=== PATIENT | male | born 1965 | race Caucasian/White ===

== ENCOUNTER 2022-07-18 02:30 | Inpatient (IN) | payer MEDICAID, SELFPAY ==
[2022-07-18] VITALS (15 sets, daily range): BP systolic 145–227; BP diastolic 76–128; PULSE 56–89; RESP 16–22; TEMP 36.4–37.1; O2SAT 93–97; BMI 30.7
--- NOTE | 2022-07-18 02:47 | USR_ITS ---
PROCEDURE INFORMATION: Exam: US Abdomen, Limited; Right Upper Quadrant Exam date and time: 07/18/2022 3:10 AM Age: 57 years old Clinical indication: Abdominal pain; Patient HX: Ruq pain 12/11 today TECHNIQUE: Imaging protocol: Real time ultrasound of the abdomen with image documentation. Limited exam focused on the right upper quadrant. COMPARISON: No relevant prior studies available. FINDINGS: Liver: Fatty infiltration of the liver. Gallbladder: Prominent echogenic bile in the gallbladder and small quantity of pericholecystic fluid. Technologist reported positive sonographic Ac sign. Biliary ducts: Normal caliber of the incompletely visualized common bile duct measuring 4 mm in diameter. Pancreas: Partial obscuration of the pancreas by bowel gas. Right kidney: Normal morphology of the visualized right kidney. No hydronephrosis. Aorta: Normal caliber of the incompletely visualized abdominal aorta, which is partially obscured by bowel gas. Inferior vena cava: Unremarkable IVC is visualized. US/US gall bladder [id number] IMPRESSION: Abnormal gallbladder with prominent echogenic bile, pericholecystic fluid, and technologist reported positive sonographic Ac sign.
--- NOTE | 2022-07-18 02:48 | ED_ITS ---
HPI - Abdominal Pain General: Chief Complaint: Abdominal Pain Stated Complaint: R flank pain Time Seen by Provider: 07/18/22 02:32 Source: patient Mode of arrival: ambulatory Limitations: no limitations History of Present Illness: 57-year-old male states that he is been having severe right upper quadrant abdominal pain since 11 last night he states he had eaten fish tank and had pain onset after that. He states the pain is sharp in nature rates an 8 out of 10 much worse with palpation he denies any radiation of his pain denies any issues with his gallbladder in the past no abdominal surgeries in the past. He had no vomiting some nausea. Associated Symptoms: Denies chills, dysuria and fever(s) Review of Systems Const: Denies: fever(s), chills, body aches or change in appetite Eyes: Denies: blurry vision or eye discomfort ENMT: Denies: throat pain or dental pain Card: Denies: chest pain Resp: Denies: dyspnea GI: Reports: abdominal pain : Denies: dysuria Musc: Denies: neck pain or back pain Skin/Breast: Denies: rash Neuro: Denies: headache(s) Psych: Denies: depression Simeon/Lymph: Denies: easy bruising All/Imm: Denies: urticaria PFSH ED PFSH: Medical History (Updated 07/18/22 @ 04:14 by Pal Coles MD) No pertinent past medical history Social History (Updated 07/18/22 @ 02:49 by Pal Coles MD) Substance/Drug Use: never Physical Exam Const: COMMON NORMALS: no acute distress, patient oriented x3 and healthy appearing HENMT: COMMON NORMALS: normocephalic and atraumatic HEAD & SCALP: normocephalic and atraumatic Eye: COMMON NORMALS: Equal, round and reactive pupils present and EOMs intact bilaterally PUPIL: Yes Equal, round and reactive pupils present Neck/C-Spine: COMMON NORMALS: full ROM and supple Chest: COMMONS NORMALS: normal inspection of the chest and normal palpation of entire chest wall Resp: COMMON NORMALS: normal respiratory effort, No retractions, No use of accessory muscles and clear to auscultation bilaterally AUSCULTATION: clear to auscultation bilaterally Cardio: COMMON NORMALS: regular rate, regular rhythm and No murmurs present (Cardio) RATE: regular rate RHYTHM: regular rhythm GI: COMMON NORMALS: Normal to inspection, nondistended, normoactive bowel sounds present, Soft to palpation and no masses PALPATION: Yes Soft to palpation and Yes Tenderness to palpation present (GI) Details: RUQ Extremity: COMMON NORMALS: normal to inspection and full ROM Neuro: COMMON NORMALS: patient oriented x3, moves all extremities and no focal motor deficits Psych: COMMON NORMALS: mental status grossly normal, Normal thought process present and cooperative THOUGHT PROCESS: Normal thought process present Skin: COMMON NORMALS: no rashes or lesions noted and no wounds GENERAL SKIN EXAM: no rashes or lesions noted Course Vital Signs: Vital signs: Vital Signs Temperature 97.6 F 07/18/22 02:46 Pulse Rate 72 07/18/22 02:53 Respiratory Rate 18 07/18/22 03:05 Blood Pressure 216/116 07/18/22 02:53 Pulse Oximetry 93 07/18/22 02:53 Oxygen Delivery Me thod 07/18/22 02:53 MDM - Abdominal Pain Medical Decision Making Patient presents with right upper quadrant pain he is quite tender ultrasound does show cholecystitis he also has hypertension here is likely undiagnosed I spoke to hospitalist along with surgeon will admit at this time patient given IV antibiotics. Lab Data 07/18/22 03:00 07/18/22 03:00 Labs/Radiology: Laboratory Results WBC 11.4 10^3/uL (4.0-10.0) H 07/18/22 03:00 RBC 6.47 10^6/uL (4.1-5.3) H 07/18/22 03:00 Hgb 18.1 g/dL (11.7-16.6) H 07/18/22 03:00 Hct 51.5 % (42.0-52.0) 07/18/22 03:00 MCV 79.6 fl (80-94) L 07/18/22 03:00 MCH 28.0 pg (28.0-34.0) 07/18/22 03:00 MCHC 35.1 g/dL (30.0-36.0) 07/18/22 03:00 RDW 12.4 % (12.1-15.1) 07/18/22 03:00 Plt Count 161 10^3/cmm (130-400) 07/18/22 03:00 MPV 10.7 fL (7.4-10.4) H 07/18/22 03:00 Neut % (Auto) 81.3 % 07/18/22 03:00 Lymph % (Auto) 13.6 % 07/18/22 03:00 Gibson % (Auto) 3.3 % 07/18/22 03:00 Eos % (Auto) 0.9 % 07/18/22 03:00 Baso % (Auto) 0.4 % 07/18/22 03:00 Neut # (Auto) 9.22 10^3/uL (1.8-7.7) H 07/18/22 03:00 Lymph # (Auto) 1.5 10^3/uL (0.8-4.8) 07/18/22 03:00 Gibson # (Auto) 0.4 10^3/uL (0.2-0.9) 07/18/22 03:00 Eos # (Auto) 0.1 10^3/uL (0.0-0.8) 07/18/22 03:00 Baso # (Auto) 0.1 10^3/uL (0.0-0.1) 07/18/22 03:00 Nucleated RBC % (auto) 0 % 07/18/22 03:00 Nucleated RBCs # 0.0 /100WBC 07/18/22 03:00 Sodium 134 mmol/L (136-145) L 07/18/22 03:00 Potassium 4.1 mmol/L (3.5-5.1) 07/18/22 03:00 Chloride 99 mmol/L (98-107) 07/18/22 03:00 Carbon Dioxide 22 mmol/L (22-29) 07/18/22 03:00 Anion Gap 17.1 (5-19) 07/18/22 03:00 BUN 13 mg/dL (6-20) 07/18/22 03:00 Creatinine 1.0 mg/dL (0.7-1.2) 07/18/22 03:00 GFR Calculation 77.0 mL/min (90-130) L 07/18/22 03:00 Glucose 375 mg/dL (65-115) H 07/18/22 03:00 Calculated Osmolality 293 mOsm/kg (285-295) 07/18/22 03:00 Calcium 9.0 mg/dL (8.5-10.5) 07/18/22 03:00 Total Bilirubin 0.7 mg/dL (0.15-1.2) 07/18/22 03:00 AST 18 U/L (0-40) 07/18/22 03:00 ALT 27 U/L (0-41) 07/18/22 03:00 Alkaline Phosphatase 131 U/L (40-130) H 07/18/22 03:00 Total Protein 6.9 g/dL (6.6-8.7) 07/18/22 03:00 Albumin 4.0 g/dL (3.5-5.2) 07/18/22 03:00 Globulin 2.9 g/dL (1.3-4.6) 07/18/22 03:00 Lipase 27 U/L (13-60) 07/18/22 03:00 EKG Data EKG 1: I personally reviewed and interpreted this EKG as follows: EKG interpretation date: 07/18/22 EKG interpretation time: 02:55 Interpretation: nsr hr [address] or t wave abnormalities qrs 104 qtc 397 Discharge Plan Discharge Patient Disposition: Admitted As Inpatient Clinical Impression: Cholecystitis, Hypertension Coding Level of Care Code ED Imaging Science Professor for Cyn Cummings
--- NOTE | 2022-07-18 02:48 | ECG_ITS ---
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
[2022-07-18] MEDS: ondansetron 2 mg/ML SDV 2 mL 4 MG IVP (03:04)
[2022-07-18] MEDS: sodium chloride 0.9% 1,000 ML 999 ML IV (03:04)
[2022-07-18] MEDS: HYDROmorphone 1 mg/mL INJ 1 mL IVP (03:05)
[2022-07-18 03:12] LABS: Basophils # 0.1 10^3/uL (0.0-0.1); Basophils % 0.4 %; Eosinophils # 0.1 10^3/uL (0.0-0.8); Eosinophils % 0.9 %; Hematocrit 51.5 % (42.0-52.0); Hemoglobin 18.1 g/dL (11.7-16.6); Lymphocytes # 1.5 10^3/uL (0.8-4.8); Lymphocytes % 13.6 %; Mean Corpuscular HGB Conc 35.1 g/dL (30.0-36.0); Mean Corpuscular Volume 79.6 fl (80-94); Mean Platelet Volume 10.7 fL (7.4-10.4); Monocytes # 0.4 10^3/uL (0.2-0.9); Monocytes % 3.3 %; Neutrophils # 9.22 10^3/uL (1.8-7.7); Neutrophils % 81.3 %; Nucleated Red Blood Cells % 0 %; Platelet Count 161 10^3/cmm (130-400); Red Blood Count 6.47 10^6/uL (4.1-5.3); Red Cell Distribution Width 12.4 % (12.1-15.1); White Blood Count 11.4 10^3/uL (4.0-10.0)
[2022-07-18 03:29] LABS: Alanine Aminotransferase 27 U/L (0-41); Alkaline Phosphatase 131 U/L (40-130); Anion Gap 17.1 (5-19); Aspartate Amino Transferase 18 U/L (0-40); Blood Urea Nitrogen 13 mg/dL (6-20); Carbon Dioxide 22 mmol/L (22-29); Chloride 99 mmol/L (98-107); Globulin 2.9 g/dL (1.3-4.6); Glucose 375 mg/dL (65-115); Lipase 27 U/L (13-60); Osmolality Calculated 293 mOsm/kg (285-295); Potassium 4.1 mmol/L (3.5-5.1); Sodium 134 mmol/L (136-145); Total Bilirubin 0.7 mg/dL (0.15-1.2); Total Protein 6.9 g/dL (6.6-8.7)
[2022-07-18] MEDS: hyDRALAzine 20 mg/mL INJ 1 mL 10 MG IVP (04:22)
[2022-07-18] MEDS: piperacillin-tazobactam 3.375 GM in sodium chloride 0.9% (plus) 50 ML IV ×3 (04:22→20:17)
[2022-07-18 04:24] LABS: Add Urine Microscopic? NO; Charge for UA Resulting for Rev
[2022-07-18 04:42] LABS: Bilirubin Urine Neg (Negative); Blood Urine Neg (Negative); Glucose Urine UA 4+ (Normal); Ketones Urine Negative (Negative); Leukocyte Esterase Urine Negative (Negative); Nitrate Urine Negative (Negative); Protein Urine Neg (Negative); Specific Gravity, Urine 1.015 (1.005-1.030); Urine Appearance Clear (CLEAR); Urine Color Yellow (Yellow); Urobilinogen Urine Norm (Negative); pH Urine 6 (5-7)
--- NOTE | 2022-07-18 05:13 | P.HP_ITS ---
Providers/Chief Complaint Admitting Physician: Lowell Bojorquez Chief Complaint: R flank pain History of Present Illness Pleasant 57-year-old gentleman without formal diagnosis of hypertension, but not measuring blood pressures at home sometimes with his partner's blood pressure cuff blood pressures seem to run in the 170s, smoking, right inguinal hernia, recent left shoulder injury, otherwise at baseline state of health, sta rted having progressive right upper quadrant pain yesterday getting much worse in the evening. He has not had any fever nausea or vomiting. In ER noted leukocytosis 11.4, afebrile, without tachycardia, very hypertensive initially 227/128 which improved down to 171/102 after pain medication. Noted alk phos with mild elevation 131. T. bili, transaminases normal. Normal lipase. Unremarkable UA. Right upper quadrant ultrasound with signs of cholecystitis. Admission is requested with consultation to surgery. Review of Systems Const: Denies: fever(s), chills, body aches or malaise ENMT: Denies: throat pain Card: Denies: chest pain, edema or dyspnea on exertion Resp: Denies: dyspnea, productive cough or change in phlegm color GI: Reports: abdominal pain; Denies: nausea, vomiting, diarrhea, constipation, hematochezia or melena : Denies: flank pain, difficulty urinating or urinary frequency Musc: Denies: joint redness Skin/Breast: Denies: rash or new lesions Neuro: Denies: headache(s) Medications/Allergies Allergies Allergy/AdvReac Type Severity Reaction Status Date / Time No Known Allergies Allergy Verified 07/18/22 04:19 PFSH Acute PFSH: Medical History No pertinent past medical history Recurrent inguinal hernia Smokes cigarettes Surgical History H/O hernia repair Family History Other Unknown family medical history Social History Smoking and tobacco status: current every day smoker Alcohol intake: current Alcohol intake frequency: holidays/special occasions only Substance/Drug Use: never Lives independently: Yes Household members: significant other Current occupational status: employed Vitals/I&O/Wt Last Vital Signs Temp 97.6 F 07/18/22 02:46 Pulse 89 07/18/22 04:30 Resp 16 07/18/22 04:30 BP 171/102 07/18/22 03:53 Pulse Ox 96 07/18/22 04:30 O2 Del Method 07/18/22 03:53 07/17/22 07/17/22 07/18/22 14:59 22:59 06:59 Intake Total 1000 / 1000 Balance 1000 / 1000 Weight last 48 hrs Weight 99.79 kg Physical Exam Const: COMMON NORMALS: patient oriented x3 and alert GENERAL APPEARANCE: cooperative ORIENTATION/CONSCIOUSNESS: Yes awake HENMT: COMMON NORMALS: oropharynx normal Neck/C-Spine: COMMON NORMALS: no JVD Resp: COMMON NORMALS: normal respiratory effort and clear to auscultation bilaterally AUSCULTATION: clear to auscultation bilaterally Cardio: COMMON NORMALS: no JVD, regular rhythm, S1 normal heart sound present, S2 normal heart sound present and No murmurs present (Cardio) RHYTHM: regular rhythm HEART SOUNDS: S1 normal heart sound present and S2 normal heart sound present GI: COMMON NORMALS: Normal to inspection, nondistended, normoactive bowel sounds present and Soft to palpation PALPATION: Yes Soft to palpation and Yes Tenderness to palpation present (GI) Details: RUQ OTHER: Soft, nontender R inguinal hernia. Extremity: COMMON NORMALS: no joint enlargement and no pedal edema OTHER: L shoulder antalgic position, no swelling or redness. Neuro: COMMON NORMALS: patient oriented x3 and moves all extremities SENSORIUM/ORIENTATION: Yes alert Skin: COMMON NORMALS: no rashes or lesions noted GENERAL SKIN EXAM: no rashes or lesions noted Data 07/18/22 03:00 07/18/22 03:00 A&P Assessment and plan (1) Cholecystitis: Right upper quadrant pain and tenderness, mild alk phos elevation, reported signs of cholecystitis on preliminary ultrasound read. Radiology read pending. Surgery is consulted for further assessment for suspected cholecystitis, possible cholecystectomy. His blood pressure was elevated in ER, he does sounds like have hypertension, discussed with him and his significant other. Blood pressure is better after pain medication and hydralazine to 171/102. Would not try to pursue to decrease to blood pressure much further at the moment as with anesthesia it decreased further, and additionally sounds like he usually runs in 70s at baseline. Continue pain control to help manage blood pressure. He otherwise is very active, he has had recent shoulder injury on the left, and will need to follow-up with regards to this, and also has right inguinal hernia recurrence after prior repair, but he is ambulatory, without any limitations of shortness of breath, chest pain, or other. Baseline EKG has been obtained. In case proceeding with surgery would proceed with usual precautions. In the meantime continue Zosyn. NPO. Follow-up CBC and liver parameters requested. Discussed with ER physician, ER documentation reviewed. (2) Hypertension: Received hydralazine in ER as well as pain medication. We will add hydralazine as needed in case blood pressure again rising above 200 mmHg. Will not at the moment initiate oral medication yet. Long-term would benefit from treatment as discussed with his significant other. He states he already tries to avoid salt. (3) Smokes cigarettes: Not planning to quit. Declines nicotine replacement. Follow-up with PCP. (4) Injury of left shoulder: Recent injury at work with a low drainage heard a pop in his left shoulder. Has been having pain. No significant swelling or erythema. We will obtain plain x- ray. Should follow-up with PCP for reassessment and further referral for MRI. (5) Recurrent inguinal hernia: Previously repaired right inguinal hernia now with recurrence. No suggestion of incarceration, should follow-up with PCP and outpatient follow-up with surgery. Plan Consulted case management: Needs PCP Attestations Medical Necessity Statement*: Place in observation for additional assessment of management of acute cholecystitis, untreated hypertension. Diagnoses Cholecystitis K81.9 Hypertension I10 Smokes cigarettes F17.210 Injury of left shoulder S49.92XA Recurrent inguinal hernia K40.91
--- NOTE | 2022-07-18 07:25 | PC.NURSE ---
Report called to SIRISHA Peoples on med surg
--- NOTE | 2022-07-18 08:03 | XR_ITS ---
WS: [id number] XR shoulder LT min 2V* [id number] REASON FOR EXAM: pain after injury with a wrench FINDINGS: No fracture or focal bone lesion. Glenohumeral joint is intact. No bony abnormality of the glenoid or humeral head. No soft tissue abnormality. Moderate osteophytosis of the acromioclavicular joint. XR/XR shoulder LT min 2V* [id number] IMPRESSION: No acute abnormality. Osteoarthritis of the acromioclavicular joint.
[2022-07-18 08:07] LABS: Glucose Point of Care 290 mg/dL (70-110)
[2022-07-18] MEDS: hyDRALAzine 20 mg/mL INJ 1 mL 5 MG IVP (09:01)
[2022-07-18 09:09] LABS: Estmated Average Glucose 232; Hemoglobin A1C 9.7 % (4.0-6.0)
--- NOTE | 2022-07-18 09:59 | P.CONIM_ITS ---
Providers/Reason For Consult Consulting Physician/Specialty*: Fareed Brooks M.D./General Surgery Reason for Consult*: Acute RUQ abdominal pain Attending Physician: Gerardo Ovalle MD History of Present Illness History of Present Illness Malachi Ames Jr is a 57 year old male who presented to our ER last night following supper, with insidious onset of RUQ abdominal pain. He attempted to induce vomiting, and evacuated his bowels for pressure relief with some success. However, he continues to feel abdominal discomfort. He says that this has been worsening over the past month, along with more stool frequency. His reports that he is experiencing progressive urinary frequency and urgency. He does not seek medical care reliably, although he is currently being assessed for recurrent right inguinal hernia following prior repair. Review of Systems General: Reports: 10 or more systems reviewed and unremarkable except in HPI and below Const: Denies: fever(s), chills or night sweats Eyes: Denies: change in vision, blurry vision or yellow eyes ENMT: Denies: odynophagia Card: Denies: chest pain, palpitations or syncope Resp: Denies: dyspnea or productive cough GI: Reports: abdominal pain (Right upper quadrant) and diarrhea : Reports: urinary frequency and urinary urgency Musc: Denies: neck pain or back pain Neuro: Denies: behavioral changes Psych: Denies: anxiety, depression or change in appetite Medications/Allergies Home Medications Medication Instructions Recorded Confirmed Last Taken Type glucosamine-chondroitin 250 mg-200 2 tab PO TID 07/18/22 07/18/22 Unknown History mg tablet (Osteo Bi-Flex) mjxkzths-hltxmnru-vklpl acid 400 1 tab PO DAILY 07/18/22 07/18/22 Unknown History mcg-vit K 20 mcg-lycop 300 mcg tablet Allergies Allergy/AdvReac Type Severity Reaction Status Date / Time No Known Allergies Allergy Verified 07/18/22 04:19 Current Medications Generic Name Dose Route Start Last Admin Trade Name Freq PRN Reason Stop Dose Admin Hydralazine HCl 5 mg 07/18/22 08:03 07/18/22 09:01 Hydralazine 20 Mg/Ml Inj 1 Ml IVP 5 mg Q4H PRN Administration HYPERTENSION PFSH Acute PFSH: Medical History No pertinent past medical history Recurrent inguinal hernia Smokes cigarettes Surgical History H/O hernia repair Family History Other Unknown family medical history Social History Smoking and tobacco status: current every day smoker Alcohol intake: current Alcohol intake frequency: holidays/special occasions only Substance/Drug Use: never Lives independently: Yes Household members: significant other Current occupational status: employed Vitals/I&O/Wt Last Vital Signs Temp 98.1 F 07/18/22 07:39 Pulse 66 07/18/22 08:03 Resp 16 07/18/22 08:03 BP 211/96 07/18/22 08:03 Pulse Ox 96 07/18/22 08:03 O2 Del Method 07/18/22 09:41 07/17/22 07/18/22 07/18/22 22:59 06:59 14:59 Intake Total 1050 / 1050 Balance 1050 / 1050 Weight last 48 hrs Weight 220 lb Weight 220 lb Physical Exam Narrative: Well-developed, well-nourished male in no distress at time of my assessment Const: COMMON NORMALS: average body habitus, patient oriented x3 and healthy appearing HENMT: COMMON NORMALS: normocephalic and atraumatic HEAD & SCALP: normocephalic and atraumatic Eye: COMMON NORMALS: Equal, round and reactive pupils present, EOMs intact bilaterally and no scleral icterus PUPIL: Yes Equal, round and reactive pupils present Neck/C-Spine: COMMON NORMALS: full ROM and supple Lymph: LYMPHATIC: no lymphadenopathy noted Resp: COMMON NORMALS: clear to auscultation bilaterally AUSCULTATION: clear to auscultation bilaterally Cardio: COMMON NORMALS: regular rhythm and No murmurs present (Cardio) RHYTHM: regular rhythm GI: COMMON NORMALS: Soft to palpation PALPATION: Yes Soft to palpation, Yes Tenderness to palpation present (GI) Details: RUQ, No Hepatosplenomegaly present and No Rebound tenderness present : COMMON NORMALS: Yes no CVA tenderness BLADDER/KIDNEY EXAM: Yes no CVA tenderness Back/Pelvis: COMMON NORMALS: no CVA tenderness Extremity: COMMON NORMALS: full ROM Neuro: COMMON NORMALS: patient oriented x3 Psych: COMMON NORMALS: mental status grossly normal, cooperative and speech normal SPEECH: Yes normal speech Data 07/18/22 03:00 07/18/22 03:00 US: My impression: Biliary sludge, no clear gallstones A&P Assessment and plan (1) Acute cholecystitis without calculus: I think it is clear that this patient has both undiagnosed hypertension and undiagnosed type II diabetes mellitus, and needs medical stabilization prior to embarkation upon a general anesthetic/laparoscopic cholecystectomy. At the same time, diabetics are inclined toward a more severe perioperative course with gallbladder infection, so some precipitousness is in order to address underlying possible gall bladder infection, including surgical intervention on this visit. Plan: await medical assessment/stabilization first, in anticipation of possible laparoscopic cholecystectomy in the next 24-72 hours. Coding Level of Care Code Acute Code for [facility] Fwd Diagnoses Acute cholecystitis without calculus K81.0
--- NOTE | 2022-07-18 11:21 | P.PN_ITS ---
Subjective Subjective: 57yo M seen at bedside States he is having epigastric and RUQ pain. slightly improved from admission. pt admits to poor diet. No significant PMHx but pt newly diagnosed HTN and DM2. Denies emesis, but admits to nausea no CP but continues to have discomfort. Vitals/I&O/Wt Last Vital Signs Temp 98.1 F 07/18/22 07:39 Pulse 66 07/18/22 08:03 Resp 16 07/18/22 08:03 BP 160/79 07/18/22 10:18 Pulse Ox 96 07/18/22 08:03 O2 Del Method 07/18/22 09:41 07/17/22 07/18/22 07/18/22 22:59 06:59 14:59 Intake Total 1050 / 1050 Balance 1050 / 1050 Weight last 48 hrs Weight 220 lb Weight 220 lb Physical Exam Narrative: General: AOx3, no acute distress, well developed, well nourished, appears stated age psych: appropriate mood and affect. good judgment and insight. No suicidal or homicidal ideation. Head: atraumatic, normocephalic, no mass/lesions Eyes: conjunctiva clear w/o exudate or hemorrhage. non-icteric, EOM intact, PERRLA. no signs of nystagmus Nose: nasal mucosa pink, septum midline Oropharynx: good dentition, pink moist mucosa, non-deviated tongue, no buccal nodules/lesions. no pharyngeal exudate Neck: FROM, no lymphadenopathy, no tracheal deviation, non tender, thyroid gland normal w/o mass. supple Chest: atraumatic, symmetrical CVD: RRR, normal S1 and S2, no M/R/G. 2+ pulse x 4 extremities, no JVD, no son tid bruit. Lungs: clear lung sounds in all bryant, no rhonchi, wheezing, rales. Abdomen: generalized ttp worse in RUQ, ND, soft, NABS. No hepatosplenomegaly, no mass. umbilicus midline w/o herniation : not done on todays examination Rectal: not done on todays examination Spine: no visible deformities, FROM, 5/5 strength, no lordosis or kyphosis. no paraspinal ttp.non tender bony features. no discomfort with ROM Extremities: FROM and 5/5 strength in BUE and BLE. no visible joint abnormalities on active and passive ROM. Neuro: CNII-XII grossly intact. No atrophy, weakness, tremors or clonus.? 2+ DTR, no sensory abnormalities. Skin:? no rash, vesicles, lesions. Data 07/18/22 03:00 07/18/22 03:00 A&P Assessment and plan (1) Acute cholecystitis without calculus: Seen by Dr. Brooks (gen surg) continue IV Zofran will hold off on surgery at this time givne uncontrolled HTN and DM2. Re-eval in AM (2) Hypertension: Hydralazine 5ml IVP q4hrs PRN will start losartan 50mg, Norvasc 5mg (3) DM type 2 (diabetes mellitus, type 2): A1c 9.7 newly diagnosed DM2 LDSSI will start metformin 500mg BID, diabetic diet (4) Recurrent inguinal hernia: Previously repaired right inguinal hernia now with recurrence.? No suggestion of incarceration, should follow-up with PCP and outpatient follow-up with surgery. (5) Tobacco use disorder: no desire to quit (6) Injury of left shoulder: Recent injury at work with a low drainage heard a pop in his left shoulder.? Has been having pain.? No significant swelling or erythema.? We will obtain plain x- ray.? Should follow-up with PCP for reassessment and further referral for MRI. monitor as OP Plan will monitor BP and glucose if improved will re-eval in AM for surgery diabetic diet, NPO at tn Attestations Medical Necessity Statement*: requires hospitalization in order to control blood pressure and glucose prior to potential lap carolyn Coding Level of Care Code 58209 Diagnoses Acute cholecystitis without calculus K81.0 Hypertension I10 DM type 2 (diabetes mellitus, type 2) E11.9 Recurrent inguinal hernia K40.91 Tobacco use disorder F17.200 Injury of left shoulder S49.92XA
[2022-07-18 12:46] LABS: Glucose Point of Care 306 mg/dL (70-110)
[2022-07-18] MEDS: insulin lispro 100 unit/1 mL SUBCUT ×2 (12:59→18:35)
[2022-07-18] MEDS: losartan 50 mg Tablet PO (13:01)
[2022-07-18 17:19] LABS: Glucose Point of Care 219 mg/dL (70-110)
[2022-07-18] MEDS: metformin XR 500 MG Tablet PO (18:33)
[2022-07-18] MEDS: HYDROmorphone 1 mg/mL INJ 1 mL 0.5 MG IVP (18:33)
[2022-07-18] MEDS: amlodipine 5 mg Tablet PO (20:16)
[2022-07-18 21:20] LABS: Glucose Point of Care 254 mg/dL (70-110)
[2022-07-19] VITALS (19 sets, daily range): BP systolic 118–165; BP diastolic 71–91; PULSE 54–95; RESP 16–18; TEMP 36.1–36.9; O2SAT 90–98
[2022-07-19] MEDS: piperacillin-tazobactam 3.375 GM in sodium chloride 0.9% (plus) 50 ML IV ×3 (03:20→23:02)
[2022-07-19] MEDS: HYDROmorphone 1 mg/mL INJ 1 mL 0.5 MG IVP (03:29)
[2022-07-19 04:25] LABS: Basophils # 0.1 10^3/uL (0.0-0.1); Basophils % 0.4 %; Eosinophils # 0.3 10^3/uL (0.0-0.8); Eosinophils % 2.2 %; Hematocrit 49.8 % (42.0-52.0); Lymphocytes # 3.2 10^3/uL (0.8-4.8); Lymphocytes % 28.1 %; Mean Corpuscular HGB Conc 34.1 g/dL (30.0-36.0); Mean Corpuscular Hemoglobin 27.8 pg (28.0-34.0); Mean Corpuscular Volume 81.5 fl (80-94); Mean Platelet Volume 11.5 fL (7.4-10.4); Monocytes # 0.6 10^3/uL (0.2-0.9); Monocytes % 5.2 %; Neutrophils # 7.13 10^3/uL (1.8-7.7); Neutrophils % 63.6 %; Nucleated Red Blood Cells % 0 %; Platelet Count 158 10^3/cmm (130-400); Red Blood Count 6.11 10^6/uL (4.1-5.3); Red Cell Distribution Width 12.8 % (12.1-15.1); White Blood Count 11.2 10^3/uL (4.0-10.0)
[2022-07-19 04:49] LABS: Alanine Aminotransferase 20 U/L (0-41); Albumin Level 3.6 g/dL (3.5-5.2); Alkaline Phosphatase 101 U/L (40-130); Anion Gap 14.9 (5-19); Aspartate Amino Transferase 12 U/L (0-40); Blood Urea Nitrogen 14 mg/dL (6-20); Calcium 8.9 mg/dL (8.5-10.5); Carbon Dioxide 24 mmol/L (22-29); Chloride 101 mmol/L (98-107); Globulin 2.7 g/dL (1.3-4.6); Glucose 241 mg/dL (65-115); Osmolality Calculated 290 mOsm/kg (285-295); Potassium 3.9 mmol/L (3.5-5.1); Sodium 136 mmol/L (136-145); Total Bilirubin 0.9 mg/dL (0.15-1.2); Total Protein 6.3 g/dL (6.6-8.7)
[2022-07-19 06:23] LABS: Glucose Point of Care 250 mg/dL (70-110)
--- NOTE | 2022-07-19 07:08 | PM.PN ---
Subjective Subjective: 57yo M seen at bedside States he is feeling improved this AM. still with RUQ pain. NPO overnight. feeling improved with new medication. Denies fevers, chills, Nausea, emesis, diarrhea, CP, palpitations, SOB Vitals/I&O/Wt Last Vital Signs Temp 98.3 F 07/19/22 04:00 Pulse 60 07/19/22 04:00 Resp 16 07/19/22 04:00 BP 118/71 07/19/22 04:00 Pulse Ox 92 07/19/22 04:00 O2 Del Method 07/19/22 04:00 07/18/22 07/19/22 07/19/22 22:59 06:59 14:59 Intake Total 530 / 770 50 / 820 Output Total 1200 / 1200 1100 / 2300 Balance -670 / -430 -1050 / -1480 Weight last 48 hrs Weight 220 lb Weight 220 lb Physical Exam Narrative: General: AOx3, no acute distress, well developed, well nourished, appears stated age psych: appropriate mood and affect. good judgment and insight. No suicidal or homicidal ideation. Oropharynx: good dentition, pink moist mucosa, non-deviated tongue, no buccal nodules/lesions. no pharyngeal exudate Neck: FROM, no lymphadenopathy, no tracheal deviation, non tender, thyroid gland normal w/o mass. supple Chest: atraumatic, symmetrical CVD: RRR, normal S1 and S2, no M/R/G. 2+ pulse x 4 extremities, no JVD, no carotid bruit. Lungs: clear lung sounds in all bryant, no rhonchi, wheezing, rales. Abdomen: generalized ttp worse in RUQ, ND, soft, NABS. No hepatosplenomegaly, no mass. umbilicus midline w/o herniation Extremities: FROM and 5/5 strength in BUE and BLE. no visible joint abnormalities on active and passive ROM. Neuro: CNII-XII grossly intact. No atrophy, weakness, tremors or clonus.? 2+ DTR, no sensory abnormalities. Skin:? no rash, vesicles, lesions. Data 07/19/22 03:27 07/19/22 03:27 A&P Assessment and plan (1) Acute cholecystitis without calculus: Seen by Dr. Brooks (gen surg) continue IV Zofran pending surgical re-eval this AM (2) Hypertension: BP well controlled this AM. Optomized for surgery now 118/71 Continue Losartan 50mg qAM and Norvasc 5mg qPM Hydralazine 5ml IVP q4hrs PRN (3) DM type 2 (diabetes mellitus, type 2): A1c 9.7 newly diagnosed DM2 LDSSI, Metformin 500mg BID, diabetic diet BG improving but still in 200's (4) Recurrent inguinal hernia: Previously repaired right inguinal hernia now with recurrence.? No suggestion of incarceration, should follow-up with PCP and outpatient follow-up with surgery. (5) Tobacco use disorder: no desire to quit (6) Injury of left shoulder: Recent injury at work with a low drainage heard a pop in his left shoulder.? Has been having pain.? No significant swelling or erythema.? XRAY +ve for OA, no fractures. Consider MRI as OP s/o PCP assessment. Plan pending surgial eval this AM. pt optomized for surgery continue new medications keep NPO this AM Attestations Medical Necessity Statement*: requiring hospitalization for lap carolyn Coding Level of Care Code 97704 Diagnoses Acute cholecystitis without calculus K81.0 Hypertension I10 DM type 2 (diabetes mellitus, type 2) E11.9 Recurrent inguinal hernia K40.91 Tobacco use disorder F17.200 Injury of left shoulder S49.92XA
[2022-07-19] MEDS: insulin lispro 100 unit/1 mL SUBCUT ×2 (08:34→17:22)
[2022-07-19] MEDS: amlodipine 5 mg Tablet PO (08:34)
[2022-07-19] MEDS: losartan 50 mg Tablet PO (08:34)
[2022-07-19] MEDS: enoxaparin 30 mg/0.3 mL Syringe SUBCUT (08:35)
[2022-07-19] MEDS: metformin XR 500 MG Tablet PO ×2 (08:36→17:22)
[2022-07-19] MEDS: sodium chloride 0.9% 500 ML IV (08:36)
[2022-07-19 09:57] LABS: Glucose Point of Care 202 mg/dL (70-110)
[2022-07-19] MEDS: sodium chloride 0.9% 1,000 ML 30 ML IV (10:12)
--- NOTE | 2022-07-19 10:37 | W.PM.OPSUD ---
Surgery/Procedure H&P Update DATE OF PROCEDURE: July 19, 2022 DATE H&P PERFORMED: 07/18/22 CHANGES TO PREVIOUS DOCUMENTATION: No changes. Blood pressure and blood sugar are better-controlled today, and pain is dramatically less PREOP DIAGNOSIS: Acalculous cholecystitis PLANNED PROCEDURE: Operation Date: 07/19/22 10:45 Proposed Procedures p Laparoscopic Cholecystectomy(Not Applicable) - Fareed Brooks MD
--- NOTE | 2022-07-19 10:50 | ANES.PREANE2 ---
Pre-Anesthetic Assessment Height/Weight: Height 1.8 m Weight 99.79 kg Temp Pulse Resp BP Pulse Ox O2 Del Method O2 Flow Rate 98.4 F 67 17 144/84 95 6 07/19/22 09:40 07/19/22 09:40 07/19/22 09:40 07/19/22 09:40 07/19/22 09:40 07/19/22 09:40 07/19/22 10:34 Preop Diagnosis: Acalculous cholecystitis Operation Date: 07/19/22 10:45 Proposed Procedures p Laparoscopic Cholecystectomy(Not Applicable) - Fareed Brooks MD Familial anesthetic complications: none Was Beta Pieter taken within 24 hours: N/A Was Clonidine taken within 24 hours: N/A Social Tobacco and No alcohol Exam alert, oriented x 3 and regular rate & rhythm Airway Submandibular: within normal limits Cervical ROM: within normal limits Mallampati: Class II Dentition: false Pulmonary Chronic Obstructive Pulmonary Disease CV/HEM Hypertension Metabolic Diabetes Mellitus Anesthetic Plan ASA status: 3 Anesthesia: General Medications/Allergies Home Medications Medication Instructions Recorded Confirmed Last Taken Type glucosamine-chondroitin 250 mg-200 2 tab PO TID 07/18/22 07/18/22 Unknown History mg tablet (Osteo Bi-Flex) dbrhokfp-thmezmbd-lrqmx acid 400 1 tab PO DAILY 07/18/22 07/18/22 Unknown History mcg-vit K 20 mcg-lycop 300 mcg tablet Allergies Allergy/AdvReac Type Severity Reaction Status Date / Time No Known Allergies Allergy Verified 07/18/22 04:19 Current Medications Generic Name Dose Route Start Last Admin Trade Name Freq PRN Reason Stop Dose Admin Amlodipine Besylate 5 mg 07/18/22 20:00 07/19/22 08:34 Amlodipine 5 Mg Tablet PO 5 mg DAILY CANDIDO Administration Hydralazine HCl 5 mg 07/18/22 08:03 07/18/22 09:01 Hydralazine 20 Mg/Ml Inj 1 Ml IVP 5 mg Q4H PRN Administration HYPERTENSION Hydromorphone HCl 0.5 mg 07/18/22 08:03 07/19/22 03:29 Hydromorphone 1 Mg/Ml Inj 1 Ml IVP 0.5 mg Q6H PRN Administration SEVERE PAIN Piperacillin Sod/Tazobactam 50 mls @ 12.5 mls/hr 07/18/22 12:00 07/19/22 08:43 Sod 3.375 gm/ Sodium Chloride IV Infused Q8H CANDIDO Infusion Protocol Sodium Chloride 1,000 mls @ 30 mls/hr 07/19/22 10:00 07/19/22 10:12 Sodium Chloride 0.9% IV 07/20/22 09:59 30 mls/hr .Q24H CANDIDO Administration Insulin Human Lispro 0 unit 07/18/22 12:00 07/19/22 08:34 Insulin Lispro 100 Unit/1 Ml SUBCUT 6 unit TIDWM CANDIDO Administration Protocol Losartan Potassium 50 mg 07/18/22 09:00 07/19/22 08:34 Losartan 50 Mg Tablet PO 50 mg DAILY CANDIDO Administration Metformin HCl 500 mg 07/18/22 18:00 07/19/22 08:36 Metformin Xr 500 Mg Tablet PO 500 mg BID CANDIDO Administration PFSH Anesthesia Medical History No pertinent past medical history Recurrent inguinal hernia Smokes cigarettes Surgical History H/O hernia repair Family History Other Unknown family medical history Social History Smoking and tobacco status: current every day smoker Alcohol intake: current Alcohol intake frequency: holidays/special occasions only Lives independently: Yes Household members: significant other Current occupational status: employed Data Anesthesia 07/19/22 03:27 07/19/22 03:27 Short CBC 07/18/22 07/19/22 Range/Units 03:00 03:27 WBC 11.4 H 11.2 H (4.0-10.0) 10^3/uL Hgb 18.1 H 17.0 H (11.7-16.6) g/dL Hct 51.5 49.8 (42.0-52.0) % MCV 79.6 L 81.5 (80-94) fl Plt Count 161 158 (130-400) 10^3/cmm Neut % (Auto) 81.3 63.6 % Neut # (Auto) 9.22 H 7.13 (1.8-7.7) 10^3/uL BMP 07/18/22 07/19/22 03:00 03:27 Sodium 134 L 136 Potassium 4.1 3.9 Chloride 99 101 Carbon Dioxide 22 24 BUN 13 14 Creatinine 1.0 1.1 Glucose 375 H 241 H Calcium 9.0 8.9 Liver Function 07/18/22 07/19/22 Range/Units 03:00 03:27 Total Bilirubin 0.7 0.9 (0.15-1.2) mg/dL AST 18 12 (0-40) U/L ALT 27 20 (0-41) U/L Alkaline Phosphatase 131 H 101 (40-130) U/L Albumin 4.0 3.6 (3.5-5.2) g/dL Urine 07/18/22 Range/Units 03:49 Urine Color Yellow (Yellow) Urine Appearance Clear (CLEAR) Urine pH 6 (5-7) Ur Specific [place] 1.015 (1.005-1.030) Urine Protein Neg (Negative) Urine Glucose (UA) 4+ H (Normal) Urine Ketones Negative (Negative) Urine Nitrate Negative (Negative) Urine Bilirubin Neg (Negative) Ur Leukocyte Esterase Negative (Negative) Cardiac Studies: No Data to Display
--- NOTE | 2022-07-19 12:22 | PM.OP2 ---
Brief Operative Note Date of procedure: 07/19/22 Pre-op diagnosis: Acute acalculous cholecystitis Procedure Done: Laparoscopic cholecystectomy Surgeon: Fareed Brooks Complications: none Post-op Plan: In-hospital observation for diabetes/hypertension Condition: stable Coding Level of Care Code Acute Code for Chg Fwd
--- NOTE | 2022-07-19 12:24 | PM.OP ---
Operative Report Date of procedure: July 19, 2022 Pre-op diagnosis: Preop Diagnosis Acalculous cholecystitis Post-op diagnosis: same Post-op findings: Inflammation of peritoneal reflection on gallbladder Procedure done: Laparoscopic cholecystectomy Specimens removed/disposition: Gallbladder Surgeon: Fareed Brooks M.D. Anesthesia: General Estimated blood loss: 25mL IV fluids: Crystalloid 1400mL Complications: None Findings: Cholecystitis in gallbladder wall Condition: stable Brief History: 57 y.o. male with acute onset RUQ abdominal pain and imaging confirmation consistent with acute acalculous cholecystitis Procedure: Risks and benefits explained to patient, who accepts. Assessed prior to induction of anesthesia and felt to be clinically stable. Three-phase WHO checklist used for timeout. Prepped and draped in usual fashion in supine position. Port sites blocked with 1/4 % bupivicaine. Incision in right flank, verress needle inserted. Abdomen insufflated with CO2 to 14mm Hg, 5 mm port placed. Laparoscope inserted, 12 mm periumbilical port and 5mm RUQ ports placed under direct visualization. Attention to RUQ; inflammation on gallbladder wall noted. Infundibulum of gallbladder identified and dissected with blunt dissection. Cystic duct and cystic artery cliipped and divided between 10mm clips under safety view. Gallbladder removed from liver using electrocautery without incident. 15mL 1/4% bupivicaine injected to right subdiaphragmatic space. Gallbladder delivered through umbilical port and passed off as separate specimen. Hemostasis verified. All instruments removed. Skin sites closed with skin ann. Sterile dressings applied. Sponge and needle counts correct x 2. To PACU in stable condition.
[2022-07-19] MEDS: sodium chloride 0.9% 1,000 ML 100 ML IV (15:06)
[2022-07-19 17:16] LABS: Glucose Point of Care 233 mg/dL (70-110)
--- NOTE | 2022-07-19 18:17 | ANE.PACU2 ---
Inpatient post-anesthesia follow up: Airway intact: Yes Vital signs: Temperature 97.6 F Pulse Rate 68 Respiratory Rate 18 Blood Pressure 141/83 Pulse Oximetry 94 Oxygen Delivery Me thod Room Air Oxygen Flow Rate 6 Fraction of Inspir ed Oxygen Hydration adequate: Yes Nausea and vomiting: No Pain level: 3 Mental status: Baseline
[2022-07-19] MEDS: HYDROcodone-acetaminophen 5-325 mg Tablet 1 TAB PO (20:09)
[2022-07-19 21:15] LABS: Glucose Point of Care 304 mg/dL (70-110)
[2022-07-20] VITALS: BP 176/80; PULSE 80; RESP 17; TEMP 37.1; O2SAT 94
[2022-07-20 00:06] LABS: Glucose Point of Care 280 mg/dL (70-110)
[2022-07-20 01:36] LABS: Glucose Point of Care 261 mg/dL (70-110)
[2022-07-20] MEDS: HYDROcodone-acetaminophen 5-325 mg Tablet 1 TAB PO ×2 (01:41→08:26)
[2022-07-20] MEDS: sodium chloride 0.9% 1,000 ML 100 ML IV (01:43)
[2022-07-20] MEDS: insulin lispro 100 unit/1 mL SUBCUT ×3 (01:44→12:34)
[2022-07-20 04:00] VITALS: BP 122/65; PULSE 69; RESP 17; TEMP 36.7; O2SAT 91
[2022-07-20 06:00] VITALS: PULSE 59
[2022-07-20 06:46] LABS: Glucose Point of Care 183 mg/dL (70-110)
[2022-07-20] MEDS: enoxaparin 30 mg/0.3 mL Syringe SUBCUT (06:54)
[2022-07-20] MEDS: piperacillin-tazobactam 3.375 GM in sodium chloride 0.9% (plus) 50 ML IV (06:56)
[2022-07-20 07:46] VITALS: BP 127/66; PULSE 66; RESP 16; TEMP 36.7; O2SAT 93
[2022-07-20] MEDS: metformin XR 500 MG Tablet PO (08:20)
[2022-07-20] MEDS: amlodipine 5 mg Tablet PO (08:20)
[2022-07-20] MEDS: losartan 50 mg Tablet PO (08:20)
--- NOTE | 2022-07-20 09:19 | P.PN_ITS ---
Subjective Subjective: Thanks for taking care of me. I feel great Vitals/I&O/Wt Last Vital Signs Temp 98.1 F 07/20/22 07:46 Pulse 66 07/20/22 07:46 Resp 16 07/20/22 07:46 BP 127/66 07/20/22 07:46 Pulse Ox 93 07/20/22 07:46 O2 Del Method 07/20/22 07:46 O2 Flow Rate 6 07/19/22 12:24 07/19/22 07/20/22 07/20/22 22:59 06:59 14:59 Intake Total 170 / 2220 1050 / 3270 480 / 480 Output Total 1000 / 1000 Balance 170 / 2195 1050 / 3245 -520 / -520 Weight last 48 hrs Weight 220 lb Physical Exam GI: OTHER: Abdomen benign. Dressings in place. Data 07/19/22 03:27 07/19/22 03:27 A&P Assessment and plan (1) Acute cholecystitis without calculus: At this point, patient is ready for discharge from my standpoint, and has been instructed to avoid operating motor vehicle until 07/23, and to resume all activities as of 07/28. He does not require anything more for postoperative pain that Aleve or Advil. He should return to Dr. Ojeda's clinic around 07/28 for clip removal. Attestations Medical Necessity Statement*: Defer to hospitalist service regarding disposition, as his diabetes remains marginally controlled at present. Coding Level of Care Code Acute Code for [facility] Fwd Diagnoses Acute cholecystitis without calculus K81.0
--- NOTE | 2022-07-20 10:49 | PM.DCS ---
Discharge Providers Date of Admission: 07/19/22 12:05 Date of Discharge: July 20, 2022 Attending Provider at Admission: Lowell Bojorquez Attending Provider at Discharge: Gerardo Ovalle MD Diagnoses at Discharge Discharge Diagnosis (1) Acute cholecystitis without calculus: Status: Acute Reason for Visit Reason for Visit: R flank pain Hospital Course Hospital Course Pt admitted on 07/18/22 for RUQ abdominal pain. In ED had elevated blood pressure in 180's/110's with glucose in 300's. Imaging showed abnormal GB with pericholecystic fluid and sludge. Surgical was consulted but held x 24hrs until BP and glucose resolved. Pt was started on losaran and norvasc and BP improved by next morning to the 120's/60. Pts A1c was 9.7, we started metformin 500mg BID and LDSSI. on 07/19/22 pt had successful lap carolyn. Seen by gen cotto on 07/20 and cleared for home. no operation of motor vehicle until 07/23 and can resume all activities on 07/28. He is scheduled to f/u with Dr. Ojeda on 07/28 for clip removal and will follow up with myself to establish care in a PCP setting. Physical Exam Narrative: General: AOx3, no acute distress, well developed, well nourished, appears stated age psych: appropriate mood and affect. good judgment and insight. No suicidal or homicidal ideation. Oropharynx: good dentition, pink moist mucosa, non-deviated tongue, no buccal nodules/lesions. no pharyngeal exudate Neck: FROM, no lymphadenopathy, no tracheal deviation, non tender, thyroid gland normal w/o mass. supple Chest: atraumatic, symmetrical CVD: RRR, normal S1 and S2, no M/R/G. 2+ pulse x 4 extremities, no JVD, no carotid bruit. Lungs: clear lung sounds in all bryant, no rhonchi, wheezing, rales. Abdomen: mild epigastric ttp, ND, soft, NABS. No hepatosplenomegaly, no mass. umbilicus midline w/o herniation Extremities: FROM and 5/5 strength in BUE and BLE. no visible joint abnormalities on active and passive ROM. Neuro: CNII-XII grossly intact. No atrophy, weakness, tremors or clonus.? 2+ DTR, no sensory abnormalities. Skin:? no rash, vesicles, lesions. Discharge Data Studies Completed and Pending Completed Studies During Hospitalization Category Date Time Status XR shoulder LT min 2V* [id number] Routine Exams 07/18/22 08:03 Completed US gall bladder 64808 Stat Ultrasound 07/18/22 02:47 Completed Pending at discharge Category Date Time Status Pathology: Surgical [PTH] Routine Pth 07/19/22 12:02 Ordered Radiology Impressions Gallbladder Ultrasound 07/18/22 02:47 IMPRESSION: Abnormal gallbladder with prominent echogenic bile, pericholecystic fluid, and technologist reported positive sonographic Ac sign. Shoulder X-Ray 07/18/22 08:03 IMPRESSION: No acute abnormality. Osteoarthritis of the acromioclavicular joint. Laboratory Results WBC 11.2 10^3/uL (4.0-10.0) H 07/19/22 03:27 RBC 6.11 10^6/uL (4.1-5.3) H 07/19/22 03:27 Hgb 17.0 g/dL (11.7-16.6) H 07/19/22 03:27 Hct 49.8 % (42.0-52.0) 07/19/22 03:27 MCV 81.5 fl (80-94) 07/19/22 03:27 MCH 27.8 pg (28.0-34.0) L 07/19/22 03:27 MCHC 34.1 g/dL (30.0-36.0) 07/19/22 03:27 RDW 12.8 % (12.1-15.1) 07/19/22 03:27 Plt Count 158 10^3/cmm (130-400) 07/19/22 03:27 MPV 11.5 fL (7.4-10.4) H 07/19/22 03:27 Neut % (Auto) 63.6 % 07/19/22 03:27 Lymph % (Auto) 28.1 % 07/19/22 03:27 [place] % (Auto) 5.2 % 07/19/22 03:27 Eos % (Auto) 2.2 % 07/19/22 03:27 Baso % (Auto) 0.4 % 07/19/22 03:27 Neut # (Auto) 7.13 10^3/uL (1.8-7.7) 07/19/22 03:27 Lymph # (Auto) 3.2 10^3/uL (0.8-4.8) 07/19/22 03:27 [place] # (Auto) 0.6 10^3/uL (0.2-0.9) 07/19/22 03:27 Eos # (Auto) 0.3 10^3/uL (0.0-0.8) 07/19/22 03:27 Baso # (Auto) 0.1 10^3/uL (0.0-0.1) 07/19/22 03:27 Nucleated RBC % (auto) 0 % 07/19/22 03: Nucleated RBCs # 0.0 /100WBC 07/19/22 03:27 Sodium 136 mmol/L (136-145) 07/19/22 03:27 Potassium 3.9 mmol/L (3.5-5.1) 07/19/22 03:27 Chloride 101 mmol/L (98-107) 07/19/22 03:27 Carbon Dioxide 24 mmol/L (22-29) 07/19/22 03:27 Anion Gap 14.9 (5-19) 07/19/22 03:27 BUN 14 mg/dL (6-20) 07/19/22 03:27 Creatinine 1.1 mg/dL (0.7-1.2) 07/19/22 03:27 GFR Calculation 69.0 mL/min (90-130) L 07/19/22 03:27 Glucose 241 mg/dL (65-115) H 07/19/22 03:27 POC Glucose 183 mg/dL (70-110) H 07/20/22 06:39 Estimat Average Glucose 232 07/18/22 03:00 Hemoglobin A1c 9.7 % (4.0-6.0) H 07/18/22 03:00 Calculated Osmolality 290 mOsm/kg (285-295) 07/19/22 03:27 Calcium 8.9 mg/dL (8.5-10.5) 07/19/22 03:27 Total Bilirubin 0.9 mg/dL (0.15-1.2) 07/19/22 03:27 AST 12 U/L (0-40) 07/19/22 03:27 ALT 20 U/L (0-41) 07/19/22 03:27 Alkaline Phosphatase 101 U/L (40-130) 07/19/22 03:27 Total Protein 6.3 g/dL (6.6-8.7) L 07/19/22 03:27 Albumin 3.6 g/dL (3.5-5.2) 07/19/22 03:27 Globulin 2.7 g/dL (1.3-4.6) 07/19/22 03:27 Lipase 27 U/L (13-60) 07/18/22 03:00 Urine Color Yellow (Yellow) 07/18/22 03:49 Urine Appearance Clear (CLEAR) 07/18/22 03:49 Urine pH 6 (5-7) 07/18/22 03:49 Ur Specific [place] 1.015 (1.005-1.030) 07/18/22 03:49 Urine Protein Neg (Negative) 07/18/22 03:49 Urine Glucose (UA) 4+ (Normal) H 07/18/22 03:49 Urine Ketones Negative (Negative) 07/18/22 03:49 Urine Blood Neg (Negative) 07/18/22 03:49 Urine Nitrate Negative (Negative) 07/18/22 03:49 Urine Bilirubin Neg (Negative) 07/18/22 03:49 Urine Urobilinogen Norm mg/dL (Negative) 07/18/22 03:49 Ur Leukocyte Esterase Negative (Negative) 07/18/22 03:49 Vitals Last Vital Signs Temp 98.1 F 07/20/22 07:46 Pulse 66 07/20/22 07:46 Resp 16 07/20/22 07:46 BP 127/66 07/20/22 07:46 Pulse Ox 93 07/20/22 07:46 O2 Del Method 07/20/22 07:46 O2 Flow Rate 6 07/19/22 12:24 Discharge Plan Discharge Patient Disposition: Home Prescriptions: New metformin 500 mg Tablet Extended Release 24 Hr 500 mg PO BID Qty: 30 0RF amlodipine 5 mg Tablet 5 mg PO DAILY Qty: 30 0RF losartan 50 mg Tablet 50 mg PO DAILY Qty: 30 0RF Continued Osteo Bi-Flex 250-200 mg Tablet 2 tab PO TID Rx Instructions: give after food/meal Men's Multivitamin 400-20-300 mcg Tablet 1 tab PO DAILY Discharge Orders: Discharge Order (Routine); Ordered 07/20/22 Ordered By: Gerardo Ovalle Referrals: Gerardo Ovalle MD [Physician] - 07/25/22 8:30 am Discharge Diet: Diabetic Discharge Activity: Limit activity as instructed Patient Instructions: Opioid Safety, Post Anesthesia Care Discharge Attestations Time Spent in Discharge Care*: less than 30 min Quality Metrics Clinical Quality Measures [ No reported AMI, CVA or VTE this stay] Coding Level of Care Code 80087 Diagnoses Acute cholecystitis without calculus K81.0
[2022-07-20 11:56] VITALS: BP 147/74; PULSE 68; RESP 18; TEMP 36.4; O2SAT 95
[2022-07-20 12:09] LABS: Glucose Point of Care 214 mg/dL (70-110)
--- NOTE | 2022-07-20 14:21 | PC.NURSE ---
patient verbalized understanding of discharge instructions, home medications, and follow up appointments. prescriptions for metformin, amlodipine, and losartan called into [facility] pharmacy by this RN.
[2022-07-20 14:26] VITALS: BP 147/74; PULSE 68; RESP 18; TEMP 36.4; O2SAT 95
== END 2022-07-20 13:15 | disposition home or self-care (01) | DRG 419 ==
LOC: ER 04:14 → ER IP 05:45 → MEDSURG 07:48
PROVIDERS: Surgery; Admitting Provider Internal Medicine; Emergency Provider Emergency Medicine; Visit Provider Family Medicine
PROC: 0FT44ZZ Resection of Gallbladder, Percutaneous Endoscopic Approach (ICD-10-PCS; CPT 47562; principal; 2022-07-19 10:25)
DX: K81.0 Acute cholecystitis (principal); I10 Essential (primary) hypertension; F17.210 Nicotine dependence, cigarettes, uncomplicated; K40.91 Unilateral inguinal hernia, without obstruction or gangrene, recurrent; M19.012 Primary osteoarthritis, left shoulder; E11.9 Type 2 diabetes mellitus without complications
CPT/HCPCS: 36415; 36416; 73030; 76705; 80053; 81003; 82962; 83036; 83690; 85025; 88304; 93005; 94664; 96372; 96374; 96375; 99285; G0378; J0131; J0330; J0360; J1100; J1170; J1650; J1815; J2250; J2370; J2405; J2543; J2704; J2710; J3010; J3490; J7030; J7040

== ENCOUNTER 2022-09-08 10:35 | Day surgery (SDC) | payer MEDICAID, SELFPAY ==
[2022-09-05 12:37] VITALS: BMI 29.5
[2022-09-08] VITALS (10 sets, daily range): BP systolic 116–173; BP diastolic 59–99; PULSE 56–80; RESP 14–20; TEMP 36.6–37.2; O2SAT 92–98
[2022-09-08] MEDS: sodium chloride 0.9% 1,000 ML 30 ML IV (10:58)
[2022-09-08 11:06] LABS: Glucose Point of Care 247 mg/dL (70-110)
--- NOTE | 2022-09-08 11:13 | PM.HP ---
Providers/Chief Complaint Primary Care Provider: Gerardo Ovalle MD Chief Complaint: K40.91 History of Present Illness Malachi Ames Jr is a 57 year old male here forLaparoscopic recurrent right inguinal hernia repair with mesh Medications/Allergies Home Medications Medication Instructions Recorded Confirmed Last Taken Type glucosamine-chondroitin 250 mg-200 2 tab PO TID 07/18/22 09/08/22 09/06/22 History mg tablet (Osteo Bi-Flex) rghgbonw-iyvyvopp-ctiyz acid 400 1 tab PO DAILY 07/18/22 09/08/22 09/06/22 History mcg-vit K 20 mcg-lycop 300 mcg tablet amlodipine 5 mg tablet 10 mg PO DAILY #90 tabs 08/01/22 09/08/22 09/08/22 Rx losartan 50 mg tablet 100 mg PO DAILY #90 tabs 08/01/22 09/08/22 09/07/22 Rx metformin 500 mg tablet,extended 1,000 mg PO BID #90 tabs 08/11/22 09/08/22 09/07/22 Rx release 24 hr hydrochlorothiazide 12.5 mg tablet 12.5 mg PO QAM #90 tabs 08/15/22 09/08/22 09/08/22 Rx Allergies Allergy/AdvReac Type Severity Reaction Status Date / Time No Known Allergies Allergy Verified 09/08/22 10:44 PFSH Acute PFSH: Medical History DM type 2 (diabetes mellitus, type 2) Hypertension Recurrent inguinal hernia Tobacco use disorder Surgical History H/O hernia repair History of cholecystectomy Family History Mother Cancer unknown Other Bleeding disorder Lung disease Denies family history of Diabetes CAD (coronary artery disease) Clotting disorder Dementia Hyperlipidemia Psychiatric illness Chronic kidney disease (CKD) Anesthesia complication Hypertension Stroke Social History (Updated 08/15/22 @ 13:32 by Lillian Valencia LPN) Smoking and tobacco status: current every day smoker cigarettes and smokeless tobacco Smokeless tobacco user: chewing tobacco Alcohol intake: current Alcohol intake frequency: holidays/special occasions only Substance/Drug Use: never Lives independently: Yes Household members: significant other Marital status: Number of children: 8 Current occupational status: employed Current occupation: [employer] Current gender identity: Male Special elisa needs: No Agree to transfusion: Yes Vitals/I&O/Wt Last Vital Signs Temp 99.0 F 09/08/22 10:50 Pulse 70 09/08/22 10:50 Resp 18 09/08/22 10:50 BP 162/99 09/08/22 10:50 Pulse Ox 95 09/08/22 10:50 O2 Del Method Room Air 09/08/22 10:50 A&P Assessment and plan (1) Recurrent right inguinal hernia: Plan Laparoscopic recurrent right inguinal hernia repair with mesh Attestations Medical Necessity Statement*: HOME Coding Level of Care Code Acute Code for Chg Fwd Diagnoses Recurrent right inguinal hernia K40.91
[2022-09-08] MEDS: ceFAZolin 2,000 MG in sodium chloride 0.9% (plus) 50 ML 100 MG IV (11:32)
[2022-09-08] MEDS: lidocaine-epi 2% 20 mL INJ INJECTION (12:02)
--- NOTE | 2022-09-08 12:30 | PM.OP ---
Operative Report Date of procedure: September 08, 2022 Pre-op diagnosis: Recurrent right inguinal hernia Post-op diagnosis: other (Recurrent right pantaloon hernia) Procedure done: Laparoscopic repair of recurrent right inguinal hernia with mesh Implants: Extra-large 3D max Bard mesh Specimens removed/disposition: None Surgeon: Dr. King Ojeda DO Anesthesia: General Estimated blood loss (mL): 5 Complications: None apparent Brief History: This is a very pleasant 57-year-old gentleman who presented to my office with a recurrent right inguinal hernia. Laparoscopic repair with mesh was indicated. The risk and benefits were explained and documented. Procedure: Patient was wheeled into the operative room and placed on the OR table in a supine position. Abdomen was inspected prepped and draped in usual sterile fashion. Time-out was performed and all present were in agreement. A 15 blade scalpel was used to make 1.2 centimeter incision infraumbilically. Combination of sharp and blunt dissection was performed down to the anterior rectus sheath which was opened sharply. The dissecting balloon was then inserted into the space of Retzius and blown up. We put the camera into the port and identified that we were in the correct space. I then placed 2 5 millimeter trocars suprapubically in the midline. I then used endokitners to bluntly dissect in the space of Retzius out laterally. Very large recurrent right direct inguinal hernia was identified and a small indirect inguinal hernia was also identified on the right.. Blunt dissection was performed to dissect down the hernia sac until the vas deferens dove medially. An extra-large right inguinal mesh was then placed into the space of Retzius. The mesh was unrolled and tacked once medially at the pubic bone. The mesh laid out nicely over the spermatic cord. I watched the hernia sac remained in place as insufflation was removed. Incisions were closed with 4-0 Monocryl in a subcuticular interrupted fashion. Skin glue was applied. Patient tolerated the procedure well.
--- NOTE | 2022-09-08 12:54 | PC.NURSE ---
oral airway removed at 1253, tolerated well
[2022-09-08] MEDS: oxyCODONE-APAP 5-325 mg Tablet 1 TAB PO (13:40)
--- NOTE | 2022-09-08 13:55 | ANES.PREANE2 ---
Pre-Anesthetic Assessment Height/Weight: Height 1.8 m Weight 96.162 kg Temp Pulse Resp BP Pulse Ox O2 Del Method O2 Flow Rate 97.8 F 72 16 149/78 96 Room Air 6 09/08/22 13:21 09/08/22 13:44 09/08/22 13:44 09/08/22 13:44 09/08/22 13:44 09/08/22 13:44 09/08/22 12:50 Operation Date: 09/08/22 11:55 Proposed Procedures p 72645 lap recurrent right inguinal hernia repair w/mesh K40.91(Right) - DO Gamaliel Murray anesthetic complications: none Was Beta Pieter taken within 24 hours: N/A Was Clonidine taken within 24 hours: N/A Last intake: Intake Last Liquid Date 09/07/22 Last Liquid Time 22:30 Last Solid Date 09/07/22 Last Solid Time 22:30 Social Tobacco and No alcohol Exam alert, oriented x 3 and regular rate & rhythm Airway Submandibular: within normal limits Cervical ROM: within normal limits Mallampati: Class II Dentition: false Pulmonary Chronic Obstructive Pulmonary Disease CV/HEM Hypertension Metabolic Diabetes Mellitus Anesthetic Plan ASA status: 3 Anesthesia: General Medications/Allergies Home Medications Medication Instructions Recorded Confirmed Last Taken Type glucosamine-chondroitin 250 mg-200 2 tab PO TID 07/18/22 09/08/22 09/06/22 History mg tablet (Osteo Bi-Flex) tppwitph-vuzlpqof-dfnuo acid 400 1 tab PO DAILY 07/18/22 09/08/22 09/06/22 History mcg-vit K 20 mcg-lycop 300 mcg tablet amlodipine 5 mg tablet 10 mg PO DAILY #90 tabs 08/01/22 09/08/22 09/08/22 Rx losartan 50 mg tablet 100 mg PO DAILY #90 tabs 08/01/22 09/08/22 09/07/22 Rx metformin 500 mg tablet,extended 1,000 mg PO BID #90 tabs 08/11/22 09/08/22 09/07/22 Rx release 24 hr hydrochlorothiazide 12.5 mg tablet 12.5 mg PO QAM #90 tabs 08/15/22 09/08/22 09/08/22 Rx docusate sodium 100 mg capsule 100 mg PO BID #14 caps 09/08/22 Unknown Rx (DOK) oxycodone-acetaminophen 5 mg-325 1 tab PO Q6H PRN pain #20 tabs 09/08/22 Unknown Rx mg tablet Allergies Allergy/AdvReac Type Severity Reaction Status Date / Time No Known Allergies Allergy Verified 09/08/22 10:44 Current Medications Generic Name Dose Route Start Last Admin Trade Name Freq PRN Reason Stop Dose Admin Sodium Chloride 1,000 mls @ 30 mls/hr 09/08/22 10:45 09/08/22 13:44 Sodium Chloride 0.9% IV 09/09/22 10:44 Infused .Q24H CANDIDO Infusion PFSH Anesthesia Medical History DM type 2 (diabetes mellitus, type 2) Hypertension Recurrent inguinal hernia Tobacco use disorder Surgical History H/O hernia repair History of cholecystectomy Family History Mother Cancer unknown Other Bleeding disorder Lung disease Denies family history of Diabetes CAD (coronary artery disease) Clotting disorder Dementia Hyperlipidemia Psychiatric illness Chronic kidney disease (CKD) Anesthesia complication Hypertension Stroke Social History (Updated 08/15/22 @ 13:32 by Lillian Valencia LPN) Smoking and tobacco status: current every day smoker cigarettes and smokeless tobacco Smokeless tobacco user: chewing tobacco Alcohol intake: current Alcohol intake frequency: holidays/special occasions only Substance/Drug Use: never Lives independently: Yes Household members: significant other Marital status: Number of children: 8 Current occupational status: employed Current occupation: [employer] Current gender identity: Male Special elisa needs: No Agree to transfusion: Yes Data Anesthesia Cardiac Studies: No Data to Display
--- NOTE | 2022-09-08 16:23 | ANE.PACU2 ---
Inpatient post-anesthesia follow up: Airway intact: Yes Vital signs: Temperature 97.8 F Pulse Rate 72 Respiratory Rate 16 Blood Pressure 149/78 Pulse Oximetry 96 Oxygen Delivery Me thod Room Air Oxygen Flow Rate 6 Fraction of Inspir ed Oxygen Hydration adequate: Yes Nausea and vomiting: No Pain level: 3 Mental status: Baseline
[2022-09-09 06:46] LABS: Glucose Point of Care 235 mg/dL (70-110)
== END 2022-09-08 13:55 | disposition home or self-care (01) ==
PROVIDERS: PCP Family Medicine; Visit Provider Surgery
PROC: (CPT 49650; principal; 2022-09-08 11:45)
DX: K40.90 Unilateral inguinal hernia, without obstruction or gangrene, not specified as recurrent (principal); E11.9 Type 2 diabetes mellitus without complications; I10 Essential (primary) hypertension; J44.9 Chronic obstructive pulmonary disease, unspecified; F17.210 Nicotine dependence, cigarettes, uncomplicated; Z79.84 Long term (current) use of oral hypoglycemic drugs; Z79.899 Other long term (current) drug therapy
CPT/HCPCS: 49651; 36416; 82962; C1781; J0330; J0690; J1100; J1170; J2250; J2405; J2704; J2710; J3010; J3490; J7030

== ENCOUNTER → 2022-09-23 11:14 | Outpatient (BNVA) | payer MEDICAID, SELFPAY | PROVIDERS: PCP Family Medicine; Visit Provider Surgery | DX: Z98.890 Other specified postprocedural states (principal); Z87.19 Personal history of other diseases of the digestive system | CPT/HCPCS: 99024 ==

== ENCOUNTER 2022-10-03 14:56 | Outpatient (CLI) | payer MEDICAID, SELFPAY ==
--- NOTE | 2022-10-03 15:00 | CTR_ITS ---
PROCEDURE INFORMATION: Exam: CT Abdomen And Pelvis With Contrast Exam date and time: 10/03/2022 3:20 PM Age: 57 years old Clinical indication: Other: RT ing hernia; Prior surgery; Surgery date: 6+ months; Surgery type: Gb, hernia; Additional info: Right inguinal recurrent hernia vs seroma, iv contrast TECHNIQUE: Imaging protocol: Computed tomography of the abdomen and pelvis with contrast. Radiation optimization: All CT scans at this facility use at least one of these dose optimization techniques: automated exposure control; mA and/or kV adjustment per patient size (includes targeted exams where dose is matched to clinical indication); or iterative reconstruction. Contrast material: OMNI 350; Contrast volume: 100 ml; Contrast route: INTRAVENOUS (IV); REPORTING DATA: Count of CT and Cardiac NM exams in prior 12 months: This patient has received 0 known CTs and 0 known cardiac nuclear medicine studies in the 12 months prior to the current study. COMPARISON: US gall bladder [id number] 07/18/2022 3:10 AM RADIATION DOSE METRICS: Total DLP (mGy-cm): 649.72 FINDINGS: Liver: Normal. No mass. Gallbladder and bile ducts: There has been a cholecystectomy. Pancreas: There is pancreatic calcification. No acute pancreatitis or pseudocyst. Spleen: Normal. No splenomegaly. Adrenal glands: Normal. No mass. Kidneys and ureters: Normal. No hydronephrosis. Stomach and bowel: Colonic diverticula are present although there are no CT findings to suggest diverticulitis. No bowel obstruction or wall thickening. Appendix: The appendix is visualized and appears normal. Intraperitoneal space: Unremarkable. No free air. No significant fluid collection. Vasculature: Unremarkable. No abdominal aortic aneurysm. Lymph nodes: Unremarkable. No enlarged lymph nodes. Urinary bladder: Unremarkable as visualized. Reproductive: Unremarkable as visualized. Bones/joints: Unremarkable. No acute fracture. Soft tissues: There is a right inguinal hernia containing fluid measuring approximately 7.4 x 5.2 cm on coronal image 21. CT/CT abdomen pelvis w con* [id number] IMPRESSION: There is a right inguinal hernia containing fluid.
[2022-10-03] MEDS: iohexol 350 mg/mL 500 mL Btl (per mL) IV (15:53)
== END 2022-10-03 14:57 | disposition home or self-care (01) ==
LOC: RAD 14:56
PROVIDERS: PCP Family Medicine; Visit Provider Surgery
DX: K40.91 Unilateral inguinal hernia, without obstruction or gangrene, recurrent (principal)
CPT/HCPCS: 74177; Q9967

== ENCOUNTER → 2022-10-15 09:02 | Outpatient (BNVA) | payer MEDICAID, SELFPAY | PROVIDERS: PCP Family Medicine; Visit Provider Family Medicine | DX: E11.9 Type 2 diabetes mellitus without complications (principal) | CPT/HCPCS: 80053; 83036 ==

== ENCOUNTER 2023-08-12 09:36 | Inpatient (IN) | payer MEDICAID, SELFPAY ==
[2023-08-12] VITALS (55 sets, daily range): BP systolic 121–238; BP diastolic 70–136; PULSE 52–74; RESP 10–28; TEMP 36.4–36.8; O2SAT 88–98; BMI 31.5
--- NOTE | 2023-08-12 09:38 | ECG_ITS ---
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 Measurements Intervals [place] Rate: 72 P: 102 WI: 183 QRS: 8 QRSD: 90 T: 9 QT: 370 QTc: 406 Interpretive Statements ELECTRONIC ATRIAL PACEMAKER MODERATE VOLTAGE CRITERIA FOR LVH, CONSIDER NORMAL VARIANT [MEETS CRITERIA IN ONE OF: R(aVL), S(V1), R(V5), R(V5/V6)+S(V1)] POSSIBLE SEPTAL MYOCARDIAL INFARCTION , POSSIBLY ACUTE [30 ms Q WAVE IN V1/V2] ST ELEVATION, CONSIDER LATERAL INJURY [MARKED ST ELEVATION W/O NORMALLY INFLECTED T-WAVE IN I/aVL/V5/V6] ACUTE [place] INTERPRETATION BASED ON A DEFAULT AGE OF 40 YEARS Compared to ECG 07/18/2022 02:55:01 Myocardial infarct finding now present ST (T wave) deviation now present Ectopic atrial rhythm no longer present Electronically Signed On 08-12-2023 18:38:58 CDT by Coretta Velez M.D. [id number]
--- NOTE | 2023-08-12 09:44 | XRR_ITS ---
PROCEDURE INFORMATION: Exam: XR Chest Exam date and time: 08/12/2023 11:20 AM Age: 58 years old Clinical indication: Pain; Angina pectoris; Additional info: Stemi TECHNIQUE: Imaging protocol: Radiologic exam of the chest. Views: 1 view. COMPARISON: CT abdomen pelvis w con* [id number] 10/03/2022 3:20 PM FINDINGS: Lungs: Unremarkable. No consolidation or mass. Pleural spaces: Unremarkable. No pleural effusion. No pneumothorax. Heart/Mediastinum: Unremarkable. No cardiomegaly. Bones/joints: Unremarkable. XR/XR chest 1V portable [id number] IMPRESSION: No acute findings.
--- NOTE | 2023-08-12 09:47 | ED_ITS ---
HPI - Chest Pain 2 General: Chief Complaint: Chest Pain Stated Complaint: Chest pains Time Seen by Provider: 08/12/23 09:38 Source: patient Mode of arrival: ambulatory History of Present Illness: 58-year-old male presents emergency room with intermittent chest pain that he had initially began 3 days ago. That episode resolved on its own this morning he was working at a [employer] male and began having chest pain shooting into his left arm and has been persistent. The pain was present when he first woke up and got worse as he worked. On arrival here he has an acute ST elevation [place]. He has no known history of coronary artery disease. When asked he told me he is not diabetic but according to his old records it appears he is diabetic as well as hypertension he does not take any of his medications. He was aware that he was hypertensive. He is a smoker as well. complaint: chest pain Onset (ago): hour(s) Timing of current episode: episodic Prior episodes: Yes Onset: during exertion Pain location: substernal and left chest Pain radiation: left arm Quality: crushing Relieving factors: nothing Exacerbating factors: nothing Associated symptoms: Deny abdominal pain, dyspnea or fever(s) Treatment prior to arrival: none Review of Systems 2 Const: Denies: fever(s) or chills Card: Reports: chest pain Resp: Denies: dyspnea GI: Denies: abdominal pain : Denies: dysuria, urinary frequency or urinary urgency Musc: Denies: neck pain or back pain Skin/Breast: Denies: rash PFSH ED 2 PFSH: Medical History Hypertension Tobacco use disorder DM type 2 (diabetes mellitus, type 2) Recurrent inguinal hernia Surgical History Hx of inguinal hernia repair 09/08/22 lap repair of recurrent right inguinal hernia with mesh- Dr. Ojeda History of cholecystectomy H/O hernia repair Family History Mother Cancer unknown Other Bleeding disorder Lung disease Denies family history of Diabetes CAD (coronary artery disease) Clotting disorder Dementia Hyperlipidemia Psychiatric illness Chronic kidney disease (CKD) Anesthesia complication Hypertension Stroke Social History Smoking and tobacco/nicotine status: current every day tobacco/nicotine user cigarettes and smokeless tobacco Smokeless tobacco user: chewing tobacco Alcohol intake: current Alcohol intake frequency: holidays/special occasions only Substance/Drug Use: never Lives independently: Yes Household members: significant other Marital status: Number of children: 8 Current occupational status: employed Current occupation: [employer] Current gender identity: Male Special elisa needs: No Agree to transfusion: Yes Physical Exam 2 Const: COMMON NORMALS: no acute distress GENERAL APPEARANCE: cooperative and comfortable ORIENTATION/CONSCIOUSNESS: Yes awake, Yes oriented to person, Yes oriented to place and Yes oriented to time HENMT: COMMON NORMALS: normocephalic, atraumatic and hearing grossly normal bilaterally HEAD & SCALP: normocephalic and atraumatic Resp: COMMON NORMALS: normal respiratory effort, No retractions, No use of accessory muscles and clear to auscultation bilaterally AUSCULTATION: clear to auscultation bilaterally Cardio: COMMON NORMALS: regular rate, regular rhythm and No murmurs present (Cardio) RATE: regular rate RHYTHM: regular rhythm GI: COMMON NORMALS: Soft to palpation and No hepatosplenomegaly present A USCULTATION: Yes normoactive bowel sounds PALPATION: Yes Soft to palpation, No Tenderness to palpation present (GI), No Guarding due to palpation present (GI) and Yes No hepatosplenomegaly present Extremity: COMMON NORMALS: normal to inspection, capillary refill normal, no clubbing, cyanosis or edema, no calf tenderness and no pedal edema Neuro: SENSORIUM/ORIENTATION: Yes oriented to person, Yes oriented to place and Yes oriented to time Skin: COMMON NORMALS: no rashes or lesions noted GENERAL SKIN EXAM: no rashes or lesions noted Course 2 Vital Signs: Vital signs: Vital Signs Temperature 97.9 F 08/12/23 09:37 Pulse Rate 74 08/12/23 09:37 Respiratory Rate 18 08/12/23 09:37 Blood Pressure 238/136 08/12/23 09:55 Pulse Oximetry 98 08/12/23 09:37 Oxygen Delivery Me thod Room Air 08/12/23 09:37 MDM - Chest Pain Medical Decision Making EKG shows acute ST elevation V2 through V5 Acute ST elevation OH shortly after patient was brought to the room the room arrived because a STEMI had been called when I seen his EKG. Dr. Stevens concurs and he will be taking patient directly to the Dumping Machine Operator usual medications for STEMI activation have been ordered. Medical Records I reviewed the patient's medical records. Lab Data I reviewed the patient's lab results. 08/12/23 09:49 08/12/23 09:49 Laboratory Results WBC 15.35 10^3/uL (3.29-11.43) H 08/12/23 09:49 RBC 6.58 10^6/uL (3.85-5.65) H 08/12/23 09:49 Hgb 19.00 g/dL (11.27-16.99) H 08/12/23 09:49 Hct 53.0 % (37-53) 08/12/23 09:49 MCV 80.5 fl (82-101) L 08/12/23 09:49 MCH 28.9 pg (27-33) 08/12/23 09:49 MCHC 35.8 g/dL (30-55) 08/12/23 09:49 RDW 12.6 % (12.1-15.1) 08/12/23 09:49 Plt Count 238 10^3/cmm (157-399) 08/12/23 09:49 MPV 10.9 fL (7.4-10.4) H 08/12/23 09:49 Neut % (Auto) 58.8 % 08/12/23 09:49 Lymph % (Auto) 34.1 % 08/12/23 09:49 [place] % (Auto) 4.8 % 08/12/23 09:49 Eos % (Auto) 1.1 % 08/12/23 09:49 Baso % (Auto) 0.5 % 08/12/23 09:49 Neut # (Auto) 9.03 10^3/uL (1.8-7.7) H 08/12/23 09:49 Lymph # (Auto) 5.2 10^3/uL (0.8-4.8) H 08/12/23 09:49 [place] # (Auto) 0.7 10^3/uL (0.2-0.9) 08/12/23 09:49 Eos # (Auto) 0.2 10^3/uL (0.0-0.8) 08/12/23 09:49 Baso # (Auto) 0.1 10^3/uL (0.0-0.1) 08/12/23 09:49 Nucleated RBC % (auto) 0 % 08/12/23 09:49 Nucleated RBCs # 0.0 /100WBC 08/12/23 09:49 Sodium 135 mmol/L (136-145) L 08/12/23 09:49 Potassium 4.5 mmol/L (3.5-5.1) 08/12/23 09:49 Chloride 99 mmol/L (98-107) 08/12/23 09:49 Carbon Dioxide 21 mmol/L (22-29) L 08/12/23 09:49 Anion Gap 19.5 (5-19) H 08/12/23 09:49 BUN 12 mg/dL (6-20) 08/12/23 09:49 Creatinine 1.0 mg/dL (0.7-1.2) 08/12/23 09:49 GFR Calculation 76.7 mL/min (90-130) L 08/12/23 09:49 Glucose 323 mg/dL (65-115) H 08/12/23 09:49 Calculated Osmolality 292 mOsm/kg (285-295) 08/12/23 09:49 Calcium 9.7 mg/dL (8.5-10.5) 08/12/23 09:49 Total Bilirubin 0.8 mg/dL (0.15-1.2) 08/12/23 09:49 AST 18 U/L (0-40) 08/12/23 09:49 ALT 23 U/L (0-41) 08/12/23 09:49 Alkaline Phosphatase 137 U/L (40-130) H 08/12/23 09:49 Troponin T Baseline 51 ng/L (0-15) H 08/12/23 09:49 Total Protein 7.5 g/dL (6.6-8.7) 08/12/23 09:49 Albumin 4.4 g/dL (3.5-5.2) 08/12/23 09:49 Globulin 3.1 g/dL (1.3-4.6) 08/12/23 09:49 All radiology interpretation(s) finalized by discharge Discharge Plan Discharge Admit Provider: Mayank Torres Condition: Stable Coding Level of Care Code ED Principal Technical Specialist for Cyn Cummings
[2023-08-12] MEDS: aspirin 325 mg Tablet PO (09:52)
[2023-08-12] MEDS: clopidogrel 300 mg Tablet 600 MG PO (09:52)
[2023-08-12] MEDS: heparin 5,000 unit/mL INJ 1 mL 4000 UNIT IVP (09:52)
[2023-08-12] MEDS: ondansetron 2 mg/ML SDV 2 mL 4 MG IVP (09:52)
--- NOTE | 2023-08-12 09:52 | P.HP_ITS ---
Providers/Chief Complaint 2 Admitting Physician: Mayank Torres MD Primary Care Provider: Gerardo Ovalle MD Chief Complaint: Chest pains History of Present Illness Malachi Ames Jr is a 58 year old male with past medical history of hypertension, diabetes, smoking who has presented with 2 hours of severe substernal chest pain. He had been having on and off chest pains for the last 3 days however this morning while he was working started having severe substernal chest pain radiating to the jaw. EMS was called and the EKGs showing ST elevations in anterior and lateral leads with reciprocal changes. STEMI alert called. Review of Systems 2 Const: Denies: fever(s) or chills Card: Reports: chest pain Resp: Denies: dyspnea GI: Denies: abdominal pain : Denies: dysuria, urinary frequency or urinary urgency Musc: Denies: neck pain or back pain Skin/Breast: Denies: rash Medications/Allergies Home Medications Medication Instructions Recorded Confirmed Last Taken Type glucosamine-chondroitin 250 mg-200 2 tab PO TID 07/18/22 12/10/22 09/06/22 History mg tablet (Osteo Bi-Flex) paatzbbr-wbogzvmh-ledyi acid 400 1 tab PO DAILY 07/18/22 12/10/22 09/06/22 History mcg-vit K 20 mcg-lycop 300 mcg tablet hydrochlorothiazide 12.5 mg tablet 12.5 mg PO QAM #90 tabs 08/15/22 12/10/22 09/08/22 Rx docusate sodium 100 mg capsule 100 mg PO BID #14 caps 09/08/22 12/10/22 Unknown Rx (DOK) cetirizine 10 mg tablet (Zyrtec) 10 mg PO DAILY PRN allergy 10/15/22 12/10/22 Unknown Rx symptoms #90 tabs fluticasone propionate 50 2 spray intranasal DAILY #16 grams 10/15/22 12/10/22 Unknown Rx mcg/actuation nasal spray,suspension (Flonase Allergy Relief) metformin 500 mg tablet,extended 500 mg PO BID 10/15/22 12/10/22 Unknown History release 24 hr glipizide 5 mg tablet See Rx Instructions PO DAILY #60 10/16/22 12/10/22 Unknown Rx tabs amlodipine 5 mg tablet 10 mg (2 x 5 mg) PO DAILY #90 tabs 10/23/22 12/10/22 Unknown Rx losartan 50 mg tablet 100 mg (2 x 50 mg) PO DAILY #120 10/23/22 12/10/22 Unknown Rx tabs Allergies Allergy/AdvReac Type Severity Reaction Status Date / Time No Known Allergies Allergy Verified 12/10/22 15:49 PFSH Acute 2 PFSH: Medical History Hypertension Tobacco use disorder DM type 2 (diabetes mellitus, type 2) Recurrent inguinal hernia Surgical History Hx of inguinal hernia repair 09/08/22 lap repair of recurrent right inguinal hernia with mesh- Dr. Ojeda History of cholecystectomy H/O hernia repair Family History Mother Cancer unknown Other Bleeding disorder Lung disease Denies family history of Diabetes CAD (coronary artery disease) Clotting disorder Dementia Hyperlipidemia Psychiatric illness Chronic kidney disease (CKD) Anesthesia complication Hypertension Stroke Social History Smoking and tobacco/nicotine status: current every day tobacco/nicotine user cigarettes and smokeless tobacco Smokeless tobacco user: chewing tobacco Alcohol intake: current Alcohol intake frequency: holidays/special occasions only Substance/Drug Use: never Lives independently: Yes Household members: significant other Marital status: Number of children: 8 Current occupational status: employed Current occupation: [employer] Current gender identity: Male Special elisa needs: No Agree to transfusion: Yes Vitals/I&O/Wt Last Vital Signs Temp 97.9 F 08/12/23 09:37 Pulse 74 08/12/23 09:37 Resp 18 08/12/23 09:37 BP 226/123 08/12/23 09:37 Pulse Ox 98 08/12/23 09:37 O2 Del Method Room Air 08/12/23 09:37 Weight last 48 hrs Weight 220 lb Physical Exam 2 Narrative: GENERAL: Patient is alert, awake and oriented x3. [] NECK: No jugular vein distension. [] HEENT: No cyanosis. No icterus. No pallor. [] HEART: Regular S1 and S2. No murmur, rub or gallop. [] LUNGS: Clear to auscultate bilaterally. [] CENTRAL NERVOUS SYSTEM: Grossly nonfocal. [] EXTREMITIES: Lower extremities with 1+ edema bilaterally. Data 08/12/23 09:49 08/12/23 09:49 A&P Assessment and plan (1) STEMI (ST elevation myocardial infarction): (2) Tobacco use disorder: (3) Hypertension: Qualifiers: Hypertension type: primary hypertension Qualified Code(s): I10 - Essential (primary) hypertension (4) DM type 2 (diabetes mellitus, type 2): Qualifiers: Diabetes mellitus complication status: without complication Diabetes mellitus long lines operator insulin use: without long lines operator use Qualified Code(s): E11.9 - Type 2 diabetes mellitus without complications Plan Patient has presented with acuteST elevation NV (ST elevations in anterior and lateral leads). We will proceed with emergent coronary angiogram with PCI. He has been loaded with aspirin and Plavix. Heparin bolus given. We will obtain echocardiogram. Will be sent to ICU post procedure. Attestations 2 Medical Necessity Statement*: Care expected to cross 2 midnights. Patient has presented with acute ST elevation NV and undergoing emergent cardiac catheterization. Coding Level of Care Code Acute Code for [facility] Diagnoses STEMI (ST elevation myocardial infarction) I21.3 Tobacco use disorder F17.200 Primary hypertension I10 Hypertension type: primary hypertension Type 2 diabetes mellitus without complication, without long-term current use of insulin E11.9 Diabetes mellitus complication status: without complication Diabetes mellitus long lines operator insulin use: without long lines operator use
[2023-08-12] MEDS: morphine 4 mg/mL SDV 1 mL IVP (09:53)
[2023-08-12] MEDS: nitroglycerin drip 50 MG/250 ML PREMIX IV (09:53)
--- NOTE | 2023-08-12 09:53 | XACV_ITS ---
Exam Room: 2 Ht: 178 cm Wt: 100 kg BSA: 2.25 m2 Gender: Male : 1965 Any Known Allergies: No known allergies Exam Priority: Routine Indication(s): - Anterior wall ND w/PTCA and stent placement - Acute anterior wall ND Procedure(s): Procedure Description: Diagnostic procedure Procedure Description: PCI procedure Procedure Description: Drug Eluting Coronary Stent Procedure Description: PTCA Procedure Description: Miscellaneous Procedure Description: ACT Procedure Description: Coronary Angiography Diagnostic Cath Status: Emergency Diagnostic Findings * INDICATION: 58 year old male with past medical history of hypertension, diabetes, smoking who has presented with 2 hours of severe substernal chest pain. He had been having on and off chest pains for the last 3 days however this morning while he was working started having severe substernal chest pain radiating to the jaw. EMS was called and the EKGs showing ST elevations in anterior and lateral leads with reciprocal changes. STEMI alert called. * Right Coronary Artery has no significant disease. * Proximal Left Anterior Descending: obstructive 70-80% stenosis, ELIANE: 3 flow. * Mid Left Anterior Descending: total thrombotic occlusion, ELIANE: 0 flow. This is culprit vessel for ST elevation ND. Apical LAD has diffuse disease and is very small caliber almost totally occluded vessel.. * Mid Circumflex: obstructive 80 % stenosis, ELIANE: 3 flow. * Left Main has no disease. * Coronary angiography shows right dominance. PCI Status: Emergency PCI Indication: Immediate PCI for STEMI Interventional Findings * Procedure detail: We engaged left main artery with XB 3.5 guide catheter. IV heparin was administered to maintain anticoagulation. 0.014 run-through guidewire was used to cross the total thrombotic occlusion and was put in distal vessel. We predilated the stenosis with 2.5 x 12 mm semicompliant balloon. This was followed by placement of 3.0 x 38 mm resolute Chatham drug-eluting stent. At this time proximal LAD also demonstrated significant stenosis. We placed overlapping 3.0 x 18 mm resolute Juliana drug-eluting stent in proximal LAD. At this time final angiogram was performed that showed excellent stent expansion and ELIANE-3 flow. We then turned our attention to mid left circumflex artery stenosis. After crossing the stenosis with run-through guidewire, we placed 3.0 x 22 mm resolute [place] drug-eluting stent. Proximal to stent, patient developed haziness concerning for thrombus. We placed an overlapping 3.0 x 18 mm resolute Juliana drug-eluting stent in proximal left circumflex artery. At this time final angiogram showed excellent expansion of Lestreflex artery stents however thrombus forming in LAD stent was noted on this picture. We performed balloon angioplasty of LAD stent that resolved thrombus that was forming. Patient was placed on Aggrastat drip for 4 to 6 hours. Patient left the laboratory engineer in a stable condition. . * Proximal Left Anterior Descendin% stenosis treated with a MDT R JULIANA 3.0X18 BRYCE. 0% residual stenosis, ELIANE: 3 flow. * Mid Left Anterior Descendin% stenosis treated with a AB TREK 2.50X12 RX BALLOON, MDT R JULIANA 3.0X38 BRYCE, and MDT R JULIANA 3.0X18 BRYCE. 0% residual stenosis, ELIANE: 3 flow. * Proximal Circumflex: 70% stenosis treated with a MDT R JULIANA 3.0X18 BRYCE. 0% residual stenosis, ELIANE: 3 flow. * Mid Circumflex: 70% stenosis treated with a MDT R JULIANA 3.0X18 BRYCE, and MDT R JULIANA 3.0X22 BRYCE. 0% residual stenosis, ELIANE: 3 flow. Conclusions 1. Total thrombotic occlusion of mid LAD s/p successful revascularization with 2. 2 stents. Severe stenosis of proximal to mid left circumflex artery s/p successful revascularization with 2 stents. 3. Proximal Left Anterior Descending was treated with a Drug Eluting Stent. 4. Mid Left Anterior Descending was treated with a Balloon, Drug Eluting Stent, and Drug Eluting Stent. 5. Proximal Circumflex was treated with a Drug Eluting Stent. 6. Mid Circumflex was treated with a Drug Eluting Stent, and Drug Eluting Stent. Recommendations * Continue Aggrastat drip for 4 to 6 hours. * Dual antiplatelet therapy with aspirin and Plavix for at least 1 year. * High intensity statin therapy. * Smoking cessation advised. * Outpatient cardiology follow-up in 2 weeks. Interventional RX Recommendation: PCI w/o planned CABG Diagnostic RX Recommendation: PCI w/o planned CABG Anticoagulation: Heparin Pressures Phase:Rest AO : 195 / 119 ( 152 ) @ 11:07:00 AM 211 / 119 ( 156 ) @ 11:08:00 AM 131 / 84 ( 99 ) @ 11:11:00 AM 141 / 95 ( 119 ) @ 11:14:00 AM 110 / 73 ( 91 ) @ 11:17:00 AM 140 / 83 ( 109 ) @ 11:23:00 AM 119 / 77 ( 97 ) @ 11:28:00 AM 142 / 82 ( 108 ) @ 11:32:00 AM 138 / 80 ( 106 ) @ 11:39:00 AM 103 / 63 ( 80 ) @ 11:46:00 AM 167 / 91 ( 124 ) @ 11:49:00 AM 176 / 92 ( 127 ) @ 11:57:00 AM Clinical Evaluation EBL: 5mL-10mL Procedural Details Pre-Procedure Time Out. Identified patient by full name and date of as verbalized by the patient/guarantor. Does the consent match the physician's order: N/A Emergent. Accurate & Complete Informed Consent: N/A Emergent. Inpatient/Outpatient History & Physical on Chart: N/A Emergent. If H&P is completed, is and addenduem needed: N/A Emergent; If yes, is the addendum complete: N/A Emergent. Visualize and Verify Site with Patient/Guarantor: N/A. Relevant Radiology Images available: N/A Emergent. Pre-op teaching completed and patient verbalized understanding. The risks, benefits, and alternatives of sedation and/or procedure were discussed by physician. The patient agrees to continue. Procedure started. [facility] Clinical Fraility Score: 4: Vulnerable. Television Host Indications: ACS <= 24 hours. Chest Pain Symptom Assessment: Typical Angina Symptoms. Cardiovascular Instability: Yes, if yes, Persistant Ischemic Symptoms. Current diagnosis: STEMI. PERRLA. 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 Lungs clear x 5 lobes. IV Site on Arrival: 18 gauge in the right anticubital. IV Site on Arrival: 20 gauge in the left anticubital. IV Fluids: 0.9% NaCl at KVO. 0 mL infused prior to laboratory engineer. Oxygen started at 2liters/min via nasal canula. bilateral groins was prepped with chloroprep then draped in the usual sterile fashion. Physician arrived. Current Diagnosis : STEMI. Physician scrubbed in. Immediate Pre-Procedure Time Out. Correct Patient: N/A Emergent; Correct Procedure: N/A Emergent; Correct Site: N/A Emergent; Correct Patient Position: N/A Emergent; Correct Supplies: N/A Emergent; Dried Flammable Prep: N/A Emergent; Blood Products Available: N/A Emergent;. Lidocaine 1% infiltrated to the left groin. The patient arrived to the [facility] with nitro running at 10mcg/min. Arterial access obtained with micropuncture set. 6 zimbabwean XB 3.5 guide catheter was inserted over the wire. Runthrough guidewire was advanced through the guide catheter to lesion in the mid LAD. Inflation number : 1 A AB TREK 2.50X12 RX BALLOON was prepped and advanced across the Mid LAD , then inflated to 8 CHERYL for 0:10 seconds. Inflation number: 2 The AB TREK 2.50X12 RX BALLOON was reinflated across the Mid LAD, to 8 CHERYL for 0:08 seconds. Inflation number: 3 The AB TREK 2.50X12 RX BALLOON was reinflated across the Mid LAD, to 8 CHERYL for 0:10 seconds. Balloon out. Results checked. AP Pads placed on patient. CPR initiated. 2.0x25mm Balloon inserted to lesion in the mid LAD. Balloon out. Inflation Number : 4 A LYNNETTE Baxter JULIANA 3.0X38 BRYCE -Lot Number# _[id number] EXP: 08/29/2023 was prepped and advanced across the Mid LAD. The stent was deployed at 12 CHERYL for 0:16 seconds. Stent balloon out over wire. Results checked. PCI Indication: STEMI. Inflation Number : 1 A MDT R JULIANA 3.0X18 BRYCE -Lot Number# _[id number]_ EXP: 03/31/2025 was prepped and advanced across the Prox LAD. The stent was deployed at 12 CHERYL for 0:18 seconds. Stent balloon out over wire. PCI Indication : Immediate PCI for STEMI. Results checked. Wire out. Guide catheter out. ACT drawn. Results 251 seconds. Therapeutic limits - pre-heparin administration 90-150 seconds and monitoring heparin during a vascular procedure >250 seconds. A 5 zimbabwean JR4 catheter in over wire. Multiple views taken of right coronary artery. Catheter removed over the standard wire. 6 zimbabwean XB 3.5 guide catheter was inserted over the wire. Runthrough guidewire was advanced through the guide catheter to lesion in the mid Circ. A second Runthrough guidewire was advanced through the guide catheter to lesion in the mid Circ. Inflation number: 1 The stent balloon was then re-inflated across the Mid CX to 12 CHERYL for 0:13 seconds. Stent balloon out over wire. The first wire out. Inflation Number : 2 A MDT R JULIANA 3.0X22 BRYCE -Lot Number# _[id number]_ EXP: 02/11/2025 was prepped and advanced across the Mid CX. The stent was deployed at 12 CHERYL for 0:16 seconds. Stent balloon out over wire. Results checked. ACT drawn. Results out of range high seconds. Therapeutic limits - pre-heparin administration 90-150 seconds and monitoring heparin during a vascular procedure >250 seconds. Inflation Number : 1 A MDT R JULIANA 3.0X18 BRYCE -Lot Number# _[id number]_ EXP: 06/04/2024 was prepped and advanced across the Prox CX. The stent was deployed at 12 CHERYL for 0:18 seconds. Patient's family updated. Stent balloon out over wire. Results checked. Wire redirected to the LAD. Inflation number: 5 The stent balloon was then re-inflated across the Mid LAD to 16 CHERYL for 0:14 seconds. Inflation number: 6 The stent balloon was then re-inflated across the Mid LAD to 12 CHERYL for 0:10 seconds. Balloon out. Wire out. Guide catheter out. ACT drawn. Results 353 seconds. Therapeutic limits - pre-heparin administration 90-150 seconds and monitoring heparin during a vascular procedure >250 seconds. A Left femoral angiogram was performed to determine safe placement of closure device. A Suture was successful obtaining hemostatsis at the Left Femoral artery insertion site. Arterial sheath flushed and connected to tranducer and pressure bag with heparinized saline. Post Procedure: Pulses reassessed and unchanged. PERRLA. 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 No VTE prophylaxis required. Total IV fluids: 200 mL. Post-op diagnosis: CAD. Complications: None. Estimated blood loss: 5mL-10mL. Responsiveness - Normal response to verbal stimuli; alert and oriented, PERRLA. Airway - Unaffected, no intervention required; spontaneous ventilation. Circulation: W/N/L, pulses unchanged. Nausea/Vomiting: No. Procedure completed. Patient transferred by bed to ICU. Vital chart was stopped. Access Site Site: Left Femoral artery Sheath Size: 6 Fr Hemostasis Method: Suture Hemostasis Success: Successful Procedure Medications Start: 10:01 AM Stop: 10:01 AM Medication: Versed Amount: 1 mg Route: I.V. Start: 10:03 AM Stop: 10:03 AM Medication: Fentanyl Amount: 50 mcg Route: I.V. Start: 10:05 AM Stop: 10:05 AM Medication: Fentanyl Amount: 25 mcg Route: I.V. Start: 10:07 AM Stop: 10:07 AM Medication: Hydralazine Amount: 10 mg Route: I.V. Start: 10:08 AM Stop: 10:08 AM Medication: Heparin Amount: 6000 units Route: I.V. Start: 10:14 AM Stop: 10:14 AM Medication: Amiodarone (Cordarone) Amount: 150 mg Route: I.V. bolus Start: 10:30 AM Stop: 10:30 AM Medication: Heparin Amount: 2000 units Route: I.V. Start: 10:41 AM Stop: 10:41 AM Medication: Heparin Amount: 1000 units Route: I.V. Start: 10:46 AM Stop: 10:46 AM Medication: Amiodarone (Cordarone) Amount: 1 mg/hr Route: I.V. drip Start: 10:53 AM Stop: 10:53 AM Medication: Aggrastat 12.5 mg/250 mL Amount: 50 ml Route: I.V. bolus Start: 10:53 AM Stop: 10:53 AM Medication: Aggrastat 12.5 mg/250 mL Amount: 18 ml/hr Route: I.V. lilian Cruz, the attending physician, have reviewed and verified all procedure medications. Yes, all medications given per verbal order History/Risk Factors Hypertension: Yes Dyslipidemia: No Peripheral Arterial Disease (PAD): No Myocardial Infarction (ND): No Obesity: No Renal Disease: No Tobacco Use: Current/Recent(w/in 1 year) Prior Interventions PCI: No CABG: No Valve Surgery: No Report Signatures Finalized by Mayank Torres MD on 08/16/2023 09:27 PM
[2023-08-12 10:04] LABS: Basophils # 0.1 10^3/uL (0.0-0.1); Basophils % 0.5 %; Eosinophils # 0.2 10^3/uL (0.0-0.8); Eosinophils % 1.1 %; Lymphocytes # 5.2 10^3/uL (0.8-4.8); Lymphocytes % 34.1 %; Mean Corpuscular HGB Conc 35.8 g/dL (30-55); Mean Corpuscular Hemoglobin 28.9 pg (27-33); Mean Corpuscular Volume 80.5 fl (82-101); Mean Platelet Volume 10.9 fL (7.4-10.4); Monocytes # 0.7 10^3/uL (0.2-0.9); Monocytes % 4.8 %; Neutrophils # 9.03 10^3/uL (1.8-7.7); Neutrophils % 58.8 %; Nucleated Red Blood Cells % 0 %; Platelet Count 238 10^3/cmm (157-399); Red Blood Count 6.58 10^6/uL (3.85-5.65); Red Cell Distribution Width 12.6 % (12.1-15.1); White Blood Count 15.35 10^3/uL (3.29-11.43)
[2023-08-12 10:20] LABS: Alanine Aminotransferase 23 U/L (0-41); Albumin Level 4.4 g/dL (3.5-5.2); Alkaline Phosphatase 137 U/L (40-130); Anion Gap 19.5 (5-19); Aspartate Amino Transferase 18 U/L (0-40); Blood Urea Nitrogen 12 mg/dL (6-20); Calcium 9.7 mg/dL (8.5-10.5); Carbon Dioxide 21 mmol/L (22-29); Chloride 99 mmol/L (98-107); Creatinine Clr Calc Pharmacy 95.3432; Globulin 3.1 g/dL (1.3-4.6); Glomerular Filtration Rate 76.7 mL/min (90-130); Glucose 323 mg/dL (65-115); Osmolality Calculated 292 mOsm/kg (285-295); Potassium 4.5 mmol/L (3.5-5.1); Sodium 135 mmol/L (136-145); Total Bilirubin 0.8 mg/dL (0.15-1.2); Total Protein 7.5 g/dL (6.6-8.7)
[2023-08-12 10:24] LABS: Troponin(5th) Baseline 51 ng/L (0-15)
--- NOTE | 2023-08-12 11:44 | ECG_ITS ---
[facility] Test Date: 2023-08-12 Pat Name: Malachi Ames Department: Room: ICU01 Gender: Male Support Teacher: : 1965 Requested By: Jesus Phillips Order Number: [id number] Reading MD: Coretta Velez M.D. Measurements Intervals [place] Rate: 61 P: 52 PA: 174 QRS: -6 QRSD: 99 T: 79 QT: 389 QTc: 393 Interpretive Statements SINUS RHYTHM SEPTAL MYOCARDIAL INFARCTION , PROBABLY OLD [40+ ms Q WAVE IN V1/V2] ST DEPRESSION, CONSIDER SUBENDOCARDIAL INJURY [0.1+ mV ST DEPRESSION] Compared to ECG 08/12/2023 09:38:54 Atrial-paced complex(es) or rhythm no longer present Myocardial infarct finding still present ST (T wave) deviation still present Electronically Signed On 08-12-2023 18:46:03 CDT by Coretta Velez M.D. [id number]
--- NOTE | 2023-08-12 12:57 | USCV_ITS ---
Malachi Ames Age: 58 Gender: M : 1965 Exam Date: 08/12/2023 18:19 Ordering Phys: Mayank Torres M.D ([email or web address]) Technologist: CT Exam Location: [facility] Indication: STEMI BP: 141 / 79 HR: 51 Rhythm: Sinus Technical Quality: Adequate MEASUREMENTS (Male / Female) Normal Values 2D ECHO LVOT Diameter 2.0 cm LV Ejection Fraction MOD 2C 69.2 % LV Ejection Fraction 2C AL 53.7 % LA Diameter 4.1 cm RA Systolic Volume 4C AL 64.0 ml RA Systolic Volume 4C MOD 58.5 ml LA Sys Volume AL 65.3 cm cubed Aorta at Sinotubular Diameter 2.5 cm IVC Diameter 1.8 cm M-MODE LA Ao Ratio MM 1.5 AV Cusp Separation MM 2.3 cm DOPPLER AV Peak Velocity 169.0 cm/s LVOT Peak Velocity 152.0 cm/s AV Area Cont Eq vti 3.3 cm squared AV Area Cont Eq pk 3.0 cm squared MV Peak Velocity 65.0 cm/s MV Area PHT 2.9 cm squared Mitral E to A Ratio 1.2 TV Peak Velocity 149.0 cm/s TR Peak Velocity 168.0 cm/s TR Peak Gradient 11.3 mmHg TV Peak E Velocity 85.0 cm/s Right Atrial Pressure 3.0 mmHg Pulmonary Artery Systolic Pressu 14.3 mmHg PV Peak Velocity 96.5 cm/s FINDINGS Left Ventricle Left ventricle is normal in size. LV systolic function is mildly reduced with EF of 45 to 50%. Moderate hypokinesis of apical wall. Mild hypokinesis of anterior and anterolateral ortiz. Right Ventricle Normal in size and function Right Atrium Normal in size Left Atrium Normal in size Mitral Valve Structurally normal mitral valve. Trace mitral regurgitation. Aortic Valve Structurally normal aortic valve. No significant stenosis or regurgitation. Tricuspid Valve Mild tricuspid regurgitation. Insufficient TR jet to evaluate RVSP. Pulmonic Valve Not well visualized Pericardium Normal Aorta Normal in size IVC Appears to be normal CONCLUSIONS LV systolic function is mildly reduced with EF of 45-50%. Above mentioned regional wall motion abnormalities Trace mitral regurgitation Mild tricuspid regurgitation. No comparison studies are available. Mayank Torres MD (Electronically Signed) Final Date: 13 August 2023 16:56 S
[2023-08-12] MEDS: losartan 50 mg Tablet PO (13:10)
--- NOTE | 2023-08-12 13:47 | PC.NURSE ---
REceived patient from agriculture laboratory technician staff sat approximately 1130. Patient is alert and oriented to person, place, time, and situation. BP: 164/89, HR: 62, RR: 18, Temp: 97.2, SPO2: 95% on room air. Sheath present in left groin attached to pressure bag. No hematoma or external bleeding present. pulses strong in all four limbs. Patient educated on need to lay flat/not bend at the waist until 6 hours after sheath is removed.
[2023-08-12 15:36] LABS: Troponin 5 2HR 542.9 ng/L (0-15); Troponin 5 2HR Delta 491.9 ABS# (0-10)
--- NOTE | 2023-08-12 15:44 | ECG_ITS ---
[facility] Test Date: 2023-08-12 Pat Name: Malachi Ames Department: Room: ICU01 Gender: Male Director [employer]: : 1965 Requested By: Jesus Phillips Order Number: [id number] Ally MD: Coretta Velez M.D. Measurements Intervals [place] Rate: 62 P: 51 HI: 177 QRS: 16 QRSD: 101 T: 84 QT: 427 QTc: 436 Interpretive Statements SINUS RHYTHM SEPTAL MYOCARDIAL INFARCTION , OF INDETERMINATE AGE [40+ ms Q WAVE IN V1/V2] MODERATE T-WAVE ABNORMALITY, CONSIDER LATERAL ISCHEMIA [-0.1+ mV T-WAVE IN I/aVL/V5/V6] Compared to ECG 08/12/2023 12:01:45 T-wave abnormality now present Possible ischemia now present ST (T wave) deviation no longer present Myocardial infarct finding still present Electronically Signed On 08-12-2023 18:49:16 CDT by Coretta Velez M.D. [id number]
--- NOTE | 2023-08-12 16:40 | PC.NURSE ---
Addendum entered by Nelson Diaz RN 08/12/23 20:16: PTT is 30. Pulled Sheath with the assistance of another nurse Mignon Schultz starting at 1653. Sheath pull was uneventful. No external blood loss. Pressure held for 30 minutes. Hematoma approximately 1 inch in diameter formed distal to the sheath site, but it was dispersed with pressure. No hemtaoma currently palpable. Original Note: PTT is 30. Pulled Sheath with the assistance of another nurse Mignon Schultz starting at 1353. Sheath pull was uneventful. No external blood loss. Pressure held for 30 minutes. Hematoma approximately 1 inch in diameter formed distal to the sheath site, but it was dispersed with pressure. No hemtaoma currently palpable.
[2023-08-12] MEDS: metoprolol tartrate 25 mg Tablet PO (16:49)
[2023-08-12 17:26] LABS: Troponin 5 6HR 810.9 ng/L (0-15); Troponin 5 6HR Delta 759.9 ng/L (0-12)
--- NOTE | 2023-08-12 19:37 | PC.NURSE ---
Shift SUmmary: Uneventful shift. SHeath pulled after PTT was 30. THough 1 inch diameter hematoma formed during sheath pull, it has dispersed with no detectable hematoma present upon shift change. Sheath was pulled at 1630. Vitals within normal limits except BP which has been high, started on metoprolol.
[2023-08-12] MEDS: atorvastatin 40 mg Tablet 80 MG PO (20:28)
[2023-08-12] MEDS: sodium chloride 0.9% 1,000 ML 100 ML IV (20:28)
[2023-08-13] VITALS (87 sets, daily range): BP systolic 106–168; BP diastolic 59–92; PULSE 55–83; RESP 6–32; TEMP 36.6–37.2; O2SAT 87–96; BMI 29.9
[2023-08-13 04:00] LABS: Basophils # 0.1 10^3/uL (0.0-0.1); Basophils % 0.3 %; Eosinophils # 0.1 10^3/uL (0.0-0.8); Eosinophils % 0.7 %; Hematocrit 46.1 % (37-53); Lymphocytes # 2.1 10^3/uL (0.8-4.8); Lymphocytes % 13.9 %; Mean Corpuscular HGB Conc 35.1 g/dL (30-55); Mean Corpuscular Hemoglobin 28.8 pg (27-33); Mean Platelet Volume 11.3 fL (7.4-10.4); Monocytes # 0.7 10^3/uL (0.2-0.9); Monocytes % 4.8 %; Neutrophils # 11.98 10^3/uL (1.8-7.7); Neutrophils % 79.8 %; Nucleated Red Blood Cells % 0 %; Platelet Count 180 10^3/cmm (157-399); Red Blood Count 5.62 10^6/uL (3.85-5.65); Red Cell Distribution Width 12.8 % (12.1-15.1)
[2023-08-13 04:25] LABS: Anion Gap 13.9 (5-19); Blood Urea Nitrogen 13 mg/dL (6-20); Carbon Dioxide 22 mmol/L (22-29); Chloride 105 mmol/L (98-107); Creatinine Clr Calc Pharmacy 93.0705; Glomerular Filtration Rate 76.7 mL/min (90-130); Glucose 293 mg/dL (65-115); Osmolality Calculated 295 mOsm/kg (285-295); Potassium 3.9 mmol/L (3.5-5.1); Sodium 137 mmol/L (136-145)
[2023-08-13 06:53] LABS: Chol HDL Ratio 5.11 mg/dL (1.0-5.00); Cholesterol 189 mg/dL (0-200); HDL Cholesterol 37 mg/dL (60-100); LDL Cholesterol Calculated 112 mg/dL (50-129); LDL HDL Ratio 3.03 RATIO (0.00-3.22); Triglycerides 201 mg/dL (0-150)
[2023-08-13 07:12] LABS: Estmated Average Glucose 214; Hemoglobin A1C 9.1 % (4.0-6.0)
--- NOTE | 2023-08-13 08:03 | PC.PHAR ---
PT STS HE DOESN'T TAKE ANY HOME MEDICATIONS- STS HE HASN'T TAKEN ANY MEDICATIONS FOR 2-3 MONTHS, HAS SCRIPTS BUT HAS NOT FILLED THEM
[2023-08-13] MEDS: aspirin 81 mg EC Tablet PO (08:57)
[2023-08-13] MEDS: metoprolol tartrate 25 mg Tablet PO ×2 (08:59→19:55)
[2023-08-13] MEDS: losartan 50 mg Tablet PO (09:00)
[2023-08-13] MEDS: clopidogrel 75 mg Tablet PO (09:00)
--- NOTE | 2023-08-13 09:12 | PM.PN ---
Subjective Subjective: Patient had total thrombotic occlusion of mid LAD and underwent successful revascularization with 2 stents. Also had severe circumflex artery stenosis and underwent successful revascularization with 2 stents. He is chest pain-free. Vitals/I&O/Wt Last Vital Signs Temp 97.9 F 08/13/23 05:00 Pulse 68 08/13/23 08:57 Resp 22 H 08/13/23 05:00 BP 153/86 08/13/23 05:00 Pulse Ox 90 08/13/23 08:57 O2 Del Method Room Air 08/13/23 08:57 08/12/23 08/13/23 08/13/23 22:59 06:59 14:59 Intake Total 400 / 400 191.983 / 293.767 9819.455 / 1054.455 Output Total 1100 / 1400 Balance -700 / -1000 191.983 / -892.645 6121.455 / 1054.455 Weight last 48 hrs Weight 209 lb Weight 209 lb Weight 220 lb Physical Exam Narrative: GENERAL: Patient is alert, awake and oriented x3. [] NECK: No jugular vein distension. [] HEENT: No cyanosis. No icterus. No pallor. [] HEART: Regular S1 and S2. No murmur, rub or gallop. [] LUNGS: Clear to auscultate bilaterally. [] CENTRAL NERVOUS SYSTEM: Grossly nonfocal. [] EXTREMITIES: Lower extremities with 1+ edema bilaterally. Data 08/14/23 03:27 08/14/23 03:27 A&P Assessment and plan (1) STEMI (ST elevation myocardial infarction): (2) Tobacco use disorder: (3) Hypertension: Qualifiers: Hypertension type: primary hypertension Qualified Code(s): I10 - Essential (primary) hypertension (4) DM type 2 (diabetes mellitus, type 2): Qualifiers: Diabetes mellitus residential insulin use: without residential use Diabetes mellitus complication status: without complication Qualified Code(s): E11.9 - Type 2 diabetes mellitus without complications Plan Patient had PCI of LAD and left circumflex artery yesterday. Continue aspirin and Plavix for at least 1 year. High intensity statin therapy. We will uptitrate beta-lyudmila and losartan doses He has diabetes. Not taking anymore current medications. Will follow-up with PCP to initiate diabetes therapy. Echo shows mildly reduced LV systolic function. Possible discharge tomorrow. Attestations Medical Necessity Statement*: Care expected to cross [address] Patient had acute ST elevation DE underwent successful revascularization of her LAD and left circumflex artery. Possible discharge tomorrow. Coding Level of Care Code Acute Code for [facility] Fwd Diagnoses STEMI (ST elevation myocardial infarction) I21.3 Tobacco use disorder F17.200 Primary hypertension I10 Hypertension type: primary hypertension Type 2 diabetes mellitus without complication, without long-term current use of insulin E11.9 Diabetes mellitus intermediate manager insulin use: without intermediate manager use Diabetes mellitus complication status: without complication
[2023-08-13] MEDS: atorvastatin 40 mg Tablet 80 MG PO (19:54)
[2023-08-14] VITALS: BP 139/79; PULSE 58; RESP 16; TEMP 36.6; O2SAT 95
[2023-08-14 03:59] LABS: Basophils % 0.3 %; Eosinophils # 0.1 10^3/uL (0.0-0.8); Eosinophils % 1.2 %; Hematocrit 43.2 % (37-53); Lymphocytes # 2.6 10^3/uL (0.8-4.8); Lymphocytes % 21.6 %; Mean Corpuscular Hemoglobin 28.8 pg (27-33); Mean Corpuscular Volume 82.4 fl (82-101); Mean Platelet Volume 11.2 fL (7.4-10.4); Monocytes # 0.7 10^3/uL (0.2-0.9); Monocytes % 5.6 %; Neutrophils # 8.48 10^3/uL (1.8-7.7); Neutrophils % 70.9 %; Nucleated Red Blood Cells % 0 %; Platelet Count 152 10^3/cmm (157-399); Red Blood Count 5.24 10^6/uL (3.85-5.65); Red Cell Distribution Width 12.7 % (12.1-15.1); White Blood Count 11.97 10^3/uL (3.29-11.43)
[2023-08-14 04:00] VITALS: BP 133/67; PULSE 72; RESP 18; TEMP 36.5; O2SAT 96
[2023-08-14 04:27] LABS: Anion Gap 12.6 (5-19); Blood Urea Nitrogen 20 mg/dL (6-20); Calcium 8.9 mg/dL (8.5-10.5); Carbon Dioxide 22 mmol/L (22-29); Chloride 103 mmol/L (98-107); Creatinine Clr Calc Pharmacy 93.0705; Glomerular Filtration Rate 76.7 mL/min (90-130); Glucose 291 mg/dL (65-115); Osmolality Calculated 291 mOsm/kg (285-295); Potassium 3.6 mmol/L (3.5-5.1); Sodium 134 mmol/L (136-145)
--- NOTE | 2023-08-14 05:02 | PC.NURSE ---
This RN agrees with all documentations and administrations made by SN Mirella for this patient.
[2023-08-14 05:24] VITALS: PULSE 65
--- NOTE | 2023-08-14 07:20 | PM.DCS ---
Discharge Providers Date of Admission: 08/12/23 11:25 Date of Discharge: August 14, 2023 Attending Provider at Admission: Mayank Torres M.D Attending Provider at Discharge: Mayank Torres M.D Primary Care Provider: Gerardo Ovalle MD Diagnoses at Discharge Discharge Diagnosis (1) STEMI (ST elevation myocardial infarction): Status: Inactive (2) Tobacco use disorder: Status: Acute (3) Hypertension: Status: Acute Qualifiers: Hypertension type: primary hypertension Qualified Code(s): I10 - Essential (primary) hypertension (4) DM type 2 (diabetes mellitus, type 2): Status: Acute Qualifiers: Diabetes mellitus complication status: without complication Diabetes mellitus [facility] insulin use: without [facility] use Qualified Code(s): E11.9 - Type 2 diabetes mellitus without complications Reason for Visit Reason for Visit: Chest pains Brief History: 58 year old male with past medical history of hypertension, diabetes, smoking who has presented with 2 hours of severe substernal chest pain. He had been having on and off chest pains for the last 3 days however this morning while he was working started having severe substernal chest pain radiating to the jaw. EMS was called and the EKGs showing ST elevations in anterior and lateral leads with reciprocal changes. STEMI alert called. Hospital Course Hospital Course Patient was found to have total thrombotic occlusion of mid LAD and severe stenosis of proximal LAD. Underwent successful revascularization with 2 stents. Apical LAD has diffuse disease. He also had successful revascularization of proximal to mid left circumflex artery with 2 stents. His LV systolic function was mildly reduced on echo. Patient has type 2 diabetes with HbA1c of 9.1 however is not on any medications. He will have follow-up visit with primary care physician next week for initiation of diabetes medications. Patient stated chest pain-free in the hospital and was discharged home on dual antiplatelet therapy, high intensity statin therapy, metoprolol and losartan in a stable condition. Physical Exam Narrative: GENERAL: Patient is alert, awake and oriented x3. [] NECK: No jugular vein distension. [] HEENT: No cyanosis. No icterus. No pallor. [] HEART: Regular S1 and S2. No murmur, rub or gallop. [] LUNGS: Clear to auscultate bilaterally. [] CENTRAL NERVOUS SYSTEM: Grossly nonfocal. [] EXTREMITIES: Lower extremities with 1+ edema bilaterally. Discharge Data Studies Completed and Pending Completed Studies During Hospitalization Category Date Time Status XR chest 1V portable [id number] Stat Exams 08/12/23 09:44 Completed CV. echo complete* [id number] Routine Ultrasound 08/12/23 12:57 Completed Pending at discharge Category Date Time Status SUPERINTENDENT LAUNDRY request for service Stat Exams 08/12/23 09:53 Taken Basic Metabolic Panel AM LABS Lab 08/15/23 04:00 Ordered Complete Blood Count w/Auto AM LABS Lab 08/15/23 04:00 Ordered Radiology Impressions Chest X-Ray 08/12/23 09:44 IMPRESSION: No acute findings. Laboratory Results WBC 11.97 10^3/uL (3.29-11.43) H 08/14/23 03:27 RBC 5.24 10^6/uL (3.85-5.65) 08/14/23 03:27 Hgb 15.10 g/dL (11.27-16.99) 08/14/23 03:27 Hct 43.2 % (37-53) 08/14/23 03:27 MCV 82.4 fl (82-101) 08/14/23 03:27 MCH 28.8 pg (27-33) 08/14/23 03:27 MCHC 35.0 g/dL (30-55) 08/14/23 03:27 RDW 12.7 % (12.1-15.1) 08/14/23 03:27 Plt Count 152 10^3/cmm (157-399) L 08/14/23 03:27 MPV 11.2 fL (7.4-10.4) H 08/14/23 03:27 Neut % (Auto) 70.9 % 08/14/23 03:27 Lymph % (Auto) 21.6 % 08/14/23 03:27 [place] % (Auto) 5.6 % 08/14/23 03:27 Eos % (Auto) 1.2 % 08/14/23 03:27 Baso % (Auto) 0.3 % 08/14/23 03:27 Neut # (Auto) 8.48 10^3/uL (1.8-7.7) H 08/14/23 03:27 Lymph # (Auto) 2.6 10^3/uL (0.8-4.8) 08/14/23 03:27 [place] # (Auto) 0.7 10^3/uL (0.2-0.9) 08/14/23 03:27 Eos # (Auto) 0.1 10^3/uL (0.0-0.8) 08/14/23 03:27 Baso # (Auto) 0.0 10^3/uL (0.0-0.1) 08/14/23 03:27 Nucleated RBC % (auto) 0 % 08/14/23 03:27 Nucleated RBCs # 0.0 /100WBC 08/14/23 03:27 APTT 30.0 SECONDS (23.9-36.7) 08/12/23 14:04 Sodium 134 mmol/L (136-145) L 08/14/23 03:27 Potassium 3.6 mmol/L (3.5-5.1) 08/14/23 03:27 Chloride 103 mmol/L (98-107) 08/14/23 03:27 Carbon Dioxide 22 mmol/L (22-29) 08/14/23 03:27 Anion Gap 12.6 (5-19) 08/14/23 03:27 BUN 20 mg/dL (6-20) 08/14/23 03:27 Creatinine 1.0 mg/dL (0.7-1.2) 08/14/23 03:27 GFR Calculation 76.7 mL/min (90-130) L 08/14/23 03:27 Glucose 291 mg/dL (65-115) H 08/14/23 03:27 Estimat Average Glucose 214 08/13/23 03:07 Hemoglobin A1c 9.1 % (4.0-6.0) H 08/13/23 03:07 Calculated Osmolality 291 mOsm/kg (285-295) 08/14/23 03:27 Calcium 8.9 mg/dL (8.5-10.5) 08/14/23 03:27 Total Bilirubin 0.8 mg/dL (0.15-1.2) 08/12/23 09:49 AST 18 U/L (0-40) 08/12/23 09:49 ALT 23 U/L (0-41) 08/12/23 09:49 Alkaline Phosphatase 137 U/L (40-130) H 08/12/23 09:49 Troponin T Baseline 51 ng/L (0-15) H 08/12/23 09:49 Troponin T 120 Minute 542.9 ng/L (0-15) H 08/12/23 14:04 Delta Troponin T 491.9 ABS# (0-10) H* 08/12/23 14:04 Troponin T Hi Sens 6Hr 810.9 ng/L (0-15) H 08/12/23 16:39 Troponin T Hi Sens 6Hr Delta 759.9 ng/L (0-12) H* 08/12/23 16:39 Total Protein 7.5 g/dL (6.6-8.7) 08/12/23 09:49 Albumin 4.4 g/dL (3.5-5.2) 08/12/23 09:49 Globulin 3.1 g/dL (1.3-4.6) 08/12/23 09:49 Triglycerides 201 mg/dL (0-150) H 08/13/23 03:07 Cholesterol 189 mg/dL (0-200) 08/13/23 03:07 LDL Cholesterol, Calc 112 mg/dL (50-129) 08/13/23 03:07 HDL Cholesterol 37 mg/dL (60-100) L 08/13/23 03:07 LDL/HDL Ratio 3.03 RATIO (0.00-3.22) 08/13/23 03:07 Cholesterol/HDL Ratio 5.11 mg/dL (1.0-5.00) H 08/13/23 03:07 Vitals Last Vital Signs Temp 97.7 F 08/14/23 04:00 Pulse 65 08/14/23 05:24 Resp 18 08/14/23 04:00 BP 133/67 08/14/23 04:00 Pulse Ox 96 08/14/23 04:00 O2 Del Method Room Air 08/14/23 04:00 Discharge Plan Discharge Patient Disposition: Home Condition: Stable Prescriptions: New atorvastatin 40 mg Tablet 80 mg PO BEDTIME Qty: 90 3RF clopidogrel 75 mg Tablet 75 mg PO DAILY Qty: 90 3RF aspirin 81 mg Tablet,Delayed Release (Dr/Ec) 81 mg PO DAILY Qty: 90 3RF losartan 100 mg tablet 100 mg PO DAILY Qty: 90 3RF metoprolol tartrate 25 mg Tablet 25 mg PO BID@0900,2100 Qty: 120 3RF No Action No Known Home Medications Discharge Orders: Discharge Order (Routine); Ordered 08/14/23 Ordered By: Mayank Torres Referrals: Herlinda Morrissey FNP [Nurse Practitioner] - 08/28/23 10:30 am Gerardo Ovalle MD [Primary Care Provider] - 08/21/23 10:30 am ( ) Discharge Diet: Diabetic Discharge Activity: Resume usual activity Patient Instructions: Metoprolol (By mouth) (Lopressor, Toprol XL), Aspirin (By mouth) (Ronda Extra Strength, Ronda Aspirin Children's,..., Losartan (By mouth) (Cozaar), Atorvastatin (By mouth) (Lipitor, Atorvaliq), Clopidogrel (By mouth) (Plavix), Heart Attack (DC), Coronary Angioplasty (DC), Heart Healthy Diet (DC), Coronary Intravascular Stent Placement (DC), Opioid Safety, Post Angiogram Home Care Instructions, Post Heart Attack Stoplight Discharge Attestations Time Spent in Discharge Care*: greater than 30 min Quality Metrics Clinical Quality Measures [ Acute Myocardial Infaction { Clinical Trial Participant: No; Contraindication to aspirin: None; Aspirin prescribed; Contraindication to statin: None; Statin prescribed; Contraindication to PCI: None; PCI performed;}] Coding Level of Care Code Acute Code for [facility] Diagnoses STEMI (ST elevation myocardial infarction) I21.3 Tobacco use disorder F17.200 Primary hypertension I10 Hypertension type: primary hypertension Type 2 diabetes mellitus without complication, without long-term current use of insulin E11.9 Diabetes mellitus complication status: without complication Diabetes mellitus intermediate manager insulin use: without intermediate manager use
[2023-08-14 08:00] VITALS: BP 159/89; PULSE 55; TEMP 36.7; O2SAT 94
[2023-08-14] MEDS: metoprolol tartrate 25 mg Tablet PO (09:04)
[2023-08-14] MEDS: aspirin 81 mg EC Tablet PO (09:04)
[2023-08-14] MEDS: losartan 50 mg Tablet PO (09:04)
[2023-08-14] MEDS: clopidogrel 75 mg Tablet PO (09:04)
[2023-08-14 10:09] VITALS: BP 159/89; PULSE 55; TEMP 36.7; O2SAT 94
--- NOTE | 2023-08-14 10:53 | PC.NURSE ---
Discharge Note Patient discharged to [home] via [w/c to POV] accompanied by [family]. Discharge instructions reviewed with patient and/or sales representative graphic art. Mobile pharmacy medications and/or prescriptions provided. Belongings/home medications returned.
== END 2023-08-14 10:54 | disposition home or self-care (01) | DRG 321 ==
LOC: ER 09:53 → CCL 09:55 → ICU 11:33 → CSU 08-13 16:35
PROVIDERS: Admitting Provider Internal Medicine; Emergency Provider Family Medicine; PCP Family Medicine; Visit Provider Internal Medicine
PROC: 027137Z Dilation of Coronary Artery, Two Arteries with Four or More Drug-eluting Intraluminal Devices, Percutaneous Approach (ICD-10-PCS; principal; 2023-08-12 09:45)
PROC: 027137Z Dilation of Coronary Artery, Two Arteries with Four or More Drug-eluting Intraluminal Devices, Percutaneous Approach (ICD-10-PCS; 2023-08-12 09:45)
DX: I21.02 ST elevation (STEMI) myocardial infarction involving left anterior descending coronary artery (principal); I10 Essential (primary) hypertension; E11.9 Type 2 diabetes mellitus without complications; F17.210 Nicotine dependence, cigarettes, uncomplicated; F17.220 Nicotine dependence, chewing tobacco, uncomplicated; Z79.84 Long term (current) use of oral hypoglycemic drugs
CPT/HCPCS: 36415; 71045; 80048; 80053; 80061; 83036; 84484; 85025; 85347; 85730; 93005; 93306; 93454; 96365; 96366; 96367; 96374; 96375; 99152; 99153; 99285; A4222; C1725; C1769; C1874; C1887; C1894; C9600; C9601; J0282; J0283; J0360; J0461; J1644; J2250; J2270; J2405; J3010; J3490; J7030; Q9967

== ENCOUNTER → 2023-08-28 11:26 | Outpatient (BNVA) | payer MEDICAID, SELFPAY | PROVIDERS: PCP Family Medicine; Visit Provider Nurse Practitioner Family | DX: I25.10 Atherosclerotic heart disease of native coronary artery without angina pectoris (principal) | CPT/HCPCS: 80048 ==

== ENCOUNTER → 2023-12-31 14:08 | Outpatient (BNVA) | payer OTHER, SELFPAY | PROVIDERS: PCP Family Medicine; Visit Provider Family Medicine | DX: M79.671 Pain in right foot (principal); M79.672 Pain in left foot | CPT/HCPCS: 80053; 83036 ==

== ENCOUNTER 2024-06-29 22:39 | Inpatient (IN) | payer OTHER, SELFPAY ==
[2024-06-29 22:41] VITALS: BP 195/108; PULSE 81; RESP 18; TEMP 36.7; O2SAT 95
--- NOTE | 2024-06-29 22:44 | ECG_ITS ---
[facility] Test Date: 2024-06-29 Pat Name: Malachi Ames Department: Room: Gender: Male Assistant [employer]: : 1965 Requested By: Desirae Phillips Order Number: [id number] Canales MD: Mayank Torres M.D. Measurements Intervals [place] Rate: 87 P: -80 WI: 111 QRS: -4 QRSD: 97 T: 27 QT: 379 QTc: 456 Interpretive Statements ECTOPIC ATRIAL RHYTHM NONSPECIFIC T-WAVE ABNORMALITY Compared to ECG 08/12/2023 15:36:17 Junctional rhythm now present Sinus rhythm no longer present Myocardial infarct finding no longer present Possible ischemia no longer present T-wave abnormality still present Electronically Signed On 07-02-2024 08:00:38 MACHINE STONECUTTER by Mayank Torres M.D. [email or web address]
--- NOTE | 2024-06-29 22:44 | XRR_ITS ---
PROCEDURE INFORMATION: Exam: XR Chest Exam date and time: 06/29/2024 10:47 PM Age: 59 years old Clinical indication: Chest wall pain; Additional info: Chest pain TECHNIQUE: Imaging protocol: Radiologic exam of the chest. Views: 1 view. COMPARISON: CR XR chest 1V portable [id number] 08/12/2023 11:20 AM FINDINGS: Lungs: Unremarkable. No consolidation. Pleural spaces: Unremarkable. No pleural effusion. No pneumothorax. Heart/Mediastinum: Unremarkable. No cardiomegaly. Bones/joints: Unremarkable. XR/XR chest 1V portable [id number] IMPRESSION: No acute findings.
[2024-06-29] MEDS: morphine 4 mg/mL SDV 1 mL IVP (22:51)
[2024-06-29] MEDS: ondansetron 2 mg/ML SDV 2 mL 4 MG IVP (22:51)
[2024-06-29 22:55] VITALS: BP 195/108; PULSE 84; RESP 16; O2SAT 95
[2024-06-29 23:09] LABS: Lactic Sepsis W/Reflex 3.5 mmol/L (0.5-2.2)
[2024-06-29 23:17] LABS: Troponin(5th) Baseline 28 ng/L (0-15)
[2024-06-29 23:24] LABS: Alanine Aminotransferase 22 U/L (0-41); Albumin Level 4.5 g/dL (3.5-5.2); Alkaline Phosphatase 158 U/L (40-130); Anion Gap 20.8 (5-19); Aspartate Amino Transferase 18 U/L (0-40); Blood Urea Nitrogen 9 mg/dL (6-20); Calcium 9.7 mg/dL (8.5-10.5); Carbon Dioxide 22 mmol/L (22-29); Chloride 97 mmol/L (98-107); Globulin 3.1 g/dL (1.3-4.6); Glomerular Filtration Rate 86.4 mL/min (90-130); Glucose 331 mg/dL (65-115); NT Pro B Type Natriuretic Pept 245 pg/mL (0-125); Osmolality Calculated 294 mOsm/kg (285-295); Potassium 3.8 mmol/L (3.5-5.1); Sodium 136 mmol/L (136-145); Total Bilirubin 0.7 mg/dL (0.15-1.2); Total Protein 7.6 g/dL (6.6-8.7)
--- NOTE | 2024-06-29 23:35 | ED_ITS ---
HPI - Chest Pain 2 General: Chief Complaint: Chest Pain Stated Complaint: cp Time Seen by Provider: 06/29/24 22:41 History of Present Illness: 59-year-old man with a history of type 2 diabetes, coronary artery disease and hypertension who presents the emergency room by ambulance with chest pain. He reports central chest pain. He was very diaphoretic according to EMS. He received fentanyl in the ambulance. No lower extremity swelling. No new cough. No altered mental status. No abdominal pain. Related Data Previous Rx's ?Medication ?Instructions ?Recorded aspirin 81 mg tablet,delayed 81 mg PO DAILY #90 tabs 0 08/21/23 release atorvastatin 40 mg tablet 80 mg (2 x 40 mg) PO BEDTIME #90 08/21/23 tabs clopidogrel 75 mg tablet 75 mg PO DAILY #90 tabs 08/02 01/25 losartan 100 mg tablet 100 mg PO DAILY #90 tabs metoprolol tartrate 25 mg tablet 25 mg PO BID@0900,210 0 #120 tabs 08/21/23 cetirizine 10 mg tablet (Zyrtec) 10 mg PO DAILY PRN al lergy 03/14/24 symptoms #90 tabs fluticasone propionate 50 2 spray intranasal DAILY #16 grams 03/14/24 mcg/actuation nasal spray,suspension (Flonase Allergy Relief) glipizide 5 mg tablet 5 mg PO DAILY #90 tabs 04/06 metformin 500 mg tablet,extended 500 mg PO BID #180 ta bs 04/18/24 release 24 hr amlodipine 10 mg tablet 10 mg PO .qhs #90 tabs 05/17 Allergies Allergy/AdvReac Type Severity Reaction Status Date / Time No Known Allergies Allergy Verified 06/29/24 22:50 Review of Systems 2 Narrative: Constitutional symptoms: Negative except as documented in HPI. Skin symptoms: Negative except as documented in HPI. Eye symptoms: Negative except as documented in HPI. ENMT symptoms: Negative except as documented in HPI. Respiratory symptoms: Negative except as documented in HPI. Cardiovascular symptoms: Negative except as documented in HPI. Gastrointestinal symptoms: Negative except as documented in HPI. Genitourinary symptoms: Negative except as documented in HPI. Musculoskeletal symptoms: Negative except as documented in HPI. Neurologic symptoms: Negative except as documented in HPI. Psychiatric symptoms: Negative except as documented in HPI. Endocrine symptoms: Negative except as documented in HPI. PFSH ED 2 PFSH: Medical History DM type 2 (diabetes mellitus, type 2) Coronary artery disease STEMI (ST elevation myocardial infarction) Moderate congestive heart failure Hypertension Tobacco use disorder Recurrent inguinal hernia Surgical History Hx of inguinal hernia repair 09/08/22 lap repair of recurrent right inguinal hernia with mesh- Dr. Ojeda History of cholecystectomy H/O hernia repair Family History Mother Cancer unknown Other Bleeding disorder Lung disease Denies family history of Diabetes CAD (coronary artery disease) Clotting disorder Dementia Hyperlipidemia Psychiatric illness Chronic kidney disease (CKD) Anesthesia complication Hypertension Stroke Social History Smoking and tobacco/nicotine status: current every day tobacco/nicotine user (smoke and chew) cigarettes and smokeless tobacco Smokeless tobacco user: chewing tobacco Smokeless tobacco details: 3 cans a week Alcohol intake: current Alcohol intake frequency: holidays/special occasions only Substance/Drug Use: never Lives independently: Yes Household members: significant other Marital status: Number of children: 8 Current occupational status: employed Current occupation: [employer] Current gender identity: Male Special elisa needs: No Agree to transfusion: Yes Physical Exam 2 Narrative: EXAM NARRATIVE: General: Alert, no acute distress. Skin: Warm, diaphoretic. Head: Normocephalic, atraumatic. Neck: Supple, trachea midline. Eye: Extraocular movements are intact. Ears, nose, mouth and throat: mucosa moist. Cardiovascular: Regular, Normal peripheral perfusion. Respiratory: Lungs are clear to auscultation, respirations are non-labored, breath sounds are equal, Symmetrical chest wall expansion. Gastrointestinal: Soft, Nontender, Non distended Musculoskeletal: Normal ROM, no deformity. Neurological: Alert and oriented, No focal neurological deficit observed. Psychiatric: Cooperative, appropriate mood & affect. Course 2 Vital Signs: Vital signs: Vital Signs Temperature 98.0 F 06/29/24 22:41 Pulse Rate 92 06/30/24 01:30 Respiratory Rate 16 06/30/24 01:30 Blood Pressure 255/160 06/30/24 01:30 Pulse Oximetry 96 06/30/24 01:30 Oxygen Delivery Me thod Room Air 06/30/24 01:30 MDM - Chest Pain Medical Decision Making Differential diagnosis for patient with chest pain includes but is not limited to and based on the above HPI, review of systems and physical exam: Pneumonia. unstable angina. angina. Acute coronary syndrome / AL. Pulmonary embolism. Costochondritis / musculoskeletal. Pleurisy. Pericarditis. Esophageal spasm. Pancreatis. Cholecystitis. Orders placed to evaluate differential diagnosis based on the above differential, HPI and physical exam EKG: Time 2244. Rate 87. Normal sinus rhythm, No ST-T changes, no ectopy, normal VT & QRS intervals, This was reviewed and interpreted by myself the ER physician at 2250. Chest x-ray: No acute process. No infiltrate. No pneumothorax. This was reviewed and interpreted by myself the emergency room physician. I also reviewed the radiology report. Lab Review: Laboratory results were reviewed and interpreted by myself the emergency room physician. Mild leukocytosis. Mild polycythemia. No renal failure. Initial troponin was 28. Repeat was 44 with a delta of 15. I reviewed the patient's medical record. Reexamination: Patient's blood pressure has continued to increase. At the time of admission I am starting a Cardene drip and his blood pressures to 55/160. This may have some pain component. He says morphine does not help at all. Given a dose of Dilaudid. Nitro has not helped. He had Nitropaste as well. Consultation: I spoke with Dr. Medrano who is on-call for the hospitalist service who agrees to admission to cardiac stepdown on observation. Assessment and plan: Chest pain Coronary artery disease Accelerated hypertension Elevated troponin ?Multiple doses of IV morphine, p.o. nitro and Nitropaste, now starting a Cardene drip and giving some Dilaudid. -I discussed the patient with the hospitalist on-call who is admitting the patient. - Discussed findings and plan with patient. Answered any questions. - All laboratory values were reviewed and interpreted personally by myself, the ER physician - All imaging was reviewed and interpreted personally by myself, the ER physician. - Evaluation and treatment of this problem were appropriate in the emergency setting Lab Data 06/29/24 22:18 06/29/24 22:18 Radiology Impressions Chest X-Ray 06/29/24 22:44 IMPRESSION: No acute findings. Laboratory Results WBC 12.72 10^3/uL (3.29-11.43) H 06/29/24 22:18 RBC 6.40 10^6/uL (3.85-5.65) H 06/29/24 22:18 Hgb 18.20 g/dL (11.27-16.99) H 06/29/24 22:18 Hct 50.4 % (37-53) 06/29/24 22:18 MCV 78.8 fl (82-101) L 06/29/24 22:18 MCH 28.4 pg (27-33) 06/29/24 22:18 MCHC 36.1 g/dL (30-55) 06/29/24 22:18 RDW 12.8 % (12.1-15.1) 06/29/24 22:18 Plt Count 196 10^3/cmm (157-399) 06/29/24 22:18 MPV 10.7 fL (7.4-10.4) H 06/29/24 22:18 Neut % (Auto) 72.1 % 06/29/24 22:18 Lymph % (Auto) 22.0 % 06/29/24 22:18 [place] % (Auto) 4.3 % 06/29/24 22:18 Eos % (Auto) 0.6 % 06/29/24 22:18 Baso % (Auto) 0.4 % 06/29/24 22:18 Neut # (Auto) 9.17 10^3/uL (1.8-7.7) H 06/29/24 22:18 Lymph # (Auto) 2.8 10^3/uL (0.8-4.8) 06/29/24 22:18 [place] # (Auto) 0.6 10^3/uL (0.2-0.9) 06/29/24 22:18 Eos # (Auto) 0.1 10^3/uL (0.0-0.8) 06/29/24 22:18 Baso # (Auto) 0.1 10^3/uL (0.0-0.1) 06/29/24 22:18 Nucleated RBC % (auto) 0 % 06/29/24 22:18 Nucleated RBCs # 0.0 /100WBC 06/29/24 22:18 Sodium 136 mmol/L (136-145) 06/29/24 22:18 Potassium 3.8 mmol/L (3.5-5.1) 06/29/24 22:18 Chloride 97 mmol/L (98-107) L 06/29/24 22:18 Carbon Dioxide 22 mmol/L (22-29) 06/29/24 22:18 Anion Gap 20.8 (5-19) H 06/29/24 22:18 BUN 9 mg/dL (6-20) 06/29/24 22:18 Creatinine 0.9 mg/dL (0.7-1.2) 06/29/24 22:18 GFR Calculation 86.4 mL/min (90-130) L 06/29/24 22:18 Glucose 331 mg/dL (65-115) H 06/29/24 22:18 Calculated Osmolality 294 mOsm/kg (285-295) 06/29/24 22:18 Lactic Acid 3.5 mmol/L (0.5-2.2) H 06/29/24 22:18 Lactic Acid (Sepsis) 3.2 mmol/L (0.5-2.2) H 06/30/24 00:31 Calcium 9.7 mg/dL (8.5-10.5) 06/29/24 22:18 Total Bilirubin 0.7 mg/dL (0.15-1.2) 06/29/24 22:18 AST 18 U/L (0-40) 06/29/24 22:18 ALT 22 U/L (0-41) 06/29/24 22:18 Alkaline Phosphatase 158 U/L (40-130) H 06/29/24 22:18 Troponin T Baseline 28 ng/L (0-15) H 06/29/24 22:18 Troponin T 120 Minute 43.36 ng/L (0-15) H 06/30/24 00:31 Delta Troponin T 15.36 ABS# (0-10) H* 06/30/24 00:31 NT-Pro-B Natriuret Pep 245 pg/mL (0-125) H 06/29/24 22:18 Total Protein 7.6 g/dL (6.6-8.7) 06/29/24 22:18 Albumin 4.5 g/dL (3.5-5.2) 06/29/24 22:18 Globulin 3.1 g/dL (1.3-4.6) 06/29/24 22:18 Influenza A (PCR) Negative (Negative) 06/29/24 23:01 Influenza Type B (PCR) Negative (Negative) 06/29/24 23:01 RSV (PCR) Negative (Negative) 06/29/24 23:01 SARS-CoV-2 (PCR) Negative (Negative) 06/29/24 23:01 All radiology interpretation(s) finalized by discharge Discharge Plan Discharge Patient Disposition: Placed in Observation Clinical Impression: Chest pain, Accelerated hypertension Coronary artery disease Qualifiers: Coronary Disease-Associated Artery/Lesion type: [place] artery [place] vs. transplanted heart: [place] heart Associated angina: without angina Qualified Code(s): I25.10 - Atherosclerotic heart disease of [place] coronary artery without angina pectoris Coding Level of Care Code ED Insulation Extruder Operator for Cyn Cummings
[2024-06-29 23:43] LABS: Basophils # 0.1 10^3/uL (0.0-0.1); Basophils % 0.4 %; Eosinophils # 0.1 10^3/uL (0.0-0.8); Eosinophils % 0.6 %; Hematocrit 50.4 % (37-53); Lymphocytes # 2.8 10^3/uL (0.8-4.8); Mean Corpuscular HGB Conc 36.1 g/dL (30-55); Mean Corpuscular Hemoglobin 28.4 pg (27-33); Mean Corpuscular Volume 78.8 fl (82-101); Mean Platelet Volume 10.7 fL (7.4-10.4); Monocytes # 0.6 10^3/uL (0.2-0.9); Monocytes % 4.3 %; Neutrophils # 9.17 10^3/uL (1.8-7.7); Neutrophils % 72.1 %; Nucleated Red Blood Cells % 0 %; Platelet Count 196 10^3/cmm (157-399); Red Cell Distribution Width 12.8 % (12.1-15.1); White Blood Count 12.72 10^3/uL (3.29-11.43)
[2024-06-29 23:43] LABS: Influenza A NEGATIVE (Negative); Influenza B NEGATIVE (Negative); Respiratory Syncytial Virus Ce NEGATIVE (Negative); SARS-CoV-2 PCR NEGATIVE (Negative)
[2024-06-29 23:52] VITALS: BP 188/107; PULSE 84; RESP 16; O2SAT 96
[2024-06-30] VITALS (140 sets, daily range): BP systolic 129–255; BP diastolic 65–160; PULSE 63–122; RESP 12–25; TEMP 36.6–37.3; O2SAT 89–100
[2024-06-30] MEDS: morphine 4 mg/mL SDV 1 mL IVP
[2024-06-30] MEDS: nitroglycerin 1 gm/inch oint Pkt 1 INCH TOPICAL (00:01)
[2024-06-30 00:39] LABS: Reflex Lactate Order REFLEX LACTIC ORDERD
[2024-06-30 01:00] LABS: Troponin 5 2HR 43.36 ng/L (0-15)
[2024-06-30 01:03] LABS: Lactic Acid level (Lactate) 3.2 mmol/L (0.5-2.2)
[2024-06-30] MEDS: nicardipine 20 MG/200 ML PREMIX 50 MG IV (01:26)
[2024-06-30 01:27] LABS: Troponin 5 2HR Delta 15.36 ABS# (0-10)
[2024-06-30] MEDS: HYDROmorphone 1 mg/mL INJ 1 mL IVP (01:42)
--- NOTE | 2024-06-30 01:45 | PC.NURSE ---
PT GIVEN 1 MG OF DILAUDID IV, PER DR ORDER.
--- NOTE | 2024-06-30 02:32 | PC.NURSE ---
MADE DR SPICER AWARE IF BP. PT TITRATED DOWN TO 3 MG/ HR
--- NOTE | 2024-06-30 03:56 | P.HP_ITS ---
Providers/Chief Complaint 2 Admitting Physician: Woo Medrano MD Primary Care Provider: Gerardo Ovalle MD Chief Complaint: cp History of Present Illness Malachi Ames Jr is a 59 year old male with established coronary disease STEMI August last year, active smoker, hypertension, presented with chief complaint of chest pain. Patient is stating that his symptoms started around 7:30 PM, patient describing his chest discomfort as pressure-like sensation, he will experiencing some needle in his left arm which improved in the hospital, patient is stating that he did not experience nausea vomiting diaphoresis but morphine did not help with his chest pain, he also received fentanyl by the EMS which improved his pain to some extent. In the ER he was diagnosed with non- STEMI and hypertensive emergency he was put on Cardene drip. Troponins with significant delta. 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 Review of Systems 2 Const: Denies: fever(s) Eyes: Denies: change in vision ENMT: Denies: throat pain Card: Reports: chest pain Resp: Reports: dyspnea GI: Denies: abdominal pain : Denies: flank pain Musc: Reports: back pain Medications/Allergies Home Medications ?Medication ?Instructions ?Recorded ?Confirmed ?Last Taken ?Type aspirin 81 mg tablet,delayed 81 mg PO DAILY #90 tabs 0 08/21/23 06/01/24 Unknown Rx release atorvastatin 40 mg tablet 80 mg (2 x 40 mg) PO BEDTIME #90 08/21/23 06/01/24 Unknown Rx tabs clopidogrel 75 mg tablet 75 mg PO DAILY #90 tabs 08/0206/01/24 Unknown Rx losartan 100 mg tablet 100 mg PO DAILY #90 tabs 06/01/24 Unknown Rx metoprolol tartrate 25 mg tablet 25 mg PO BID@0900,210 0 #120 tabs 08/21/23 06/01/24 Unknown Rx cetirizine 10 mg tablet (Zyrtec) 10 mg PO DAILY PRN al lergy 03/14/24 06/01/24 Unknown Rx symptoms #90 tabs fluticasone propionate 50 2 spray intranasal DAILY #16 grams 03/14/24 06/01/24 Unknown Rx mcg/actuation nasal spray,suspension (Flonase Allergy Relief) glipizide 5 mg tablet 5 mg PO DAILY #90 tabs 04/0606/01/24 Unknown Rx metformin 500 mg tablet,extended 500 mg PO BID #180 ta bs 04/18/24 06/01/24 Unknown Rx release 24 hr amlodipine 10 mg tablet 10 mg PO .qhs #90 tabs 05/1706/01/24 Unknown Rx Allergies Allergy/AdvReac Type Severity Reaction Status Date / Time No Known Allergies Allergy Verified 06/29/24 22:50 PFSH Acute 2 PFSH: Medical History DM type 2 (diabetes mellitus, type 2) Coronary artery disease STEMI (ST elevation myocardial infarction) Moderate congestive heart failure Hypertension Tobacco use disorder Recurrent inguinal hernia Surgical History Hx of inguinal hernia repair 09/08/22 lap repair of recurrent right inguinal hernia with mesh- Dr. Ojeda History of cholecystectomy H/O hernia repair Family History Mother Cancer unknown Other Bleeding disorder Lung disease Denies family history of Diabetes CAD (coronary artery disease) Clotting disorder Dementia Hyperlipidemia Psychiatric illness Chronic kidney disease (CKD) Anesthesia complication Hypertension Stroke Social History Smoking and tobacco/nicotine status: current every day tobacco/nicotine user (smoke and chew) cigarettes and smokeless tobacco Smokeless tobacco user: chewing tobacco Smokeless tobacco details: 3 cans a week Alcohol intake: current Alcohol intake frequency: holidays/special occasions only Substance/Drug Use: never Lives independently: Yes Household members: significant other Marital status: Number of children: 8 Current occupational status: employed Current occupation: [employer] Current gender identity: Male Special elsia needs: No Agree to transfusion: Yes Vitals/I&O/Wt Last Vital Signs Temp 98.0 F 06/29/24 22:41 Pulse 88 06/30/24 03:09 Resp 16 06/30/24 03:09 BP 149/83 06/30/24 03:30 Pulse Ox 96 06/30/24 03:30 O2 Del Method Room Air 06/30/24 03:09 06/29/24 06/29/24 06/30/24 14:59 22:59 06:59 Intake Total 0 / 0 42.5 / 42.5 Balance 0 / 0 42.5 / 42.5 Physical Exam 2 Narrative: Patient awake and alert Chest pain 3/10 Hypertensive No active shortness of breath nausea vomiting GCS 15 Nonfocal neuroexam Pleasant cooperative Euvolemic S1, S2 Currently on room air Data 06/29/24 22:18 06/29/24 22:18 A&P Assessment and plan (1) NSTEMI (non-ST elevated myocardial infarction): (2) Hypertensive emergency: Plan Non-STEMI Start ACS protocol Therapeutic aspirin and Lovenox along Plavix dose administered Echo requested Patient may need coronary angiogram Previous history of established coronary disease with STEMI and PCI 08/25 Will consult cardiology Patient is an active smoker with history of diabetes and hypertension, significant delta troponin, EKG showing ST depression nonspecific Hypertensive emergency: Off Cardene drip, I will use Nitropaste, lisinopril optimal dose, IV hydralazine on as-needed basis Active smoker: Nicotine patch N.p.o. DVT prophylaxis covered with therapeutic Lovenox Requested drug screen Accu-Cheks every 4-6 hours during n.p.o. status PDMP PDMP Reviewed: Not Reviewed Attestations 2 Medical Necessity Statement*: More than 2 midnights anticipated Coding Level of Care Code Acute Code for [facility] Diagnoses NSTEMI (non-ST elevated myocardial infarction) I21.4 Hypertensive emergency I16.1
--- NOTE | 2024-06-30 04:01 | USCV_ITS ---
Malachi Ames Age: 59 Gender: M : 1965 Exam Date: 06/30/2024 04:14 Ordering Phys: Woo Medrano MD Technologist: MISA Exam Location: [facility] [place] Indication: cp history of DM2, HTN BP: 149 / 83 HR: 80 Rhythm: Sinus Technical Quality: Adequate MEASUREMENTS (Male / Female) Normal Values 2D ECHO LV Diastolic Diameter PLAX 4.0 cm 4.2 - 5.9 / 3.9 - 5.3 cm IVS Diastolic Thickness 2.0 cm 0.6 - 1.0 / 0.6 - 0.9 cm IVS Systolic Thickness 2.1 cm LVPW Diastolic Thickness 1.6 cm 0.6 - 1.0 / 0.6 - 0.9 cm LVPW Systolic Thickness 1.8 cm LVOT Diameter 1.7 cm LV Ejection Fraction 2D Teich 64.0 % LV Ejection Fraction MOD 4C 61.5 % LV Ejection Fraction MOD 2C 66.2 % LV Ejection Fraction 2C AL 68.2 % LA Diameter 3.5 cm Aorta at Sinotubular Diameter 3.2 cm IVC Diameter 1.0 cm M-MODE LA Ao Ratio MM 1.2 AV Cusp Separation MM 1.9 cm DOPPLER AV Peak Velocity 130.0 cm/s LVOT Peak Velocity 143.0 cm/s AV Area Cont Eq vti 3.0 cm squared AV Area Cont Eq pk 2.5 cm squared MV Peak Velocity 103.0 cm/s MV Area PHT 3.6 cm squared Mitral E to A Ratio 0.8 TV Peak E Velocity 35.0 cm/s PV Peak Velocity 138.0 cm/s FINDINGS Left Ventricle Left ventricle is normal in size. LV systolic function is normal with EF of 60 to 65%. No regional wall motion abnormalities are seen. Grade 1 diastolic dysfunction Right Ventricle Normal in size and function Right Atrium Normal in size. Eustachian valve seen. Left Atrium Normal in size Mitral Valve Structurally normal mitral valve. Mild mitral regurgitation Aortic Valve Structurally normal aortic valve. No significant stenosis or regurgitation. Tricuspid Valve Mild tricuspid regurgitation. Insufficient TR jet to evaluate RVSP. Pulmonic Valve Not well visualized Pericardium Trace pericardial effusion. Aorta Normal in size IVC Appears to be normal CONCLUSIONS LV systolic function is normal with EF of 60-65%. Grade 1 diastolic dysfunction. Eustachian valve seen in right atrium. Mild mitral regurgitation. Mild tricuspid regurgitation. Trace pericardial effusion. Mayank Torres MD (Electronically Signed) Final Date: 30 June 2024 18:17 S
--- NOTE | 2024-06-30 04:39 | PC.NURSE ---
PT EKG WAS DUE AT 0044, PT HAD EKG AT 2245. RT CALLED TO INFORM NURSE AT 0150, NURSE FAILED TO GET EKG. PT WAS GOT ADMISSION ORDERS AT 0140. NURSE DID PERFORM EKG.
--- NOTE | 2024-06-30 04:44 | ECG_ITS ---
[facility] 2024-06[facility]30 Pat Name: Malachi Ames Department: Room: ED Gender: Male Director Data Analytics: : 1965 Requested By: Desirae Phillips Order Number: [id number] Ally MD: Mayank Torres M.D. Measurements Intervals [place] Rate: 84 P: -81 NH: 120 QRS: 18 QRSD: 101 T: 87 QT: 373 QTc: 442 Interpretive Statements ECTOPIC ATRIAL RHYTHM NONSPECIFIC T-WAVE ABNORMALITY Compared to ECG 06/30/2024 04:44:35 No significant changes Electronically Signed On 07-02-2024 08:23:45 CLAIMS CUSTOMER SERVICE REPRESENTATIVE by Mayank Torres M.D. [email or web address]
--- NOTE | 2024-06-30 04:44 | ECG_ITS ---
[facility]: 2024-[facility]-30 Pat Name: Malachi Ames Department: Room: ED Gender: Male Switch Maker: : 1965 Requested By: Desirae Phillips Order Number: [id number] Ally MD: Mayank Torres M.D. Measurements Intervals [place] Rate: 80 P: -77 NC: 119 QRS: -1 QRSD: 98 T: 67 QT: 383 QTc: 443 Interpretive Statements EECCTOPIC ATRIAL RHYTHM NONSPECIFIC T-WAVE ABNORMALITY Compared to ECG 06/29/2024 22:44:38 No significant changes Electronically Signed On 07-02-2024 08:24:37 INTERSTATE BUS DRIVER by Mayank Torres M.D. [email or web address]
[2024-06-30 04:48] LABS: D Dimer 0.39 ug/mLFEU (0-0.59)
[2024-06-30 04:57] LABS: Troponin 5 6HR 110.4 ng/L (0-15); Troponin 5 6HR Delta 82.4 ng/L (0-12)
--- NOTE | 2024-06-30 05:06 | PC.NURSE ---
PER DR ORDER, PT DRIP PAUSED.
[2024-06-30 05:09] LABS: Estmated Average Glucose 214; Hemoglobin A1C 9.1 % (4.0-6.0)
[2024-06-30 05:12] LABS: Vitamin B12 380 pg/mL (232-1245)
[2024-06-30] MEDS: clopidogrel 300 mg Tablet PO (05:37)
[2024-06-30] MEDS: aspirin 325 mg EC Tablet PO (05:37)
--- NOTE | 2024-06-30 06:04 | PC.NURSE ---
DISCUSSED CARE WITH DR Vegas AT 0604, DR Vegas GAVE ORDER TO GIVE LISINOPRIL, AMLODIPINE.
--- NOTE | 2024-06-30 06:06 | PC.NURSE ---
DR Vegas ALSO GAVE ORDER TO GIVE PRN HYDRALAZINE.
--- NOTE | 2024-06-30 06:14 | PC.NURSE ---
PT BG [phone]
[2024-06-30] MEDS: lisinopril 10 mg Tablet 20 MG PO ×3 (06:18→17:46)
[2024-06-30] MEDS: amlodipine 10 mg Tablet PO ×2 (06:18→21:05)
[2024-06-30 06:19] LABS: Glucose Point of Care 283 mg/dL (70-110)
[2024-06-30 06:53] LABS: Amphetamines Screen Urine Negative (Negative); Barbiturates Screen Urine Negative (Negative); Benzodiazepines Screen Urine Negative (Negative); Cocaine Screen Urine Negative (Negative); Opiate Screen Urine Positive (Negative); PCP Screen Urine Negative (Negative); THC Screen Urine Negative (Negative)
[2024-06-30] MEDS: hyDRALAzine 20 mg/mL INJ 1 mL 10 MG IVP (07:12)
[2024-06-30] MEDS: enoxaparin 100 mg/mL Syringe SUBCUT ×2 (07:13→17:47)
--- NOTE | 2024-06-30 08:14 | PC.PHAR ---
Pt states he took his morning medications yesterday. Several of his bottles are empty.
[2024-06-30] MEDS: atorvastatin 40 mg Tablet 80 MG PO (09:14)
[2024-06-30] MEDS: metoprolol tartrate 25 mg Tablet PO ×2 (09:14→21:05)
[2024-06-30] MEDS: nitroglycerin 1 gm/inch oint Pkt 0.5 INCH TOPICAL ×2 (13:02→17:46)
--- NOTE | 2024-06-30 13:20 | P.MISC_ITS ---
Miscellaneous Note Note: seen this am awaiting cardiology consultation. patient most likely will need angiogram going forward discussed with Sarah Beth Cardio MANAGER APPLE, she will discuss with Dr. Isabel
--- NOTE | 2024-06-30 13:20 | PM.MISC ---
Miscellaneous Note Note: seen this am awaiting cardiology consultation. patient most likely will need angiogram going forward discussed with Sarah Beth Cardio LUMBER TYING MACHINE OPERATOR, she will discuss with Dr. Isabel
[2024-06-30] MEDS: morphine IR 15 mg Tablet PO (14:24)
[2024-06-30 14:34] LABS: Glucose Point of Care 286 mg/dL (70-110)
--- NOTE | 2024-06-30 15:25 | P.CONIM_ITS ---
<Statement entered by Woo Isabel MD - 07/01/24 00:30> Patient was evaluated and cared for in conjunction with an advanced practice practitioner. I personally examined the patient and reviewed the chart and all pertinent data including imaging, telemetry, and laboratory results. I discussed the patient in detail with the advanced practice practitioner. Please see their note for complete H&P testing result and agreed upon plan of care for the patient. 59-year-old male past medical history significant for coronary artery disease prior stents presented with chest pain ruled in for non-ST elevation MO. GENERAL: Patient is alert, awake and oriented x3. HEART: Regular S1 and S2. No murmur, rub or gallop. LUNGS: Clear to auscultate bilaterally. CENTRAL NERVOUS SYSTEM: Grossly nonfocal. EXTREMITIES: Lower extremities with out edema bilaterally. Non-ST elevation MO Hypertension Hyperlipidemia Continue aspirin statin load with Plavix Continue beta-lyudmila Nitro as needed basis N.p.o. overnight Possible left heart cath tomorrow Providers/Reason For Consult 2 Consulting Physician/Specialty*: Woo Isabel MD Reason for Consult*: NSTEMI Requesting Physician: Dr. Christian Attending Physician: Soledad Christian MD Primary Care Provider: Gerardo Ovalle MD History of Present Illness History of Present Illness Malachi Ames Jr is a 59 year old male with a history of type 2 diabetes, history of STEMI requiring stent x 2 to the mid LAD with 2 stents in the proximal to mid left circumflex artery [place] [address] Torres. He states he is an active smoker as well and has a history of hypertension. He presented to the ER with a complaint of chest pain. His symptoms started at 7:30 PM yesterday. He described it as an elephant sitting on his chest . She states he did have an episode of vomiting with this. He states he still has some chest pressure to the left side of his chest, but it is significantly improved. Denies shortness of breath. Troponin was significantly elevated at 28-43-110. EKG showed no acute ST or T wave abnormalities. He was given a loading dose of aspirin and Plavix. In the ER, he was put on a cardene drip, but this has been discontinued. Current bp 151/95. Nitro bid being given. Review of Systems 2 Narrative: Consitutional: denies fever, chills, body aches, or changes in appetite, denies abnormal weight loss Eyes: Denies changes in vision Card: Denies chest pain, Reports mild chest pressure to the left side of chest, denies palpitations, irregular heart rhythm, edema, syncope, shortness of breath, orthopnea, leg pain with exertion Resp: Denies shortness of breath, denies hemoptysis, denies cough GI: denies abdominal pain, denies nausea or voimting, denies blood in stool : denies blood in urine, denies dysuria Musc: Denies extremity pain, denies limited range of motion or recent injury Skin: Denies rash, lesions, or wounds, denies changes to skin color Neuro: Denies nubmness in extremities, h/a, s/s of stroke Medications/Allergies Home Medications ?Medication ?Instructions ?Recorded ?Confirmed ?Last Taken ?Type aspirin 81 mg tablet,delayed 81 mg PO DAILY #90 tabs 0 08/21/23 06/30/24 06/29/24 Rx release metoprolol tartrate 25 mg tablet 25 mg PO BID@0900,210 0 #120 tabs 08/21/23 06/30/24 06/29/24 Rx cetirizine 10 mg tablet (Zyrtec) 10 mg PO DAILY PRN al lergy 03/14/24 06/30/24 Unknown Rx symptoms #90 tabs metformin 500 mg tablet,extended 500 mg PO BID #180 ta bs 04/18/24 06/30/24 06/29/24 Rx release 24 hr amlodipine 10 mg tablet 10 mg PO .qhs #90 tabs 05/1706/30/24 06/28/24 Rx atorvastatin 80 mg tablet 80 mg PO BEDTIME 06/30/2406/28/24 History clopidogrel 75 mg tablet 75 mg PO QPM 06/30/2406/28/24 History fluticasone propionate 50 2 spray intranasal DAILY PRN 06/30/24 06/30/24 Unknown History mcg/actuation nasal allergies spray,suspension (Flonase Allergy Relief) glipizide 5 mg tablet 5 mg PO QPM 06/30/24 5 06/28/24 History losartan 100 mg tablet 100 mg PO QAM 06/30/2406/3006/29/24 History Allergies Allergy/AdvReac Type Severity Reaction Status Date / Time No Known Allergies Allergy Verified 06/29/24 22:50 Current Medications Generic Name Dose Route Start Last Admin Trade Name Freq PRN Reason Stop Dose Admin Amlodipine Besylate 10 mg 06/30/24 05:45 06/30/24 06:18 Amlodipine 10 Mg Tablet PO 10 mg BEDTIME CANDIDO Administration Atorvastatin Calcium 80 mg 06/30/24 09:00 06/30/24 09:14 Atorvastatin 40 Mg Tablet PO 80 mg DAILY CANDIDO Administration Enoxaparin Sodium 100 mg 06/30/24 06:30 06/30/24 07:13 Enoxaparin 100 Mg/Ml Syringe SUBCUT 100 mg Q12H CANDIDO Administration Hydralazine HCl 10 mg 06/30/24 05:38 06/30/24 07:12 Hydralazine 20 Mg/Ml Inj 1 Ml IVP 10 mg Q4H PRN Administration bp>180/100 Nicardipine/Sodium Chloride 20 mg in 200 mls @ 0 mls/hr 06/30/24 01:00 06/30/24 05:06 Cardene IV 0 mg/hr .Q0M CANDIDO 0 mls/hr Titration Protocol Per Protocol Lisinopril 20 mg 06/30/24 05:40 06/30/24 09:13 Lisinopril 10 Mg Tablet PO 20 mg BID CANDIDO Administration Metoprolol Tartrate 25 mg 06/30/24 09:00 06/30/24 09:14 Metoprolol Tartrate 25 Mg Tablet PO 25 mg BID@0900,2100 CANDIDO Administration Morphine Sulfate 15 mg 06/30/24 04:01 06/30/24 14:24 Morphine Ir 15 Mg Tablet PO 15 mg Q6H PRN Administration MODERATE PAIN Nitroglycerin 0.5 inch 06/30/24 05:45 06/30/24 13:02 Nitroglycerin 1 Gm/Inch Oint Pkt TOPICAL 0.5 inch Q6H CANDIDO Administration PFSH Acute 2 PFSH: Medical History DM type 2 (diabetes mellitus, type 2) Coronary artery disease STEMI (ST elevation myocardial infarction) Moderate congestive heart failure Hypertension Tobacco use disorder Recurrent inguinal hernia Surgical History Hx of inguinal hernia repair 09/08/22 lap repair of recurrent right inguinal hernia with mesh- Dr. Ojeda History of cholecystectomy H/O hernia repair Family History Mother Cancer unknown Other Bleeding disorder Lung disease Denies family history of Diabetes CAD (coronary artery disease) Clotting disorder Dementia Hyperlipidemia Psychiatric illness Chronic kidney disease (CKD) Anesthesia complication Hypertension Stroke Social History Smoking and tobacco/nicotine status: current every day tobacco/nicotine user (smoke and chew) cigarettes and smokeless tobacco Smokeless tobacco user: chewing tobacco Smokeless tobacco details: 3 cans a week Alcohol intake: current Alcohol intake frequency: holidays/special occasions only Substance/Drug Use: never Lives independently: Yes Household members: significant other Marital status: Number of children: 8 Current occupational status: employed Current occupation: [employer] Current gender identity: Male Special elisa needs: No Agree to transfusion: Yes Vitals/I&O/Wt Last Vital Signs Temp 97.9 F 06/30/24 14:54 Pulse 77 06/30/24 14:54 Resp 20 H 06/30/24 14:54 BP 151/95 06/30/24 14:54 Pulse Ox 93 06/30/24 14:54 O2 Del Method Room Air 06/30/24 14:37 06/30/24 06/30/24 06/30/24 06:59 14:59 22:59 Intake Total 127.0 / 127.0 Balance 127.0 / 127.0 Weight last 48 hrs Weight 199 lb Physical Exam 2 Narrative: General: No apparent distress, healthy appearing, well nourished HENMT: normoceophalic Neck: No carotid bruit bilaterally Muskuloskeletal: Full ROM Lymphatic: no lymphedema noted Respiratory: Normal respiratory effort, clear to auscultation bilaterally throughout all lung bryant, no use of accessory muscles Cardio: No JVD, regular rate, regular rhythm, S1 S2 normal, no murmurs, peripheral pulses 2+ radial palpated bilaterally GI: Normal to inspection, nondistended Extremities: Full ROM, normal, normal capillary refill, no cyanosis or edema Neuro: Alert and oriented x4, no focal motor deficits Psych: Affect normal Skin: No rashes or lesions noted, no wounds Data 06/29/24 22:18 06/29/24 22:18 A&P Assessment and plan (1) Coronary artery disease: Qualifiers: Coronary Disease-Associated Artery/Lesion type: [place] artery [place] vs. transplanted heart: [place] heart Associated angina: without angina Q ualified Code(s): I25.10 - Atherosclerotic heart disease of [place] coronary artery without angina pectoris (2) Chest pain: Qualifiers: Chest pain type: other chest pain Qualified Code(s): R07.89 - Other chest pain (3) Accelerated hypertension: (4) NSTEMI (non-ST elevated myocardial infarction): (5) Hypertensive emergency: (6) DM type 2 (diabetes mellitus, type 2): Qualifiers: Diabetes mellitus ems educator insulin use: without retirement use Diabetes mellitus complication status: without complication Qualified Code(s): E11.9 - Type 2 diabetes mellitus without complications Plan Patient has s/s worrisome for NSTEMI due to underlying coronary ischemia. Troponin is elevated. Continue Plavix and aspirin. Continue lovenox. Continue Metoprolol and amlodipine, lisinopril. Patient will need echo to evaluate LV function and for any wall motion abnormalities. I discussed patient's case with Dr. Isabel, and he recommends proceeding with coronary angiogram. I did discuss this with the patient as well. The plan is tentatively to do him tomorrow. Thank you, Dr. Christian, for allowing us to care for this very pleasant 59 year old gentleman. PDMP PDMP Reviewed: Not Reviewed Consult Attestations 2 Medical Necessity Statement: Deferred to primary. Coding Level of Care Code Acute Code for [facility] Diagnoses Coronary artery disease involving [place] coronary artery of [place] heart without angina pectoris I25.10 Coronary Disease-Associated Artery/Lesion type: [place] artery [place] vs. transplanted heart: [place] heart Associated angina: without angina Other chest pain R07.89 Chest pain type: other chest pain Accelerated hypertension I10 NSTEMI (non-ST elevated myocardial infarction) I21.4 Hypertensive emergency I16.1 Type 2 diabetes mellitus without complication, without long-term current use of insulin E11.9 Diabetes mellitus ems educator insulin use: without retirement use Diabetes mellitus complication status: without complication
[2024-06-30 20:25] LABS: Glucose Point of Care 303 mg/dL (70-110)
[2024-07-01] VITALS (31 sets, daily range): BP systolic 98–165; BP diastolic 59–101; PULSE 52–79; RESP 10–26; TEMP 36.6–37.1; O2SAT 89–98
[2024-07-01 05:44] LABS: Blood Urea Nitrogen 14 mg/dL (6-20); Calcium 8.9 mg/dL (8.5-10.5); Carbon Dioxide 23 mmol/L (22-29); Chloride 100 mmol/L (98-107); Glomerular Filtration Rate 86.4 mL/min (90-130); Glucose 278 mg/dL (65-115); Magnesium 1.9 mg/dL (1.7-2.3); Osmolality Calculated 284 mOsm/kg (285-295); Phosphorus 2.4 mg/dL (2.5-4.5); Sodium 132 mmol/L (136-145)
[2024-07-01 06:08] LABS: Glucose Point of Care 275 mg/dL (70-110)
[2024-07-01] MEDS: atorvastatin 40 mg Tablet 80 MG PO (08:57)
[2024-07-01] MEDS: lisinopril 10 mg Tablet 20 MG PO ×2 (08:57→17:21)
[2024-07-01] MEDS: aspirin 81 mg EC Tablet PO (08:58)
[2024-07-01] MEDS: clopidogrel 75 mg Tablet PO (08:58)
[2024-07-01] MEDS: metoprolol tartrate 25 mg Tablet PO (08:58)
--- NOTE | 2024-07-01 09:43 | XACV_ITS ---
Exam Room: 2 Ht: 178 cm Wt: 93 kg BSA: 2.17 m2 Gender: Male : 1965 Performing Physician(s): Dr. Rodriguez Any Known Allergies: No known allergies Exam Priority: Routine Procedure(s): Procedure Description: Diagnostic procedure Procedure Description: Left Heart Catheterization Procedure Description: Left ventriculography Procedure Description: Coronary Angiography Maame LIEBERMAN; Diagnostic Cath Status: Urgent Diagnostic Findings * Angiography shows a left coronary dominant system. * Left Main artery: Normal. * LAD: Mild diffuse in-stent restenosis of previously placed stent in the proximal and mid segment. There is a 50% focal in-stent stenosis at the distal part of previously placed stent in the mid/distal LAD. * LCx: Medium large nondominant vessel. Patent stent in the mid LCx into 1st OM. * Large dominant vessel. 30-40% focal stenosis in the mid segment. PLV has mild diffuse disease. * LV angiogram: Normal LVEDP. Normal wall motion and thickening. LVEF normal 60%. Conclusions 1. Patient previously placed stents in the LAD and circumflex. There was a moderate in-stent stenosis in the distal part of mid LAD stent. Mild disease in RCA. Normal LVEF. Recommendations * Aggressive medical therapy for coronary artery disease. Interventional RX Recommendation: none Diagnostic RX Recommendation: medical therapy and/or counseling Anticoagulation: Heparin Post Op Diagnosis: Description: NSTEMI Ventriculography Ejection Fraction: 62.0 % Pressures Phase:Rest AO : 79 / 60 ( 70 ) @ 11:09:00 AM 83 / 64 ( 74 ) @ 11:12:00 AM 112 / 63 ( 82 ) @ 11:18:00 AM 112 / 62 ( 83 ) @ 11:18:00 AM LV : 96 / 10 / 14 @ 11:16:00 AM 115 / -1 / 17 @ 11:18:00 AM 115 / 0 / 16 @ 11:18:00 AM Valves Phase:DefaultPhase AV : 3.0 @ 11:23:47 AM AV Mean Gradient: 11.0 @ 11:23:47 AM Clinical Evaluation EBL: 5mL-10mL Procedural Details Procedure Consent Obtained. Pre-Procedure Time Out. Identified patient by full name and date of as verbalized by the patient/guarantor. Does the consent match the physician's order: Yes. Accurate & Complete Informed Consent: Yes. Inpatient/Outpatient History & Physical on Chart: Yes. If H&P is completed, is and addenduem needed: No; If yes, is the addendum complete: N/A. Visualize and Verify Site with Patient/Guarantor: N/A. Relevant Radiology Images available: Yes. Pre-op teaching completed and patient verbalized understanding. The risks, benefits, and alternatives of sedation and/or procedure were discussed by physician. The patient agrees to continue. Procedure started. [facility] Clinical Fraility Score: 3: Managing Well. Rotary Furnace Operator Indications: ACS > 24 hours. Chest Pain Symptom Assessment: Typical Angina Symptoms. Current diagnosis: NSTEMI. PERRLA. Strong, equal hand painter assistant bilaterally. Lungs clear x 5 lobes. IV Site on Arrival: 18 gauge in the left anticubital. IV Fluids: 0.9% NaCl at KVO. 0 mL infused prior to supervisor dental laboratory. Oxygen started at 2liters/min via nasal canula. right groin was prepped with chloroprep then draped in the usual sterile fashion. right radial was prepped with chloroprep then draped in the usual sterile fashion. Physician notified. Baseline sample Acquired. HR: 57 BPM. Physician arrived. Physician scrubbed in. Immediate Pre-Procedure Time Out. Correct Patient: Yes; Correct Procedure: Yes; Correct Site: Yes; Correct Patient Position: Yes; Correct Supplies: Yes; Dried Flammable Prep: Yes; Blood Products Available: N/A;. Lidocaine 1% infiltrated to the right radial. Arterial access obtained. A 5 croatian JL3.5 catheter in over wire. Multiple views taken of left coronary artery. Catheter removed over the exchange wire. A 5 croatian JR4 catheter in over wire. Multiple views taken of right coronary artery. Catheter removed over the exchange wire. A 5 croatian Angled Pig catheter in over wire. EDP Sample taken: LV 96/10,14; HR: 49 BPM; SpO2: 96%. LV gram performed in [place] @ 10 mL/second for a total of 30 mL. EDP Sample taken: LV 115/-2,17; HR: 56 BPM; SpO2: 97%. Pullback taken: LV 115/-1,16; AO 112/63(82); Mean: 11mmHg, Peak to Peak: 3mmHg, SEP: 14sec/min; HR: 54 BPM; SpO2: 97%. A TR Band was successful obtaining hemostatsis at the Right Radial artery insertion site. Post Procedure: Pulses reassessed and unchanged. PERRLA. Strong, equal hand painter assistant bilaterally. No VTE prophylaxis required. Medication's Wasted: Lidocaine 1% = 18 mL. Medication's Wasted: Nitro = 49.9 mcg. Medication's Wasted: Other = Fentanyl 50 mcg Versed 1mg. Medication's Wasted: Heparin = 1000 units. Total IV fluids: 50 mL. Complications: None. Estimated blood loss: 5mL-10mL. Responsiveness - Normal response to verbal stimuli; alert and oriented, PERRLA. Airway - Unaffected, no intervention required; spontaneous ventilation. Circulation: W/N/L, pulses unchanged. Vital chart was stopped. Nausea/Vomiting: No. Procedure completed. Patient transferred by bed to 1st floor. Access Site Site: Right Radial artery Sheath Size: 6 Fr Hemostasis Method: TR Band Hemostasis Success: Successful Procedure Medications Start: 11:00 AM Stop: 11:00 AM Medication: Versed 1 mg and Fentanyl 25 mcg Amount: 1 Route: I.V. Start: 11:04 AM Stop: 11:04 AM Medication: Fentanyl Amount: 25 mcg Route: I.V. Start: 11:05 AM Stop: 11:05 AM Medication: Nitrogylcerin Amount: 100 mcg Route: I.A. Start: 11:08 AM Stop: 11:08 AM Medication: Heparin Amount: 5000 units Route: I.V. I, the attending physician, have reviewed and verified all procedure medications. Yes, all medications given per verbal order History/Risk Factors Hypertension: Yes Dyslipidemia: Yes Peripheral Arterial Disease (PAD): No Myocardial Infarction (ME): Yes Obesity: No Renal Disease: No Tobacco Use: Current/Recent(w/in 1 year) Prior Interventions PCI: Yes CABG: No Valve Surgery: No Date of PCI: 08/12/2023 Report Signatures Finalized by Nhi Rodriguez MD on 07/01/2024 02:15 PM
[2024-07-01] MEDS: insulin lispro 100 unit/1 mL SUBCUT ×2 (11:47→17:21)
[2024-07-01 11:48] LABS: Glucose Point of Care 226 mg/dL (70-110)
--- NOTE | 2024-07-01 12:23 | PC.NURSE ---
received from cardiac clinical laboratory scientist at 1145 via w/c.report received.pt is alert and awake and oriented x 4.denies pain at present.sr on monitor.right wrist with tr band on and inflated.right hand is warm to touch and with brisk capillary refill.no hematoma noted.palpable radial pulse noted distal to tr band.pt instructed in activity restrictions s/p radial artery procedure...and instructed to notify staff for any bleeding,pain,numbness,sob...or for any concerns at all.pt verb understanding of instructions
--- NOTE | 2024-07-01 12:44 | P.PN_ITS ---
<Statement entered by Nhi Rodriguez MD - 07/02/24 08:35> Pt seen, reviewed meds, lab data and clinical status. stable post card cath. For medical management of CAD. Agreed with assessment/manaegment plan Subjective 2 Subjective: Patient had a left heart cath this morning by Dr. Ann. This was negative for significant coronary artery disease. He denies chest pain or shortness of breath at this time Vitals/I&O/Wt Last Vital Signs Temp 98.1 F 07/01/24 12:00 Pulse 57 L 07/01/24 12:00 Resp 15 07/01/24 12:00 BP 114/66 07/01/24 12:00 Pulse Ox 94 07/01/24 12:00 O2 Del Method Room Air 07/01/24 12:00 06/30/24 07/01/24 07/01/24 22:59 06:59 14:59 Intake Total 900 / 900 0 / 900 Output Total 0 / 0 Balance 900 / 900 0 / 900 Weight last 48 hrs Weight 206 lb 4.8 oz Weight 204 lb 14.4 oz Weight 199 lb Physical Exam 2 Narrative: No acute distress Data 06/29/24 22:18 07/01/24 04:37 A&P Assessment and plan (1) Coronary artery disease: Qualifiers: Coronary Disease-Associated Artery/Lesion type: [place] artery [place] vs. transplanted heart: [place] heart Associated angina: without angina Q ualified Code(s): I25.10 - Atherosclerotic heart disease of [place] coronary artery without angina pectoris (2) Chest pain: Qualifiers: Chest pain type: other chest pain Qualified Code(s): R07.89 - Other chest pain (3) Accelerated hypertension: (4) NSTEMI (non-ST elevated myocardial infarction): (5) Hypertensive emergency: (6) DM type 2 (diabetes mellitus, type 2): Qualifiers: Diabetes mellitus terminal computer operator insulin use: without terminal computer operator use Diabetes mellitus complication status: without complication Qualified Code(s): E11.9 - Type 2 diabetes mellitus without complications Plan Patient's heart Without significant coronary artery disease. From a cardiology standpoint may be discharged once post cath protocol finished per Dr. Paulino. PDMP PDMP Reviewed: Not Reviewed Attestations 2 Medical Necessity Statement*: As stated above. Coding Level of Care Code Acute Code for Chg Fwd Diagnoses Coronary artery disease involving [place] coronary artery of [place] heart without angina pectoris I25.10 Coronary Disease-Associated Artery/Lesion type: [place] artery [place] vs. transplanted heart: [place] heart Associated angina: without angina Other chest pain R07.89 Chest pain type: other chest pain Accelerated hypertension I10 NSTEMI (non-ST elevated myocardial infarction) I21.4 Hypertensive emergency I16.1 Type 2 diabetes mellitus without complication, without long-term current use of insulin E11.9 Diabetes mellitus terminal computer operator insulin use: without fpc use Diabetes mellitus complication status: without complication
--- NOTE | 2024-07-01 14:30 | P.PN_ITS ---
Subjective 2 Subjective: Seen this morning. Awaiting for to go to coronary angiogram Chest pain has resolved. Vitals/I&O/Wt Last Vital Signs Temp 98.1 F 07/01/24 12:00 Pulse 57 L 07/01/24 12:00 Resp 15 07/01/24 12:00 BP 114/66 07/01/24 12:00 Pulse Ox 94 07/01/24 12:00 O2 Del Method Room Air 07/01/24 12:00 06/30/24 07/01/24 07/01/24 22:59 06:59 14:59 Intake Total 900 / 900 0 / 900 Output Total 0 / 0 Balance 900 / 900 0 / 900 Weight last 48 hrs Weight 93.576 kg Weight 92.941 kg Weight 90.265 kg Physical Exam 2 Narrative: Patient awake and alert Chest pain-free. No active shortness of breath nausea vomiting GCS 15 Nonfocal neuroexam Pleasant cooperative Euvolemic S1, S2 Currently on room air Data 06/29/24 22:18 07/01/24 04:37 A&P Assessment and plan (1) NSTEMI (non-ST elevated myocardial infarction): (2) Hypertensive emergency: Plan Non-STEMI Start ACS protocol Therapeutic aspirin and Lovenox along Plavix dose administered Echo requested Patient may need coronary angiogram Previous history of established coronary disease with STEMI and PCI 08/25 Will consult cardiology Patient is an active smoker with history of diabetes and hypertension, significant delta troponin, EKG showing ST depression nonspecific Hypertensive emergency: Off Cardene drip, I will use Nitropaste, lisinopril optimal dose, IV hydralazine on as-needed basis Active smoker: Nicotine patch N.p.o. DVT prophylaxis covered with therapeutic Lovenox Requested drug screen Accu-Cheks every 4-6 hours during n.p.o. status 07/01/2024 -Going to coronary angiogram today. Further recommendations to be made after results. If angiogram is negative patient may be able to get discharge later on today. cardio consulted PDMP PDMP Reviewed: Not Reviewed Attestations 2 Medical Necessity Statement*: Possible discharge today Diagnoses NSTEMI (non-ST elevated myocardial infarction) I21.4 Hypertensive emergency I16.1
--- NOTE | 2024-07-01 16:14 | PM.DCS ---
Discharge Providers Date of Admission: 06/30/24 05:39 Date of Discharge: July 01, 2024 Attending Provider at Admission: Woo Medrano MD Attending Provider at Discharge: Soledad Christian MD Primary Care Provider: Gerardo Ovalle MD Diagnoses at Discharge Discharge Diagnosis (1) NSTEMI (non-ST elevated myocardial infarction): Status: Resolved (2) Hypertensive emergency: Status: Resolved Reason for Visit Reason for Visit: cp Hospital Course Hospital Course Patient mated for chest pain and NSTEMI. ACS protocol was started. He also had hypertensive emergency on admission and required Cardene drip transiently. Eventually went for coronary angiogram with following results: 1. Patient previously placed stents in the LAD and circumflex. There was a moderate in-stent stenosis in the distal part of mid LAD stent. Mild disease in RCA. Normal LVEF. Recommendations * Aggressive medical therapy for coronary artery disease. Patient is chest pain-free at this time and plan is to discharge home in stable condition to follow-up with cardiology as an outpatient. Patient was given refill on all his medication for 1 month. He was also referred to endocrinology as an outpatient. Hemoglobin A1c 9.3. He is on glipizide at home. He was asked to restart metformin at 48 hours. Patient to follow-up with primary care doctor going forward. Physical Exam Narrative: Patient awake and alert Chest pain-free. No active shortness of breath nausea vomiting GCS 15 Nonfocal neuroexam Pleasant cooperative Euvolemic S1, S2 Currently on room air Discharge Data Studies Completed and Pending Completed Studies During Hospitalization Category Date Time Status WELCOME DESK AGENT request for service Routine Exams 07/01/24 09:43 Completed XR chest 1V portable [id number] Stat Exams 06/29/24 22:44 Completed CV. echo complete* [id number] Routine Ultrasound 06/30/24 04:01 Completed Radiology Impressions Chest X-Ray 06/29/24 22:44 IMPRESSION: No acute findings. Laboratory Results WBC 12.72 10^3/uL (3.29-11.43) H 06/29/24 22:18 RBC 6.40 10^6/uL (3.85-5.65) H 06/29/24 22:18 Hgb 18.20 g/dL (11.27-16.99) H 06/29/24 22:18 Hct 50.4 % (37-53) 06/29/24 22:18 MCV 78.8 fl (82-101) L 06/29/24 22:18 MCH 28.4 pg (27-33) 06/29/24 22:18 MCHC 36.1 g/dL (30-55) 06/29/24 22:18 RDW 12.8 % (12.1-15.1) 06/29/24 22:18 Plt Count 196 10^3/cmm (157-399) 06/29/24 22:18 MPV 10.7 fL (7.4-10.4) H 06/29/24 22:18 Neut % (Auto) 72.1 % 06/29/24 22:18 Lymph % (Auto) 22.0 % 06/29/24 22:18 Henry % (Auto) 4.3 % 06/29/24 22:18 Eos % (Auto) 0.6 % 06/29/24 22:18 Baso % (Auto) 0.4 % 06/29/24 22:18 Neut # (Auto) 9.17 10^3/uL (1.8-7.7) H 06/29/24 22:18 Lymph # (Auto) 2.8 10^3/uL (0.8-4.8) 06/29/24 22:18 Henry # (Auto) 0.6 10^3/uL (0.2-0.9) 06/29/24 22:18 Eos # (Auto) 0.1 10^3/uL (0.0-0.8) 06/29/24 22:18 Baso # (Auto) 0.1 10^3/uL (0.0-0.1) 06/29/24 22:18 Nucleated RBC % (auto) 0 % 06/29/24 22:18 Nucleated RBCs # 0.0 /100WBC 06/29/24 22:18 D-Dimer 0.39 ug/mLFEU (0-0.59) 06/30/24 04:28 Sodium 132 mmol/L (136-145) L 07/01/24 04:37 Potassium 4.0 mmol/L (3.5-5.1) 07/01/24 04:37 Chloride 100 mmol/L (98-107) 07/01/24 04:37 Carbon Dioxide 23 mmol/L (22-29) 07/01/24 04:37 Anion Gap 13.0 (5-19) 07/01/24 04:37 BUN 14 mg/dL (6-20) 07/01/24 04:37 Creatinine 0.9 mg/dL (0.7-1.2) 07/01/24 04:37 GFR Calculation 86.4 mL/min (90-130) L 07/01/24 04:37 Glucose 278 mg/dL (65-115) H 07/01/24 04:37 POC Glucose 226 mg/dL (70-110) H 07/01/24 11:34 Estimat Average Glucose 214 06/30/24 04:28 Hemoglobin A1c 9.1 % (4.0-6.0) H 06/30/24 04:28 Calculated Osmolality 284 mOsm/kg (285-295) L 07/01/24 04:37 Lactic Acid 3.5 mmol/L (0.5-2.2) H 06/29/24 22:18 Lactic Acid (Sepsis) 3.2 mmol/L (0.5-2.2) H 06/30/24 00:31 Calcium 8.9 mg/dL (8.5-10.5) 07/01/24 04:37 Phosphorus 2.4 mg/dL (2.5-4.5) L 07/01/24 04:37 Magnesium 1.9 mg/dL (1.7-2.3) 07/01/24 04:37 Total Bilirubin 0.7 mg/dL (0.15-1.2) 06/29/24 22:18 AST 18 U/L (0-40) 06/29/24 22:18 ALT 22 U/L (0-41) 06/29/24 22:18 Alkaline Phosphatase 158 U/L (40-130) H 06/29/24 22:18 Troponin T Baseline 28 ng/L (0-15) H 06/29/24 22:18 Troponin T 120 Minute 43.36 ng/L (0-15) H 06/30/24 00:31 Delta Troponin T 15.36 ABS# (0-10) H* 06/30/24 00:31 Troponin T Hi Sens 6Hr 110.4 ng/L (0-15) H 06/30/24 04:28 Troponin T Hi Sens 6Hr Delta 82.4 ng/L (0-12) H* 06/30/24 04:28 NT-Pro-B Natriuret Pep 245 pg/mL (0-125) H 06/29/24 22:18 Total Protein 7.6 g/dL (6.6-8.7) 06/29/24 22:18 Albumin 4.5 g/dL (3.5-5.2) 06/29/24 22:18 Globulin 3.1 g/dL (1.3-4.6) 06/29/24 22:18 Vitamin B12 380 pg/mL (232-1245) 06/30/24 04:28 TSH 1.20 uIU/mL (0.27-4.20) 06/30/24 04:28 Urine Opiates Screen Positive ng/mL (Negative) H 06/30/24 06:21 Ur Barbiturates Screen Negative ng/mL (Negative) 06/30/24 06:21 Ur Phencyclidine Scrn Negative ng/mL (Negative) 06/30/24 06:21 Ur Amphetamines Screen Negative ng/mL (Negative) 06/30/24 06:21 U Benzodiazepines Scrn Negative ng/mL (Negative) 06/30/24 06:21 Urine Cocaine Screen Negative ng/mL (Negative) 06/30/24 06:21 U Marijuana (THC) Screen Negative ng/mL (Negative) 06/30/24 06:21 Influenza A (PCR) Negative (Negative) 06/29/24 23:01 Influenza Type B (PCR) Negative (Negative) 06/29/24 23:01 RSV (PCR) Negative (Negative) 06/29/24 23:01 SARS-CoV-2 (PCR) Negative (Negative) 06/29/24 23:01 Vitals Last Vital Signs Temp 98.1 F 07/01/24 12:00 Pulse 57 L 07/01/24 12:00 Resp 15 07/01/24 12:00 BP 114/66 07/01/24 12:00 Pulse Ox 94 07/01/24 12:00 O2 Del Method Room Air 07/01/24 12:00 Discharge Plan Discharge Patient Disposition: Home Condition: Stable Prescriptions: New lisinopril 20 mg tablet 20 mg PO BID Qty: 60 0RF Continued aspirin 81 mg tablet,delayed release (DR/EC) 81 mg PO DAILY Qty: 30 0RF amlodipine 10 mg tablet 10 mg PO .qhs Qty: 30 0RF atorvastatin 80 mg tablet 80 mg PO BEDTIME Qty: 30 0RF cetirizine [Zyrtec] 10 mg tablet 10 mg PO DAILY PRN (Reason: allergy symptoms) Qty: 30 1RF metoprolol tartrate 25 mg tablet 25 mg PO BID@0900,2100 Qty: 60 0RF Changed clopidogrel 75 mg tablet 75 mg PO QPM Qty: 30 0RF fluticasone propionate [Flonase Allergy Relief] 50 mcg/actuation spray,suspension 2 spray intranasal DAILY PRN (Reason: allergies) Qty: 10 0RF Rx Instructions: administer into each nostril glipizide 5 mg tablet 5 mg PO QPM Qty: 30 0RF Held metformin 500 mg tablet extended release 24 hr 500 mg PO BID Qty: 180 0RF Hold Instructions: resume after 48 hours Discontinued losartan 100 mg tablet 100 mg PO QAM Discharge Orders: Discharge Order (Routine); Ordered 07/01/24 Ordered By: Soledad Christian Referrals: Sarah Beth Dobbs NP [Nurse Practitioner] - 7-10 days (We have notified your physician's clinic of the need for a follow-up appointment to be scheduled. If you have not heard from them within the next 2 business days, please call them directly. ) Dmitri Murcia MD [Physician] - 4-7 days (patient will need a referal from their primary care ) Gerardo Ovalle MD [Primary Care Provider] - 4-7 days (We have notified your physician's clinic of the need for a follow-up appointment to be scheduled. If you have not heard from them within the next 2 business days, please call them directly. ) Discharge Diet: Cardiac Discharge Activity: Limit activity as instructed Patient Instructions: Lisinopril (By mouth), Heart Attack (DC), Coronary Artery Disease (DC), Chest Pain (DC), Chronic Hypertension (DC), Hypertensive Crisis (DC), Chest Pain Stoplight, Opioid Safety, Post Angiogram Home Care Instructions, Post Heart Attack Stoplight Discharge Attestations Time Spent in Discharge Care*: greater than 30 min Quality Metrics Clinical Quality Measures [ No reported AMI, CVA or VTE this stay] Coding Level of Care Code Acute Code for [facility] Fwd Diagnoses NSTEMI (non-ST elevated myocardial infarction) I21.4 Hypertensive emergency I16.1
[2024-07-01 17:28] LABS: Glucose Point of Care 268 mg/dL (70-110)
--- NOTE | 2024-07-01 18:12 | PC.NURSE ---
discharge instructions given and explained.pt verb understanding of instructions.verb understanding of instructions.discharged via ambulatory to exit at this time.son to drive pt home
--- NOTE | 2024-07-01 18:21 | PC.NURSE ---
tr band slowly deflated and eventually removed at 1530.no hematoma noted.right hand remains warm to touch and with brisk capillary refill.site dressed with 2x2 gauze and secured with tegaderm drsg.pt instructed in activity restrictions s/p tr band removal and instructed to notify staff for any bleeding,pain,numbness,or for any concerns at all.pt verb understanding of instructions
== END 2024-07-01 18:14 | disposition home or self-care (01) | DRG 281 ==
LOC: ER 06-30 02:02 → ER IP 06-30 05:13 → CSU 06-30 13:09
PROVIDERS: Internal Medicine Cardiovascular Disease; Admitting Provider Internal Medicine; Emergency Provider Emergency Medicine; PCP Family Medicine; Visit Provider Internal Medicine
PROC: B2111ZZ Fluoroscopy of Multiple Coronary Arteries using Low Osmolar Contrast (ICD-10-PCS; principal; 2024-07-01 11:00)
DX: T82.855A Stenosis of coronary artery stent, initial encounter (principal); I16.1 Hypertensive emergency; I21.4 Non-ST elevation (NSTEMI) myocardial infarction; Y71.8 Miscellaneous cardiovascular devices associated with adverse incidents, not elsewhere classified; E11.9 Type 2 diabetes mellitus without complications; I25.10 Atherosclerotic heart disease of native coronary artery without angina pectoris; I10 Essential (primary) hypertension; F17.210 Nicotine dependence, cigarettes, uncomplicated; F17.220 Nicotine dependence, chewing tobacco, uncomplicated; I25.2 Old myocardial infarction; Z95.5 Presence of coronary angioplasty implant and graft; Z79.82 Long term (current) use of aspirin; Z79.02 Long term (current) use of antithrombotics/antiplatelets; Z79.84 Long term (current) use of oral hypoglycemic drugs
CPT/HCPCS: 36415; 36416; 71045; 80048; 80053; 80306; 82607; 82962; 83036; 83605; 83735; 83880; 84100; 84443; 84484; 85025; 85378; 87637; 93005; 93306; 93458; 94664; 96365; 96372; 96374; 96375; 96376; 99152; 99153; 99285; C1769; C1887; C1894; G0378; J0360; J1171; J1644; J1650; J1815; J2250; J2270; J2405; J3010; J3490; J7030; Q9967

== ENCOUNTER 2024-08-09 17:20 | Inpatient (IN) | payer OTHER, MEDICAID, SELFPAY ==
[2024-08-09] VITALS (13 sets, daily range): BP systolic 139–186; BP diastolic 83–108; PULSE 64–88; RESP 16–24; TEMP 36.8; O2SAT 94–97; BMI 30.8
--- NOTE | 2024-08-09 17:22 | ECG_ITS ---
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 Measurements Intervals [place] Rate: 73 P: 50 NV: 170 QRS: -18 QRSD: 97 T: 58 QT: 389 QTc: 430 Interpretive Statements SINUS RHYTHM Compared to ECG 06/30/2024 08:52:27 Ectopic atrial rhythm no longer present T-wave abnormality no longer present Electronically Signed On 08-09-2024 18:46:28 CDT by Coretta Velez M.D. [email or web address]
--- NOTE | 2024-08-09 17:23 | XRR_ITS ---
PROCEDURE INFORMATION: Exam: XR Chest Exam date and time: 08/09/2024 5:25 PM Age: 59 years old Clinical indication: Pain; Chest pressure; Prior surgery; Surgery date: 6+ months; Surgery type: Cardiac cath; Additional info: Chest pain TECHNIQUE: Imaging protocol: Radiologic exam of the chest. Views: 1 view. COMPARISON: CR (CHEST, ) 06/29/2024 10:47 PM FINDINGS: Lungs: Unremarkable. No consolidation. Pleural spaces: Unremarkable. No pleural effusion. No pneumothorax. Heart/Mediastinum: Unremarkable. No cardiomegaly. Bones/joints: Unremarkable. XR/XR chest 1V portable [id number] IMPRESSION: No acute findings.
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
[2024-08-09 17:42] LABS: Basophils # 0.1 10^3/uL (0.0-0.1); Basophils % 0.4 %; Eosinophils # 0.1 10^3/uL (0.0-0.8); Eosinophils % 0.9 %; Hematocrit 54.5 % (37-53); Lymphocytes % 26.3 %; Mean Corpuscular HGB Conc 35.4 g/dL (30-55); Mean Corpuscular Hemoglobin 28.8 pg (27-33); Mean Corpuscular Volume 81.5 fl (82-101); Mean Platelet Volume 10.4 fL (7.4-10.4); Monocytes # 0.5 10^3/uL (0.2-0.9); Monocytes % 4.1 %; Neutrophils # 7.67 10^3/uL (1.8-7.7); Neutrophils % 67.5 %; Nucleated Red Blood Cells % 0 %; Platelet Count 197 10^3/cmm (157-399); Red Blood Count 6.69 10^6/uL (3.85-5.65); White Blood Count 11.35 10^3/uL (3.29-11.43)
[2024-08-09] MEDS: nitroglycerin drip 50 MG/250 ML PREMIX IV (17:56)
[2024-08-09] MEDS: clopidogrel 300 mg Tablet 600 MG PO (17:56)
[2024-08-09 18:06] LABS: Troponin(5th) Baseline 40 ng/L (0-15)
[2024-08-09 18:11] LABS: Alanine Aminotransferase 25 U/L (0-41); Alkaline Phosphatase 146 U/L (40-130); Anion Gap 19.4 (5-19); Aspartate Amino Transferase 17 U/L (0-40); Blood Urea Nitrogen 12 mg/dL (6-20); Calcium 10.2 mg/dL (8.5-10.5); Carbon Dioxide 24 mmol/L (22-29); Chloride 100 mmol/L (98-107); Glomerular Filtration Rate 86.4 mL/min (90-130); Glucose 277 mg/dL (65-115); Osmolality Calculated 298 mOsm/kg (285-295); Potassium 4.4 mmol/L (3.5-5.1); Sodium 139 mmol/L (136-145); Total Bilirubin 0.9 mg/dL (0.15-1.2)
[2024-08-09 19:02] LABS: Troponin 5 2HR 70.66 ng/L (0-15)
[2024-08-09 19:03] LABS: Troponin 5 2HR Delta 30.66 ABS# (0-10)
--- NOTE | 2024-08-09 19:26 | ECG_ITS ---
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 Measurements Intervals [place] Rate: 81 P: 42 NH: 164 QRS: -5 QRSD: 94 T: 66 QT: 383 QTc: 447 Interpretive Statements SINUS RHYTHM Compared to ECG 08/09/2024 17:22:37 No significant changes Electronically Signed On 08-10-2024 21:34:15 CDT by Coretta Velez M.D. [email or web address]
[2024-08-09] MEDS: heparin 5,000 unit/mL INJ 1 mL IVP (19:56)
[2024-08-09] MEDS: heparin drip 25,000 UNIT/500 ML PREMIX 27 UNIT IV (20:00)
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
[2024-08-09 20:15] LABS: Platelet Count 181 10^3/cmm (157-399)
--- NOTE | 2024-08-09 20:44 | USCV_ITS ---
Malachi Ames Age: 59 Gender: M : 1965 Exam Date: 08/09/2024 21:20 Ordering Phys: Woo Medrano MD Technologist: MISA Exam Location: [facility] [place] Indication: Non-STEMI, history of HTN, nicotine dependence, CAD s/p cardiac stents 6 weeks ago BP: 158 / 98 HR: 72 Rhythm: Sinus Technical Quality: Adequate MEASUREMENTS (Male / Female) Normal Values 2D ECHO LV Diastolic Diameter PLAX 4.0 cm 4.2 - 5.9 / 3.9 - 5.3 cm IVS Diastolic Thickness 1.5 cm 0.6 - 1.0 / 0.6 - 0.9 cm IVS Systolic Thickness 2.0 cm LVPW Diastolic Thickness 1.6 cm 0.6 - 1.0 / 0.6 - 0.9 cm LVPW Systolic Thickness 2.4 cm LVOT Diameter 1.8 cm LV Ejection Fraction 2D Teich 64.5 % LV Ejection Fraction MOD 4C 52.4 % LV Ejection Fraction MOD 2C 49.5 % LV Ejection Fraction 2C AL 49.7 % LA Diameter 3.2 cm Aorta at Sinotubular Diameter 3.0 cm IVC Diameter 1.5 cm M-MODE LA Ao Ratio MM 1.2 AV Cusp Separation MM 1.8 cm DOPPLER AV Peak Velocity 147.0 cm/s LVOT Peak Velocity 124.0 cm/s AV Area Cont Eq vti 2.9 cm squared AV Area Cont Eq pk 2.2 cm squared MV Peak Velocity 76.0 cm/s MV Area PHT 2.8 cm squared Mitral E to A Ratio 0.6 TV Peak E Velocity 35.0 cm/s PV Peak Velocity 115.0 cm/s FINDINGS Left Ventricle Normal left ventricular size and systolic function, EF 64%.moderate left ventricular hypertrophy. . No regional wall motion abnormalities. Grade I/IV diastolic dysfunction (abnormal relaxation filling pattern), normal to mildly elevated filling pressures. Right Ventricle The right ventricle is normal in size and function. Right Atrium The right atrium is normal in size. Left Atrium The left atrium is normal in size. Mitral Valve No gross abnormalities noted Aortic Valve Trace to mild aortic valve regurgitation. Tricuspid Valve No gross abnormalities noted Pulmonic Valve No gross abnormalities noted Pericardium Normal pericardium without effusion. Aorta Normal ascending aorta dimension. IVC Normal IVC dimension with <50% respiratory change of the inferior vena cava. Estimated right atrial pressure of 10 mmHg. CONCLUSIONS Normal left ventricular size and systolic function, EF 64%.moderate left ventricular hypertrophy. . No regional wall motion abnormalities. Grade I/IV diastolic dysfunction (abnormal relaxation filling pattern), normal to mildly elevated filling pressures. Trace to mild aortic valve regurgitation. There is no pericardial effusion. There are no intracardiac masses. Compared to the previous study from 06/30/2024, there may not be a significant change Dr Coretta Velez MD FAC (Electronically Signed) Final Date: 10 August 2024 13:34 S
[2024-08-09 21:50] LABS: Glucose Point of Care 350 mg/dL (70-110)
[2024-08-09] MEDS: atorvastatin 40 mg Tablet 80 MG PO (21:54)
[2024-08-09] MEDS: metoprolol tartrate 25 mg Tablet PO (21:54)
[2024-08-09] MEDS: insulin lispro 100 unit/1 mL SUBCUT (21:54)
--- NOTE | 2024-08-09 22:28 | PC.NURSE ---
Received patient from ER, he is currently in the bathroom. Nitro gtt at 15 and heparin gtt at 27. Vital signs obtained and patient in gown complaining of 5/10 chest pain.
[2024-08-09 22:33] LABS: Troponin 5 6HR 103.7 ng/L (0-15)
[2024-08-09 22:34] LABS: Troponin 5 6HR Delta 63.7 ng/L (0-12)
--- NOTE | 2024-08-09 23:23 | ECG_ITS ---
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 Measurements Intervals [place] Rate: 55 P: 51 SC: 175 QRS: 5 QRSD: 103 T: 62 QT: 452 QTc: 436 Interpretive Statements SINUS BRADYCARDIA Compared to ECG 08/09/2024 19:26:39 Sinus rhythm no longer present Electronically Signed On 08-10-2024 21:33:52 CDT by Coretta Velez M.D. [email or web address]
[2024-08-10] VITALS (18 sets, daily range): BP systolic 100–172; BP diastolic 51–82; PULSE 49–79; RESP 16–32; TEMP 36.4–37.2; O2SAT 91–96
[2024-08-10] MEDS: morphine 4 mg/mL SDV 1 mL 2 MG IVP (01:26)
[2024-08-10 02:25] LABS: Basophils # 0.1 10^3/uL (0.0-0.1); Basophils % 0.5 %; Eosinophils # 0.2 10^3/uL (0.0-0.8); Eosinophils % 2.1 %; Hematocrit 44.8 % (37-53); Lymphocytes # 2.7 10^3/uL (0.8-4.8); Mean Corpuscular Hemoglobin 28.4 pg (27-33); Mean Corpuscular Volume 81.2 fl (82-101); Mean Platelet Volume 10.4 fL (7.4-10.4); Monocytes # 0.6 10^3/uL (0.2-0.9); Monocytes % 5.4 %; Neutrophils # 7.08 10^3/uL (1.8-7.7); Neutrophils % 66.4 %; Nucleated Red Blood Cells % 0 %; Platelet Count 163 10^3/cmm (157-399); Red Blood Count 5.52 10^6/uL (3.85-5.65); Red Cell Distribution Width 12.8 % (12.1-15.1); White Blood Count 10.65 10^3/uL (3.29-11.43)
[2024-08-10 02:44] LABS: Blood Urea Nitrogen 13 mg/dL (6-20); Calcium 9.3 mg/dL (8.5-10.5); Carbon Dioxide 24 mmol/L (22-29); Chloride 104 mmol/L (98-107); Glomerular Filtration Rate 86.4 mL/min (90-130); Glucose 152 mg/dL (65-115); Osmolality Calculated 291 mOsm/kg (285-295); Sodium 139 mmol/L (136-145)
[2024-08-10 02:50] LABS: Partial Thromboplastin Time 55.8 SECONDS (23.9-36.7)
[2024-08-10 06:17] LABS: Glucose Point of Care 216 mg/dL (70-110)
[2024-08-10] MEDS: insulin lispro 100 unit/1 mL SUBCUT ×4 (09:06→21:45)
[2024-08-10] MEDS: metoprolol tartrate 25 mg Tablet PO ×2 (09:06→21:46)
[2024-08-10] MEDS: pantoprazole 40 mg SDV IVP ×2 (09:06→18:20)
[2024-08-10] MEDS: aspirin 81 mg EC Tablet PO (09:06)
--- NOTE | 2024-08-10 09:23 | PC.CHAP ---
Pastoral Care Encounter/Spiritual Assessment Type of Contact [] Declined substation technician visit [] Patient/Family/Request visit [] Outpatient visit [] Follow-up visit [] Physician referral [] Code/Alert [] Routine visit [] Staff referral [] Actively dying [x] Patient sleeping [] Family support [] [] Out of room [] Palliative care [] [] Receiving care in room [] Pre-surgical visit [] Trauma [] Long length of stay [] ICU visit [] Other: Relational/Emotional Strength [] Patient feels connected with others/family/visitors/staff [] Distress [] Loneliness/isolation [] Abandonment Spirituality of Patient [] Person of Asha [] Attends Scientologist of their Asha [] Believes in Prayer [] Reads Bible or Sabianism materials [] There are Spiritual issues to be addressed Forest Ranger Interventions [] Prayer [] Active listening [] Non-anxious presence [] Spiritual/emotional support [] Crisis/trauma care [] Spiritual counseling [] Bereavement support [] Provided bereavement packet [] Provided Bible/devotional materials [] Provided toy/stuffed animal, coloring book to patient or family member [] Provided Communion [] Anointing/[place] [] Salvation [] Completed spiritual assessment [] Other: Impact on Illness or Injury [] Angry [] Fearful [] Anxious [] Often cries [] Exhaustion [] Unable to work [] Unable to attend mandaeism [] Unable to walk/stand [] Unable to read [] Unable to drive [] Unable to eat/drink [] Unable to sleep [] Unable to be with family [] Patient intubated [] Other: Summary Time spent with patient
[2024-08-10 09:47] LABS: Partial Thromboplastin Time 61.5 SECONDS (23.9-36.7)
[2024-08-10 12:06] LABS: Glucose Point of Care 201 mg/dL (70-110)
--- NOTE | 2024-08-10 13:28 | P.PN_ITS ---
Subjective 2 Subjective: Patient was seen this morning, denies any chest pain, no palpitations, no lightheadedness, no dizziness Vitals/I&O/Wt Last Vital Signs Temp 98.1 F 08/10/24 11:00 Pulse 51 L 08/10/24 11:00 Resp 20 H 08/10/24 11:00 BP 115/62 08/10/24 11:00 Pulse Ox 95 08/10/24 11:00 O2 Del Method Room Air 08/10/24 11:00 08/09/24 08/10/24 08/10/24 22:59 06:59 14:59 Intake Total 2.65 / 2.65 250.775 / 253.425 185.85 / 185.85 Balance 2.65 / 2.65 250.775 / 253.425 185.85 / 185.85 Weight last 48 hrs Weight 92.624 kg Weight 90.764 kg Weight 97.522 kg Physical Exam 2 Const: COMMON NORMALS: no acute distress and patient oriented x3 Resp: COMMON NORMALS: normal respiratory effort, No retractions, No use of accessory muscles and clear to auscultation bilaterally AUSCULTATION: clear to auscultation bilaterally Cardio: COMMON NORMALS: regular rate, regular rhythm, S1 normal heart sound present and S2 normal heart sound present RATE: regular rate RHYTHM: r egular rhythm HEART SOUNDS: S1 normal heart sound present and S2 normal heart sound present GI: COMMON NORMALS: Normal to inspection, nondistended, normoactive bowel sounds present and non-tender Extremity: COMMON NORMALS: no pedal edema Neuro: COMMON NORMALS: patient oriented x3 Psych: COMMON NORMALS: mental status grossly normal Data 08/10/24 02:17 08/10/24 02:17 A&P Assessment and plan (1) Coronary artery disease: Qualifiers: Coronary Disease-Associated Artery/Lesion type: [place] artery [place] vs. transplanted heart: [place] heart Associated angina: without angina Q ualified Code(s): I25.10 - Atherosclerotic heart disease of [place] coronary artery without angina pectoris (2) Hx of non-ST elevation myocardial infarction (NSTEMI): (3) Acute non-ST elevation myocardial infarction (NSTEMI): (4) DM type 2 (diabetes mellitus, type 2): Qualifiers: Diabetes mellitus terminal makeup operator insulin use: without chcf use Diabetes mellitus complication status: without complication Qualified Code(s): E11.9 - Type 2 diabetes mellitus without complications (5) Tobacco use disorder: Plan Non-STEMI Established coronary disease Active smoker History of noncompliance Recently had coronary angiogram 07/01 1. Patient previously placed stents in the LAD and circumflex. There was a moderate in-stent stenosis in the distal part of mid LAD stent. Mild disease in RCA. Normal LVEF Patient has been loaded with aspirin and Plavix Cardiac echo Currently on nitroglycerin and heparin drip Cardiac diet, n.p.o. midnight Cardiology notified and consulted Uncontrolled diabetes Low-dose sliding scale Hypertension: Continue amlodipine and metoprolol Active smoker: Smokes 4 to 5 cigarettes a day, nicotine cessation counseling Full code N.p.o. after midnight Currently on heparin drip Monitor for chest pain, heparin drip, nitro drip PDMP PDMP Reviewed: Not Reviewed Attestations 2 Medical Necessity Statement*: Patient requires hospitalization for NSTEMI, Diagnoses Coronary artery disease involving [place] coronary artery of [place] heart without angina pectoris I25.10 Coronary Disease-Associated Artery/Lesion type: [place] artery [place] vs. transplanted heart: [place] heart Associated angina: without angina Hx of non-ST elevation myocardial infarction (NSTEMI) I25.2 Acute non-ST elevation myocardial infarction (NSTEMI) I21.4 Type 2 diabetes mellitus without complication, without long-term current use of insulin E11.9 Diabetes mellitus chcf insulin use: without terminal makeup operator use Diabetes mellitus complication status: without complication Tobacco use disorder F17.200
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
[2024-08-10] MEDS: heparin drip 25,000 UNIT/500 ML PREMIX 27 UNIT IV (15:06)
[2024-08-10 16:05] LABS: Partial Thromboplastin Time 55.6 SECONDS (23.9-36.7)
[2024-08-10 16:49] LABS: Glucose Point of Care 193 mg/dL (70-110)
[2024-08-10] MEDS: clopidogrel 75 mg Tablet PO (18:20)
[2024-08-10 20:08] LABS: Partial Thromboplastin Time 64.4 SECONDS (23.9-36.7)
[2024-08-10 21:02] LABS: Glucose Point of Care 235 mg/dL (70-110)
[2024-08-10] MEDS: atorvastatin 40 mg Tablet 80 MG PO (21:46)
[2024-08-11 00:11] VITALS: BP 110/63; PULSE 51; RESP 13; TEMP 36.6; O2SAT 96
[2024-08-11 03:46] LABS: Basophils # 0.1 10^3/uL (0.0-0.1); Basophils % 0.6 %; Eosinophils # 0.2 10^3/uL (0.0-0.8); Eosinophils % 2.1 %; Hematocrit 42.7 % (37-53); Lymphocytes # 2.4 10^3/uL (0.8-4.8); Lymphocytes % 29.1 %; Mean Corpuscular HGB Conc 34.7 g/dL (30-55); Mean Corpuscular Hemoglobin 28.7 pg (27-33); Mean Corpuscular Volume 82.8 fl (82-101); Mean Platelet Volume 10.6 fL (7.4-10.4); Monocytes # 0.4 10^3/uL (0.2-0.9); Monocytes % 5.4 %; Neutrophils # 5.05 10^3/uL (1.8-7.7); Neutrophils % 61.8 %; Nucleated Red Blood Cells % 0 %; Platelet Count 144 10^3/cmm (157-399); Red Blood Count 5.16 10^6/uL (3.85-5.65); Red Cell Distribution Width 12.9 % (12.1-15.1); White Blood Count 8.17 10^3/uL (3.29-11.43)
[2024-08-11 04:06] LABS: Partial Thromboplastin Time 88.5 SECONDS (23.9-36.7)
[2024-08-11 04:14] LABS: Alanine Aminotransferase 17 U/L (0-41); Albumin Level 3.7 g/dL (3.5-5.2); Alkaline Phosphatase 106 U/L (40-130); Aspartate Amino Transferase 13 U/L (0-40); Blood Urea Nitrogen 12 mg/dL (6-20); Carbon Dioxide 22 mmol/L (22-29); Chloride 106 mmol/L (98-107); Creatinine Clr Calc Pharmacy 90.9558; Globulin 2.4 g/dL (1.3-4.6); Glomerular Filtration Rate 76.5 mL/min (90-130); Glucose 227 mg/dL (65-115); Magnesium 1.9 mg/dL (1.7-2.3); Osmolality Calculated 293 mOsm/kg (285-295); Phosphorus 3.8 mg/dL (2.5-4.5); Sodium 138 mmol/L (136-145); Total Bilirubin 0.7 mg/dL (0.15-1.2); Total Protein 6.1 g/dL (6.6-8.7)
[2024-08-11 04:25] VITALS: BP 133/77; PULSE 49; RESP 20; TEMP 36.6; O2SAT 96
[2024-08-11] MEDS: diphenhydrAMINE 50 mg Capsule PO (05:04)
[2024-08-11] MEDS: sodium chloride 0.9% 1,000 ML 50 ML IV (05:04)
[2024-08-11] MEDS: aspirin 81 mg EC Tablet PO (05:51)
[2024-08-11] MEDS: clopidogrel 75 mg Tablet PO (05:51)
[2024-08-11] MEDS: metoprolol tartrate 25 mg Tablet PO (05:51)
[2024-08-11 06:18] LABS: Glucose Point of Care 229 mg/dL (70-110)
--- NOTE | 2024-08-11 06:39 | P.HPUD_ITS ---
Surgery/Procedure H&P Update DATE OF PROCEDURE: August 11, 2024 DATE H&P PERFORMED: 08/11/24 H&P UPDATE INFORMATION: I have reviewed H&P completed within last 30 days, I have examined patient prior to procedure and No changes to prior documentation PREOP DIAGNOSIS: Non-STEMI PRIMARY INDICATION FOR PROCEDURE: Chest pain admitted and ruled in for non-ST elevation [place], patient has prior history of coronary artery disease PLANNED PROCEDURE: Operation Date: 08/11/24 06:00 Proposed Procedures p Cardiac Catheterization(Left) - Woo Isabel MD PATIENT REASSESSED PRIOR TO SEDATION, WITH NO CHANGE NOTED: Yes PHYSICAL EXAM: alert, oriented x 3, clear to auscultation bilaterally, regular rate & rhythm and operative site marked AIRWAY EVAL/ANESTHESIA PLAN: ASA II, Risks, benefits & alternatives of sedation and/or procedure discussed and Patient agrees to continue as planned ADDITIONAL INFORMATION: All risk-benefit and alternative for the procedure has been explained to the patient. Patient understand 2% risk of stroke major bleed, patient understand 5% risk of minor bleeding oozing infection hematoma pseudoaneurysm urgent emergent vascular or bypass surgery including contrast induced nephropa thy leading to temporary or permanent dialysis.
[2024-08-11 07:51] VITALS: BP 133/74; PULSE 43; RESP 10; TEMP 36.6; O2SAT 94
--- NOTE | 2024-08-11 07:53 | P.PCN_ITS ---
Procedure Note: Date of procedure: 08/11/24 Pre-procedure diagnosis: Non- STEMI Procedure: Left heart cath/percutaneous angioplasty for IFR positive mid LAD severe in- stent restenosis Left main: Luminal irregularity without significant stenosis LAD has high-grade mid in-stent restenosis borderline to positive by IFR, distal LAD has 60 to 70% stenosis not significant on IFR LCx has luminal irregularity without significant stenosis RCA has luminal irregularities without significant stenosis Percutaneous angioplasty using noncompliant balloon with excellent angiographic result for in-stent restenosis 70% eccentric in-stent restenosis was reduced to 10%. Plan: Radial band as per protocol Continue aspirin statin low-dose beta-lyudmila and Plavix Continue IV fluid for next 5 hours Possible discharge today Coding Level of Care Code Acute Code for [facility]wd
--- NOTE | 2024-08-11 07:56 | P.PN_ITS ---
Subjective 2 Subjective: Patient underwent left heart catheterization today noted to have severe mid LAD in-stent restenosis borderline to positive by IFR treated with balloon angioplasty with excellent angiographic result 70% in-stent restenosis was reduced to 10%. Vitals/I&O/Wt Last Vital Signs Temp 97.9 F 08/11/24 04:25 Pulse 49 L 08/11/24 04:25 Resp 20 H 08/11/24 04:25 BP 133/77 08/11/24 04:25 Pulse Ox 96 08/11/24 04:25 O2 Del Method Room Air 08/11/24 04:25 08/10/24 08/11/24 08/11/24 22:59 06:59 14:59 Intake Total 749.40 / 1413.65 425.4 / 1839.05 Balance 749.40 / 1413.65 425.4 / 1839.05 Weight last 48 hrs Weight 206 lb 1 oz Weight 204 lb 3.2 oz Weight 200 lb 1.6 oz Weight 215 lb Physical Exam 2 Const: COMMON NORMALS: alert OTHER: GENERAL: Patient is alert, awake and oriented x3. HEART: Regular S1 and S2. No murmur, rub or gallop. LUNGS: Clear to auscultate bilaterally. CENTRAL NERVOUS SYSTEM: Grossly nonfocal. EXTREMITIES: Lower extremities with out edema bilaterally. Resp: COMMON NORMALS: clear to auscultation bilaterally AUSCULTATION: clear to auscultation bilaterally Neuro: SENSORIUM/ORIENTATION: Yes alert Data 08/11/24 03:35 08/11/24 03:35 A&P Assessment and plan (1) Acute non-ST elevation myocardial infarction (NSTEMI): (2) Coronary artery disease: Qualifiers: Coronary Disease-Associated Artery/Lesion type: [place] artery [place] vs. transplanted heart: [place] heart Associated angina: without angina Q ualified Code(s): I25.10 - Atherosclerotic heart disease of [place] coronary artery without angina pectoris (3) Accelerated hypertension: (4) Tobacco use disorder: Plan Left heart cath/percutaneous angioplasty for IFR positive mid LAD severe in- stent restenosis Left main: Luminal irregularity without significant stenosis LAD has high-grade mid in-stent restenosis borderline to positive by IFR, distal LAD has 60 to 70% stenosis not significant on IFR LCx has luminal irregularity without significant stenosis RCA has luminal irregularities without significant stenosis Percutaneous angioplasty using noncompliant balloon with excellent angiographic result for in-stent restenosis 70% eccentric in-stent restenosis was reduced to 10%. Plan: Radial band as per protocol Continue aspirin statin low-dose beta-lyudmila and Plavix Continue IV fluid for next 5 hours Possible discharge today PDMP PDMP Reviewed: Not Reviewed Attestations 2 Medical Necessity Statement*: As per medicine Coding Level of Care Code Acute Code for [facility] Fwd Diagnoses Acute non-ST elevation myocardial infarction (NSTEMI) I21.4 Coronary artery disease involving [place] coronary artery of [place] heart without angina pectoris I25.10 Coronary Disease-Associated Artery/Lesion type: [place] artery [place] vs. transplanted heart: [place] heart Associated angina: without angina Accelerated hypertension I10 Tobacco use disorder F17.200
[2024-08-11] MEDS: sodium chloride 0.9% 1,000 ML 100 ML IV (08:00)
[2024-08-11] MEDS: insulin lispro 100 unit/1 mL SUBCUT ×2 (09:14→12:30)
[2024-08-11] MEDS: pantoprazole 40 mg SDV IVP (09:15)
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
[2024-08-11 11:40] VITALS: BP 145/71; PULSE 53; RESP 14; TEMP 36.6; O2SAT 98
[2024-08-11 11:47] LABS: Glucose Point of Care 181 mg/dL (70-110)
[2024-08-11 15:53] VITALS: BP 145/77; PULSE 55; RESP 20; TEMP 36.4; O2SAT 93
[2024-08-11 16:01] VITALS: BP 145/77; PULSE 56; O2SAT 93
== END 2024-08-11 16:44 | disposition home or self-care (01) | DRG 250 ==
LOC: ER 19:35 → CSU 21:08
PROVIDERS: Family Medicine; Internal Medicine Cardiovascular Disease; Admitting Provider Internal Medicine; Emergency Provider Emergency Medicine; PCP Family Medicine; Visit Provider Family Medicine
DX: T82.855A Stenosis of coronary artery stent, initial encounter (principal); I21.4 Non-ST elevation (NSTEMI) myocardial infarction; Y71.1 Therapeutic (nonsurgical) and rehabilitative cardiovascular devices associated with adverse incidents; I25.10 Atherosclerotic heart disease of native coronary artery without angina pectoris; F17.200 Nicotine dependence, unspecified, uncomplicated; E78.5 Hyperlipidemia, unspecified; E11.9 Type 2 diabetes mellitus without complications; I50.9 Heart failure, unspecified; I11.0 Hypertensive heart disease with heart failure; T39.016A Underdosing of aspirin, initial encounter; T45.526A Underdosing of antithrombotic drugs, initial encounter; Z91.138 Patient's unintentional underdosing of medication regimen for other reason; F17.210 Nicotine dependence, cigarettes, uncomplicated; I25.2 Old myocardial infarction; Z79.84 Long term (current) use of oral hypoglycemic drugs; Z79.899 Other long term (current) drug therapy; Z79.82 Long term (current) use of aspirin; Z79.02 Long term (current) use of antithrombotics/antiplatelets; Z86.73 Personal history of transient ischemic attack (TIA), and cerebral infarction without residual deficits; Z91.148 Patient's other noncompliance with medication regimen for other reason
CPT/HCPCS: 36415; 36416; 71045; 80048; 80053; 82962; 83735; 84100; 84484; 85025; 85049; 85347; 85730; 92920; 93005; 93306; 93454; 93571; 96365; 96366; 96367; 96372; 96374; 96376; 99152; 99153; 99285; C1725; C1769; C1887; C1894; J1644; J1815; J2250; J2270; J2470; J3010; J3490; J7030; J9999; Q0163; Q9967

== ENCOUNTER → 2024-11-16 16:06 | Outpatient (BNVA) | payer OTHER, MEDICAID, SELFPAY | PROVIDERS: PCP Family Medicine; Visit Provider Family Medicine | DX: E11.9 Type 2 diabetes mellitus without complications (principal) | CPT/HCPCS: 80053; 80061; 83036 ==

== ENCOUNTER → 2025-03-10 09:05 | Outpatient (BNVA) | payer OTHER, SELFPAY | PROVIDERS: PCP Family Medicine; Visit Provider Family Medicine | DX: E11.9 Type 2 diabetes mellitus without complications (principal) | CPT/HCPCS: 80053; 83036 ==